=== PATIENT | male | born 1950 | race Caucasian/White ===

== ENCOUNTER 2019-01-03 00:30 | Inpatient (IN) | payer MEDICARE, OTHER ==
[2019-01-03 01:06] LABS: #Basophils 0.1 thou/uL (0.0-0.2); #Eosinphils 0.3 thou/uL (0.0-0.7); #Lymphocytes 1.5 thou/uL (1.20-3.40); #Monocytes 0.7 thou/uL (0.11-0.59); #Neutrophils 7.4 thou/uL (1.40-6.50); %Basophils 0.7 % (0.0-1.0); %Eosinophils 2.7 % (0.0-10.0); %Monocytes 7.2 % (0.0-10.0); %Neutrophils 74.4 % (42.0-75.0); Hemoglobin 13.9 g/dL (14.0-18.0); Mean Corpuscular HGB CONC 34.2 g/dL (32.0-36.0); Mean Corpuscular Hemoglobin 31.9 pg (27.0-31.0); Mean Corpuscular Volume 93.2 fL (78.0-98.0); Mean Platelet Volume 8.6 fL (7.4-10.4); Platelet Count 193 thou/uL (130-400); RBC Distribution Width 12.1 % (11.5-14.5); Red Blood Cell (RBC) Count 4.35 mill/uL (4.70-6.10); White Blood Cell (WBC) Count 9.9 thou/uL (4.8-10.8)
[2019-01-03] MEDS ORDERED: Ondansetron PF 4 MG/2 ML Vial ONE (01:08)
[2019-01-03] MEDS ORDERED: Morphine 4 MG/ML VIAL ONE (01:08)
[2019-01-03] MEDS ORDERED: Ketorolac Tromethamine 30 MG/ML VIAL ONE (01:08)
[2019-01-03 01:26] LABS: ALT (SGPT) 26 U/L (8-55); AST (SGOT) 23 U/L (5-34); Albumin 4.1 g/dL (3.4-4.8); Alkaline Phosphatase 54 U/L (40-150); Anion Gap 15 mmol/L (10-20); BUN (Urea Nitrogen) 40 mg/dL (8.4-25.7); Bilirubin, Total 0.4 mg/dL (0.2-1.2); Calc. Creatinine Clearance 0 mL/min (70-130); Calcium 10.3 mg/dL (7.8-10.44); Carbon Dioxide 25 mmol/L (23-31); Chloride 102 mmol/L (98-107); Estimated GFR-MDRD 34; Glucose 171 mg/dL (80-115); Potassium 4.3 mmol/L (3.5-5.1); Protein, Total 7.1 g/dL (5.8-8.1); Sodium 138 mmol/L (136-145)
[2019-01-03 02:12] LABS: Bacteria/HPF None Seen HPF (None Seen); Bilirubin Negative (Negative); Blood, Urine 2+ (Negative); Clarity Clear (Clear); Glucose, Urine (Dipstick) 100 mg/dL (Negative); Leukocyte Negative Leu/uL (Negative); Nitrite Negative (Negative); Protein, Urine (Dipstick) 20 mg/dL (Neg-Trace); RBC/HPF 21-50 HPF (0-3); Squamous Epithelial None Seen HPF (0-3); Urobilinogen Normal mg/dL (Less than 2); WBC/HPF 0-3 HPF (0-3)
[2019-01-03 02:20] LABS: Calcium Oxalate Crystals 2+ HPF (None Seen)
[2019-01-03] MEDS ORDERED: Acetaminophen 325 MG TAB PO PRN ×2 (04:39→09:30)
[2019-01-03] MEDS ORDERED: Ondansetron ODT 4 MG TAB SL PRN (04:39)
[2019-01-03] MEDS ORDERED: Ondansetron PF 4 MG/2 ML Vial IVP PRN (04:39)
[2019-01-03] MEDS ORDERED: Morphine 2 MG/ML SYRINGE SLOW IVP PRN (04:40)
[2019-01-03] MEDS ORDERED: Morphine 4 MG/ML VIAL SLOW IVP PRN (04:40)
[2019-01-03 04:47] VITALS: BMI 41.3
--- NOTE | 2019-01-03 07:41 | CT ---
PRELIMINARY REPORT/[facility]/EMERGENCY AFTER HOURS PROCEDURE: EXAM: CT Abdomen and Pelvis Without Contrast EXAM DATE/TIME: 01/03/2019 12:58 AM CLINICAL HISTORY: 68 years old, male; Abdominal pain; Prior surgery; Patient HX: [id number] presents to the ED with right testicular pain onset 2.5 hours ago. PT reports the pain radiates to his back (right flank). PT state s pain today is similar to previous kidney stone. PT reports he had to have lithotripsy to remove stone TECHNIQUE: Imaging protocol: Axial computed tomography images of the abdomen and pelvis without contrast. COMPARISON: No relevant prior studies available. FINDINGS: Liver: Hepatic steatosis. Gallbladder and bile ducts: Normal. No calcified stones. No ductal dilation. Pancreas: Normal. No ductal dilation. Spleen: Normal. No splenomegaly. Adrenals: Normal. No mass. Kidneys and ureters: 1.2 cm obstructing stone proximal right ureter causing mild to moderate obstructive uropathy. Left renal cysts. Stomach and bowel: No bowel wall thickening or intestinal obstruction. Appendix: Normal appendix. Intraperitoneal space: Normal. No free air. No significant fluid collection. Vasculature: Normal. No abdominal aortic aneurysm. Lymph nodes: Normal. No enlarged lymph nodes. Bladder: Unremarkable as visualized. Reproductive: Unremarkable as visualized. Bones/joints: No acute fracture. No dislocation. Soft tissues: Unremarkable. IMPRESSION: 1.2 cm obstructing stone proximal right ureter causing mild to moderate obstructive uropathy. Thank you for allowing us to participate in the care of your patient. Dictated and Authenticated by: Carlitos Almaraz MD 01/03/2019 2:13 AM Central Time ([place] & [place]) FINAL REPORT CT ABDOMEN AND PELVIS WITHOUT CONTRAST: FINDINGS/IMPRESSION: I agree with the preliminary report given by Dr. Carlitos Almaraz of [facility]. Transcribed Date/Time: 01/03/2019 7:53 AM
[2019-01-03 08:28] LABS: #Eosinphils 0.2 thou/uL (0.0-0.7); #Lymphocytes 1.5 thou/uL (1.20-3.40); #Monocytes 0.8 thou/uL (0.11-0.59); #Neutrophils 5.8 thou/uL (1.40-6.50); %Basophils 0.4 % (0.0-1.0); %Eosinophils 2.6 % (0.0-10.0); %Lymphocytes 17.4 % (21.0-51.0); %Monocytes 9.8 % (0.0-10.0); %Neutrophils 69.7 % (42.0-75.0); Hemoglobin 13.5 g/dL (14.0-18.0); Mean Corpuscular HGB CONC 34.3 g/dL (32.0-36.0); Mean Corpuscular Hemoglobin 31.7 pg (27.0-31.0); Mean Corpuscular Volume 92.4 fL (78.0-98.0); Mean Platelet Volume 8.9 fL (7.4-10.4); Platelet Count 183 thou/uL (130-400); RBC Distribution Width 12.1 % (11.5-14.5); Red Blood Cell (RBC) Count 4.26 mill/uL (4.70-6.10); White Blood Cell (WBC) Count 8.4 thou/uL (4.8-10.8)
[2019-01-03 08:37] LABS: Hemoglobin A1c 7.2 % (4.0-6.0)
[2019-01-03 08:48] LABS: Anion Gap 15 mmol/L (10-20); BUN (Urea Nitrogen) 43 mg/dL (8.4-25.7); Calc. Creatinine Clearance 74 mL/min (70-130); Calcium 9.7 mg/dL (7.8-10.44); Carbon Dioxide 24 mmol/L (23-31); Chloride 105 mmol/L (98-107); Estimated GFR-MDRD 35; Glucose 128 mg/dL (80-115); Potassium 4.7 mmol/L (3.5-5.1); Sodium 139 mmol/L (136-145)
[2019-01-03] MEDS ORDERED: Ondansetron PF 4 MG/2 ML Vial SLOW IVP PRN (09:33)
[2019-01-03] MEDS: Sodium Chloride 0.9% 1,000 ML IV SCH ×3 (09:35→22:33)
[2019-01-03] MEDS: Morphine 4 MG/ML VIAL SLOW IVP PRN ×2 (14:12→23:09)
[2019-01-03] MEDS ORDERED: Iothalamate Meglumine 60% 50 ML VIAL FS ONE (19:48)
[2019-01-03] MEDS ORDERED: Fentanyl 100 MCG/2 ML VIAL ONE ×2 (20:29→20:41)
[2019-01-03] MEDS ORDERED: B & O ONE (20:40)
[2019-01-03] MEDS ORDERED: Simvastatin 5 MG TAB PO SCH (21:00)
[2019-01-03] MEDS ORDERED: PACU-Morphine 4MG/ML VIAL SLOW IVP PRN (21:41)
[2019-01-03] MEDS ORDERED: Promethazine HCl 25 MG/ML VIAL SLOW IVP PRN ×2 (21:41→21:43)
[2019-01-03] MEDS ORDERED: HYDROmorphone 2 MG/ML VIAL SLOW IVP PRN (21:41)
[2019-01-03] MEDS ORDERED: Ondansetron HCl/PF 4 MG/2 ML Vial IVP PRN ×2 (21:41→21:43)
[2019-01-03] MEDS ORDERED: Promethazine HCl 25 MG/ML VIAL IM PRN ×2 (21:41→21:43)
[2019-01-03] MEDS ORDERED: HYDROcodone/Acetaminophen 5/325 mg Tablet PO PRN (21:58)
[2019-01-03] MEDS ORDERED: Trospium 20 MG TAB PO SCH (22:15)
[2019-01-03] MEDS: Lisinopril 10 MG TAB PO SCH (22:33)
--- NOTE | 2019-01-03 22:56 | CON ---
DATE OF CONSULTATION: 01/03/2019 REASON FOR CONSULTATION: 1. Right-sided flank pain with nausea and radiation of pain to the right testicle. 2. Right-sided 1.1 cm calculus, lodged at the right ureteropelvic junction. HISTORY OF PRESENT ILLNESS: Mr. 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 He had a lithotripsy to treat his previous stone and was previously a patient of the [facility]. The patient on this admission developed acute onset right-sided flank pain with radiation to his right testicle. He has had severe pain symptoms and has relatively large stone. His comorbid medical factors include obesity, CDC class 3+ with a current BMI of 41.4, and diabetes, currently on metformin 500 mg twice daily. The patient has been n.p.o. since 01/02/2019. ALLERGIES: NO KNOWN DRUG ALLERGIES. HOME MEDICATIONS: Complete home medication list includes the followin. Metformin 500 mg p.o. b.i.d. 2. Simvastatin 20 mg p.o. at bedtime. 3. Krill oil one tablet p.o. daily. 4. Vitamin D3 2000 units p.o. daily. 5. Aspirin 81 mg p.o. daily. PAST MEDICAL HISTORY: 1. Kidney stones. 2. Dyslipidemia. 3. Diabetes mellitus, type 2. PAST SURGICAL HISTORY: 1. The patient has had arthroscopic surgery of his shoulder. 2. Extracorporeal shockwave lithotripsy of a kidney stone many years ago. FAMILY MEDICAL HISTORY: Not contributory. 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 He coached in [place] and now lives in the [facility]. No current substance abuse issues. He is a never smoker. PHYSICAL EXAMINATION: VITAL SIGNS: The patient is afebrile. Current temperature 98.1, pulse 72, respirations 16, O2 saturation on room air is 96%, and blood pressure is 151/82. He is currently on morphine for pain management. HEAD, EYES, EARS, NOSE, AND THROAT: Extraocular movements are intact. Sclerae are anicteric. Oropharynx is clear. NECK: Supple. LUNGS: Clear to auscultation bilaterally. There are body morphology associated auscultatory changes to the lungs. CARDIAC: Regular rate and rhythm. ABDOMEN: Soft, obese, and nontender. BACK: There is mild right-sided costovertebral angle tenderness. There is no tenderness on the left side. The patient reports radiation of pain symptoms to his right testis. GENITOURINARY: The phallus is circumcised and it is without lesion. Urethral meatus appears adequate. Testes are present bilaterally in the scrotum. They are smooth, anodular, and nontender. Palpation of inguinal canals finds no evidence of hernia. Digital rectal examination is deferred. EXTREMITIES: Within normal limits. RADIOLOGIC STUDIES: A CT scan of the abdomen and pelvis was performed at 12:59 a.m. on 01/03/2019. This study demonstrates multiple renal cysts on the left kidney. On the right side, there is a large calculus, which measures over 1 cm, lodged at the ureteropelvic junction. There is perinephric stranding or possible extravasation of urine in the midportion of the right kidney. The distal ureter appears to be decompressed on the right and left side. The patient's bladder is thin walled indicating probable reasonable emptying. The patient's prostate gland was moderately enlarged. There did not appear to be a significant mass associated with the prostate based on the CT imaging studies. There are no calcifications observed either. LABORATORY STUDIES: The patient's white count is 8400, hemoglobin is 13.5 with hematocrit of 39.4, and neutrophil count is normal, range at 69.7% with an ANC decreasing from 7.4 yesterday to 5.8 today. Serum chemistries show an apparent bump in the patient's creatinine and blood urea nitrogen measured at 43 on blood urea nitrogen today and 1.92 on creatinine today. His hemoglobin A1c is elevated at 7.2. Serum calcium is elevated at admission at 10.3. Potassium is in the normal range. ASSESSMENT: Right-sided ureteropelvic junction obstructing calculus at 1.1 cm. Stone is too high to directly address today other than by stenting. I am recommending a right double-J ureteral stent with interval hydration and possible dilation of the ureter passively. The patient has had previous success with extracorporeal shockwave lithotripsy, which would suggest a stone that possibly could be treated using lithotripsy; however, he has calcium oxalate crystals observed in his urine on the urinalysis, and due to that, likely has calcium oxalate stones. These are better addressed by ureteroscopic means and that could be arranged after an appropriate period of dilation with an indwelling stent. DISPOSITION/PLANS: This patient does not appear to be otherwise toxic other than the history of diabetes and would be appropriate for discharge home if appropriately stable after placement of a stent today. The patient's discharge medications will probably require VESIcare for bladder spasm, phenazopyridine, appropriate antibiotic, and pain medications such as [place]. Over 45 minutes of initial consultation and assessment time was spent in evaluation of this patient today exclusive of any surgical procedures performed. Job ID: [id number]
--- NOTE | 2019-01-04 02:01 | HP ---
CHIEF COMPLAINT ON ADMISSION: Right-sided testicular pain with obstructive nephrolithiasis. HISTORY OF PRESENT ILLNESS: The patient is a 68-year-old male who states he woke up from sleep at about 2 in the morning with severe right testicular pain. It radiated into his back. It felt similar to other episodes he has had that were due to kidney stones. It was most severe in his right testicle and was rated at 3/10 on arrival in the emergency room. The sudden onset also was associated with nausea, but he has not vomited. Denies diarrhea as well a fever or constipation. CT in the emergency room revealed a 1.2, right-sided ureteral stone. Dr. Morrison was contacted for admission and Dr. Suarez has already agreed to see the patient in consultation. PAST MEDICAL HISTORY: Significant for non-insulin dependent diabetes, history of kidney stones, osteoarthritis, obesity, noncompliance generally with medical care and dyslipidemia. PAST SURGICAL HISTORY: Includes shoulder surgery in 2003. SOCIAL HISTORY: He is a past smoker and has quit smoking less than 10 years ago, approximately 3 years ago. Denies drug or alcohol use. ALLERGIES: HE HAS NO KNOWN DRUG ALLERGIES. MEDICATIONS ON ADMISSION: Include: 1. Simvastatin 10 mg daily. 2. Aspirin 81 mg daily. 3. Metformin 500 mg daily. REVIEW OF SYSTEMS: At the time of admission, CONSTITUTIONAL: Denies fever, chills or general malaise. HEENT: Denies drainage, pain or sores in his ear, nose or throat. CHEST: Denies cough or dyspnea. CARDIOVASCULAR: Denies chest pain or palpitations. GI: Admits to nausea, but no vomiting or diarrhea. : Complains of right testicular pain that radiates around to his flank, but denies blood in urine or stool. MUSCULOSKELETAL: Has chronic large joint pain, but otherwise no new aches or pains. SKIN: No new rashes or lesions. NEUROLOGIC: No trouble with mentation, hypoesthesia, anesthesia, has hallucinations. PHYSICAL EXAMINATION: At the time of admission, VITAL SIGNS: Blood pressure 171/66, pulse 75, respirations 16, temperature 98.9, pain at a 3/10, O2 saturation 98% on room air. GENERAL: This is an obese male, alert, oriented, and cooperative. HEENT: Normocephalic, atraumatic. Pupils are equal, round, and reactive to light. Extraocular muscles are intact. TMs nares pharynx are clear. Membranes are moist. NECK: Supple. Trachea midline. No mass. No bruits. CHEST: Clear to auscultation. HEART: Regular rate and rhythm without murmur. ABDOMEN: Obese, unable to appreciate organomegaly. Nontender to exam. Bowel sounds normal. : Deferred. EXTREMITIES: Without clubbing, cyanosis, or edema. Normal range of motion present. SKIN: Without acute rashes or lesions. NEUROLOGIC: Cranial nerves are intact. Gait and cerebellar function are untested at this time. Sensory exam is grossly intact. Mental status is baseline, nonfocal. LABORATORY DATA: CT reports 1.2 mm stone in the right ureteral tract. WBCs 9.9, hemoglobin 13.9, hematocrit 40.5 with platelets at 193, unremarkable diff. Sodium 138, potassium 4.3, chloride 102, CO2 25, BUN 40, creatinine 2.0 with glucose at 171. Liver functions unremarkable. Urinalysis shows ketones, glucose and 2+ blood. ASSESSMENT: 1. Right ureteral stone, 1.2 cm in size. 2. Acute renal insufficiency. 3. Ydd-oyrylie-mpevnkmbe diabetes with general noncompliance with medical care. PLAN: Dr. Suaerz has been already consulted for urological treatment of the stone. We will provide pain management, IV fluid, serial re-evaluation. Job ID: [id number]
--- NOTE | 2019-01-04 03:07 | OP ---
DATE OF PROCEDURE: 01/03/2019 PREPROCEDURE DIAGNOSES: 1. Right ureteropelvic junction calculus, N20.0. 2. High-grade ureteral obstruction with hydronephrosis. POSTPROCEDURE DIAGNOSES: 1. Right ureteropelvic junction calculus, N20.0. 2. High-grade ureteral obstruction with hydronephrosis. 3. 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 4. 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 PROCEDURES PERFORMED: 1. Cystourethroscopy with right-sided stent placement, 57245. 2. Right-sided retrograde pyelography, 44803. SPECIMENS REMOVED: Urine for culture. DRAINS AND TUBES: A 4.5-Czech x 28 cm double-J ureteral stent in patient's right ureter, no string attached. ESTIMATED BLOOD LOSS: 0 mL. FINDINGS: The patient has multilevel urethral stricture involving the anterior urethra as well as the perineal urethra. There is about a 2-cm gap between the urinary sphincter and the proximal-most urethral stricture. The patient's prostate gland is enlarged and he has a median lobe. The patient's bladder was izquierdo endoscopically evaluated and he was found to have no urinary flow from the right ureteric orifice. DESCRIPTION OF PROCEDURE: The patient was appropriately identified in the preoperative holding area. Informed written consent was obtained. He was brought to the operative suite, placed in supine position on the cysto-fluorographic table and general anesthesia was established using LMA airway. The patient was repositioned in the supine lithotomy position and prepped and draped in usual sterile fashion. Following sterile prep, we performed appropriate time-out identifying the patient, the side of operation, and the procedures. The patient then underwent cystoscopic evaluation using a 22-Czech cystoscope sheath and a 30-degree optic. The patient's urethra was notable for strictures in the anterior urethra and the proximal urethra in the perineal area just distal to the urinary sphincter. These were negotiated using the scope and bypassed. The patient's prostate gland was entered which appeared to be obstructive and neovascularization. The patient had a median lobe formation which formed a rising gruber configuration. The patient's bladder was then izquierdo endoscopically evaluated. There was trabeculation stage III with saccule formation. Left and right ureteric orifices were identified. Although a peristaltic motion was present on the right side, there was no evidence of urine being produced. On the left side, there was urine being produced, no abnormalities noted there. We then performed placement of a 0.035 angled Glidewire into the patient's right collecting system. This met an obstruction at the level of ureteropelvic junction which was palpable on the wire and faintly visible on fluorography. Due to the patient's body mass index, which is greater than 40, fluorographic evaluation of this patient is difficult. We placed the wire in the upper pole area and then subsequently passed a 5-Czech Pollack catheter over the wire into the upper collecting system. We aspirated urine for culture. Following aspiration of urine for culture, we performed retrograde pyelography outlining a stone which had been dislodged from the ureteropelvic junction. We then performed placement of a 4.5-Czech x 28 cm double-J ureteral stent in the patient's right collecting system. We removed the string. Good coil was obtained in the patient's renal pelvis and in the bladder. The patient's bladder was drained completely. A belladonna and opioid suppository was applied per rectum at this portion of the procedure. The patient's prostate gland was palpated during the course of the placement of a belladonna and opioid suppository. Prostate gland appeared to be relatively firm and characteristic in both left and right lobes. The patient was subsequently returned to the supine position and awakened. He was transported to the postop recovery area with an LMA airway in placed and this was removed subsequently in the postoperative recovery area. Estimated blood loss was 0 mL. COMPLICATIONS: None. Job ID: [id number]
[2019-01-04 06:41] LABS: #Eosinphils 0.1 thou/uL (0.0-0.7); #Lymphocytes 0.9 thou/uL (1.20-3.40); #Monocytes 0.6 thou/uL (0.11-0.59); #Neutrophils 5.5 thou/uL (1.40-6.50); %Basophils 0.5 % (0.0-1.0); %Eosinophils 1.3 % (0.0-10.0); %Lymphocytes 12.8 % (21.0-51.0); %Monocytes 8.3 % (0.0-10.0); %Neutrophils 77.1 % (42.0-75.0); Hemoglobin 13.2 g/dL (14.0-18.0); Mean Corpuscular HGB CONC 34.5 g/dL (32.0-36.0); Mean Corpuscular Hemoglobin 32.5 pg (27.0-31.0); Mean Corpuscular Volume 94.4 fL (78.0-98.0); Mean Platelet Volume 8.8 fL (7.4-10.4); Platelet Count 173 thou/uL (130-400); RBC Distribution Width 12.1 % (11.5-14.5); Red Blood Cell (RBC) Count 4.07 mill/uL (4.70-6.10); White Blood Cell (WBC) Count 7.2 thou/uL (4.8-10.8)
[2019-01-04 07:05] LABS: Anion Gap 12 mmol/L (10-20); BUN (Urea Nitrogen) 34 mg/dL (8.4-25.7); Calc. Creatinine Clearance 105 mL/min (70-130); Carbon Dioxide 22 mmol/L (23-31); Cardiac Risk 3.8 (Less than 4.5); Chloride 107 mmol/L (98-107); Cholesterol 138 mg/dl (< 200 Desired); Estimated GFR-MDRD 52; Glucose 148 mg/dL (80-115); HDL Cholesterol 36 mg/dL (>60 Neg Risk); LDL Cholesterol, Calculated 61 mg/dL; Potassium 4.2 mmol/L (3.5-5.1); Sodium 137 mmol/L (136-145); Triglycerides 205 mg/dL (Less than 150); Uric Acid 7.9 mg/dL (3.5-7.2)
[2019-01-04] MEDS ORDERED: metFORMIN 500 MG TAB PO SCH (08:00)
[2019-01-04] MEDS: Lisinopril 10 MG TAB PO SCH (08:10)
[2019-01-04] MEDS: Phenazopyridine HCl 97.5 MG TABLET PO SCH ×2 (08:10→12:17)
[2019-01-04] MEDS: Sodium Chloride 0.9% 1,000 ML IV SCH (08:15)
[2019-01-04] MEDS ORDERED: Prevnar 13-Val Conj/PF 0.5 ML SYRINGE IM ONE ×2 (09:00→11:00)
[2019-01-04] MEDS ORDERED: Trospium 20 MG TAB PO SCH (09:00)
[2019-01-04 14:11] VITALS: BP 133/74; TEMP 98.2
== END 2019-01-04 16:22 | disposition home or self-care (01) | DRG 660 ==
LOC: ERS 00:30 → T4-B 04:25
PROVIDERS: ADMIT Specialist; ATTEND Specialist
PROC: 0T768DZ Dilation of Right Ureter with Intraluminal Device, Via Natural or Artificial Opening Endoscopic (ICD-10-PCS; principal; 2019-01-03)
PROC: BT1D0ZZ Fluoroscopy of Right Kidney, Ureter and Bladder using High Osmolar Contrast (ICD-10-PCS; 2019-01-03)
DX: N13.2 Hydronephrosis with renal and ureteral calculous obstruction (principal); Z68.41 Body mass index [BMI] 40.0-44.9, adult; E11.9 Type 2 diabetes mellitus without complications; M19.90 Unspecified osteoarthritis, unspecified site; E66.9 Obesity, unspecified; E78.5 Hyperlipidemia, unspecified; N28.9 Disorder of kidney and ureter, unspecified; N35.914 Unspecified anterior urethral stricture, male; Z91.19 Patient's noncompliance with other medical treatment and regimen; Z87.891 Personal history of nicotine dependence; Z79.82 Long term (current) use of aspirin; Z79.84 Long term (current) use of oral hypoglycemic drugs
CPT/HCPCS: 36415; 74176; 74420; 80048; 80053; 80061; 81003; 81015; 83036; 84550; 85025; 87086; 90471; 90670; C1758; G0009; J0744; J1885; J2270; J2405; J3010

== ENCOUNTER 2019-01-08 06:46 | Day surgery (SDC) | payer MEDICARE ==
[2019-01-07 16:24] VITALS: BMI 41.2
[2019-01-08 08:41] LABS: Platelet Count 208 thou/uL (130-400)
[2019-01-08 08:46] LABS: PTT 29.9 SEC (22.9-36.1); Prothrombin Time 13.4 SEC (12.0-14.7)
[2019-01-08 08:52] LABS: EPI 125 SEC (67-199)
[2019-01-08] MEDS ORDERED: ceFAZolin Sodium (SDC) 2 GM/100 ML BAG ONE (09:12)
[2019-01-08] MEDS ORDERED: Iothalamate Meglumine 60% 50 ML VIAL FS ONE (09:20)
[2019-01-08] MEDS ORDERED: Fentanyl 100 MCG/2 ML VIAL ONE (09:28)
[2019-01-08] MEDS ORDERED: Midazolam HCl 2 mg/2 ml Vial ONE (09:28)
--- NOTE | 2019-01-08 10:37 | RAD ---
ABDOMEN 1 VIEW: Date: 01/08/19 HISTORY: Preoperative evaluation. COMPARISON: Abdomen and pelvic CT scan without IV contrast dated 01/03/19. FINDINGS: Right ureteral stent is noted in place. Focal opacity overlying the right kidney lower pole suspiciou s for renal calculus. IMPRESSION: Right ureteral stent in place. Probable right lower pole renal calculus. POS: [facility]
--- NOTE | 2019-01-08 12:00 | OP ---
DATE OF PROCEDURE: 01/08/2019 PREOPERATIVE DIAGNOSIS: Right renal stone. POSTOPERATIVE DIAGNOSIS: Right renal stone. PROCEDURE PERFORMED: Right extracorporeal shockwave lithotripsy. ANESTHESIA: General. ESTIMATED BLOOD LOSS: Not recorded. FINDINGS: There was 1.2-cm stone that was in the right lower pole collecting system. It was treated with 2500 shocks at maximum kV level of 5. It did appear to fragment well. The stent was already in place and was left in. DESCRIPTION OF PROCEDURE: After obtained written and verbal consent from the patient, after documenting normal preoperative blood work and being sure we could see a stone on his KUB, he was taken to the operating suite. He was placed in the supine position on the treatment table. He was given a general anesthetic and oral obturator intubation. PlexiPulses were placed in his lower extremities and turned on. He was coupled to the lithotripsy unit. The stone was placed in treatment focal point. Shockwave therapy was commenced at a low rate and low kV after 200 to 300 shocks, a few minutes pause was given. The rate was then kept at 60 and it was then slowly brought up to level 5. Fluoroscopy was used intermittently to document stone fragmentation and to reposition as necessary. After 2500 shocks, the procedure was terminated and he was awakened, extubated, and taken by stretcher to recovery room. Job ID: [id number]
[2019-01-08] MEDS ORDERED: Rocuronium Bromide 10 MG/ML (10ML VIAL) ONE (16:16)
[2019-01-08] MEDS ORDERED: Esmolol 100 MG/10 ML VIAL ONE (16:16)
[2019-01-08] MEDS ORDERED: Ondansetron PF 4 MG/2 ML Vial ONE (16:16)
[2019-01-08] MEDS ORDERED: Lidocaine 1% PF 5 ML VIAL ONE (16:16)
[2019-01-08] MEDS ORDERED: PROPOFOL 200 MG/20 ML VIAL ONE (16:16)
[2019-01-08] MEDS ORDERED: Succinylcholine Chloride 20 MG/ML 10 ml SYRINGE FS ONE (16:16)
[2019-01-08] MEDS ORDERED: Dexamethasone 20 MG/5 ML VIAL ONE (16:16)
== END 2019-01-08 13:26 | disposition home or self-care (01) ==
LOC: SDC 06:46
PROVIDERS: ATTEND Urology
PROC: 0TF3XZZ Fragmentation in Right Kidney Pelvis, External Approach (ICD-10-PCS; principal; 2019-01-08)
DX: N20.0 Calculus of kidney (principal); E11.9 Type 2 diabetes mellitus without complications; E78.00 Pure hypercholesterolemia, unspecified; M19.90 Unspecified osteoarthritis, unspecified site; Z79.84 Long term (current) use of oral hypoglycemic drugs; Z79.899 Other long term (current) drug therapy
CPT/HCPCS: 36415; 74018; 85576; 85610; 85730; J0690; J1100; J2001; J2250; J2405; J2704; J3010

== ENCOUNTER 2019-01-21 06:46 | Day surgery (SDC) | payer MEDICARE ==
[2019-01-21] MEDS ORDERED: Iothalamate Meglumine 60% 50 ML VIAL FS ONE ×2 (06:57→11:36)
[2019-01-21] MEDS ORDERED: ceFAZolin Sodium (SDC) 2 GM/100 ML BAG ONE (07:12)
[2019-01-21] MEDS ORDERED: Fentanyl 100 MCG/2 ML VIAL ONE ×3 (07:31→13:18)
[2019-01-21 07:37] LABS: #Eosinphils 0.2 thou/uL (0.0-0.7); #Lymphocytes 1.4 thou/uL (1.20-3.40); #Monocytes 0.6 thou/uL (0.11-0.59); #Neutrophils 3.6 thou/uL (1.40-6.50); %Basophils 0.7 % (0.0-1.0); %Eosinophils 3.5 % (0.0-10.0); %Lymphocytes 23.6 % (21.0-51.0); %Monocytes 10.4 % (0.0-10.0); Hemoglobin 13.5 g/dL (14.0-18.0); Mean Corpuscular HGB CONC 34.5 g/dL (32.0-36.0); Mean Platelet Volume 9.1 fL (7.4-10.4); Platelet Count 203 thou/uL (130-400); RBC Distribution Width 11.8 % (11.5-14.5); Red Blood Cell (RBC) Count 4.21 mill/uL (4.70-6.10); White Blood Cell (WBC) Count 5.8 thou/uL (4.8-10.8)
[2019-01-21 07:57] LABS: Anion Gap 13 mmol/L (10-20); BUN (Urea Nitrogen) 36 mg/dL (8.4-25.7); Calc. Creatinine Clearance 103 mL/min (70-130); Calcium 10.3 mg/dL (7.8-10.44); Carbon Dioxide 25 mmol/L (23-31); Chloride 104 mmol/L (98-107); Estimated GFR-MDRD 55; Glucose 154 mg/dL (80-115); Potassium 3.9 mmol/L (3.5-5.1); Sodium 138 mmol/L (136-145)
--- NOTE | 2019-01-21 14:37 | RAD ---
EXAM: Retrograde IVP HISTORY: Right kidney stone retrieval COMPARISON: CT abdomen/pelvis 01/17/2019 FINDINGS/IMPRESSION: Limited intraoperative fluoroscopic views of the retrograde IVP were submitted f or interpretation. There is no evidence of hydronephrosis. No obvious calcifications or filling defects are seen. A right ureteral double-J stent is seen in good position at the completion of the procedure.
[2019-01-21] MEDS ORDERED: Phenazopyridine HCl 97.5 MG TABLET ONE ×2 (16:05→16:06)
[2019-01-21] MEDS ORDERED: HYDROcodone/Acetaminophen 5/325 mg Tablet ONE (16:40)
[2019-01-21] MEDS ORDERED: Heparin 10,000 UNITS/ 10 ML VIAL ONE (17:18)
--- NOTE | 2019-01-22 10:31 | OP ---
DATE OF PROCEDURE: 01/21/2019 PREOPERATIVE DIAGNOSIS: Right renal/ureteral stone. POSTOPERATIVE DIAGNOSIS: Right renal/ureteral stone. PROCEDURES PERFORMED: Cystoscopy, removal of right stent, right rigid ureteroscopy, right flexible ureteroscopy with laser lithotripsy of right ureteropelvic junction stone and extraction of stones. ANESTHESIA: General. ESTIMATED BLOOD LOSS: Less than 75 mL. DRAINS PLACED: A 6-Uzbek x 26 cm double-J stent with a string left attached to it. SPECIMENS: Center stone fragments sent, dry for stone analysis. INDICATIONS FOR SURGERY: This is a 68-year-old white male, who has been bothered with a right proximal ureteral stone. He came in and had an emergent stent placed by Dr. Suarez. About a week ago, he had ESWL. He has had a lot of difficulty with recurrent pain issues since that time and CT scan done noncontrast showed still a sizable stone fragment remaining in the right UPJ region. He has responded well to lithotripsies in the past, but he has put on a significant amount of girth and it may be that this is why the stone was incompletely treated or it maybe because of the size of it, but we are proceeding now with ureteroscopy. DESCRIPTION OF PROCEDURE: After obtained written and verbal consent from the patient, after receiving IV antibiotics, he was taken to the operating suite. He was placed in the supine position on the treatment table. PlexiPulses were placed on his lower extremities and turned on. He was given a general anesthetic and oral obturator intubation and then he was then placed in the dorsal lithotomy position, sterilely prepped and draped. Fluoroscopy unit built into the table was brought down and placed over him, so that we could easily see the kidney and ureter on the right side. Cystoscopy was performed with a 22-Uzbek sheath. This was well lubricated and passed under direct vision through the male urethra into the bladder with aid of a 30-degree lens and video camera and monitor. There was some stricture of the bulbous urethra, however, this was easily passed with a 22-Uzbek scope. The bladder was filled and emptied a couple of times and it was examined of both the 30-degree and the 70-degree lens. He had numerous stone fragments most likely from his ESWL in the urinary bladder and these were washed out with irrigating fluid. The distal end of the double-J stent was grasped and brought out through the tip of the urethral meatus. A guidewire was fed through this and up into the region of the renal pelvis. A Pollack catheter was placed over the guidewire and up in the region of the renal pelvis and the wire was removed and some contrast was injected, filling out the collecting system. There appeared to be some filling defects up in the kidney. The ureter appeared to be pretty open with a few small filling defects only. The wire was replaced through the open-ended catheter. The open-ended catheter was removed and then a small caliber rigid ureteroscope was brought in and passed through the male urethra into the bladder and up the right ureter. We went up about a [address] up the ureter and we saw nothing but some very small stone fragments, nothing of any size. We then fed a Stiff blue guidewire through the rigid ureteroscope and up into the area of the renal pelvis, so that we had a green wire as a safety and a Stiff blue guidewire both going up to the region of the renal pelvis. The rigid ureteroscope was removed and we then brought in a ureteral sheath. We used the obturator from the ureteral sheath to try to go over the tip of the wire, but it was very tight and so we did not force this issue and felt we could not easily get a sheath up there. So at this point, we went ahead and over our blue wire, we advanced the flexible ureteroscope and this went up over the blue wire all the way up into the renal pelvis. We saw no sizable stone fragments in the ureters as we went up. Once we reached the renal pelvis, we went ahead and removed the blue wire and then inspected the calyceal system. He had small stone fragments in the lower calyceal system and in the mid calyceal system, we found a stone that was probably a little less than a centimeter in size. It looked like the stone that was probably sitting at the UPJ renal pelvic region on his last CT scan. We then brought in a small caliber holmium laser fiber and used this to break up the stone into smaller and smaller pieces. Once we had them broken up into what appeared to be small enough pieces, we backed the flexible scope out. At this time, we went with a smaller ureteral sheath and obturator and this did go up easily to the region of the renal pelvis and then we looked in with our flexible scope after removing the blue guidewire and we were able to use a Nitinol basket to remove the stone fragments and send them for pathology. We did then backed the sheath out and under direct vision, found another stone fragment that had probably washed down from above that was too big to get into this sheath itself and this was broken up into smaller pieces with the laser and then the two was removed with a Nitinol basket and sent off. The rest of the ureter along its entirety showed no sizable stone fragments. Once this was completed, we went ahead and back loaded our green guidewire through a 22-Uzbek sheath and passed this back into the bladder. We passed a 5-Uzbek Pollack catheter over a green guidewire up into the region of the renal pelvis and injected about 15 mL of contrast. There were few small filling defects noted, but no extravasation along the course of the ureter. We then replaced our green guidewire and removed the Pollack catheter and brought in a 6 x 26 Polaris double-J stent and placed it over the guidewire, pushing it up into place with aid of a pusher, so that its proximal end coiled in the renal pelvis and its distal end coiled in the bladder when the wire was removed. The bladder was drained. The instruments were removed. The stone fragments were sent dry for stone analysis and he was taken out of the dorsal lithotomy position, awakened, extubated, and taken by caleber to the recovery room. Job ID: [id number]
== END 2019-01-21 18:10 | disposition home or self-care (01) ==
LOC: SDC 06:46
PROVIDERS: ATTEND Urology
PROC: 0TC68ZZ Extirpation of Matter from Right Ureter, Via Natural or Artificial Opening Endoscopic (ICD-10-PCS; principal; 2019-01-21)
PROC: 0T768DZ Dilation of Right Ureter with Intraluminal Device, Via Natural or Artificial Opening Endoscopic (ICD-10-PCS; 2019-01-21)
DX: N20.1 Calculus of ureter (principal); N35.912 Unspecified bulbous urethral stricture, male; M19.90 Unspecified osteoarthritis, unspecified site; E78.00 Pure hypercholesterolemia, unspecified; E11.9 Type 2 diabetes mellitus without complications; Z98.890 Other specified postprocedural states; Z87.442 Personal history of urinary calculi; Z79.82 Long term (current) use of aspirin; Z79.84 Long term (current) use of oral hypoglycemic drugs; Z79.899 Other long term (current) drug therapy
CPT/HCPCS: 36415; 74420; 80048; 82365; 85025; 88300; C1758; J0690; J1644; J3010

== ENCOUNTER 2019-01-24 16:05 | Inpatient (IN) | payer MEDICARE, OTHER ==
[2019-01-24] MEDS ORDERED: ISOVUE-370 76%-LOCM 1 ML ONE (16:36)
[2019-01-24] MEDS ORDERED: Morphine 4 MG/ML VIAL ONE (16:51)
[2019-01-24 16:53] LABS: Hemoglobin 13.8 g/dL (14.0-18.0); Mean Corpuscular HGB CONC 34.3 g/dL (32.0-36.0); Mean Corpuscular Hemoglobin 31.8 pg (27.0-31.0); Mean Corpuscular Volume 92.7 fL (78.0-98.0); Mean Platelet Volume 9.7 fL (7.4-10.4); Platelet Count 217 thou/uL (130-400); Red Blood Cell (RBC) Count 4.33 mill/uL (4.70-6.10); White Blood Cell (WBC) Count 21.3 thou/uL (4.8-10.8)
[2019-01-24 17:06] LABS: ALT (SGPT) 20 U/L (8-55); AST (SGOT) 15 U/L (5-34); Albumin 4.1 g/dL (3.4-4.8); Alkaline Phosphatase 64 U/L (40-150); Anion Gap 15 mmol/L (10-20); BUN (Urea Nitrogen) 18 mg/dL (8.4-25.7); Bilirubin, Total 0.9 mg/dL (0.2-1.2); Calc. Creatinine Clearance 0 mL/min (70-130); Calcium 10.2 mg/dL (7.8-10.44); Carbon Dioxide 21 mmol/L (23-31); Chloride 102 mmol/L (98-107); Estimated GFR-MDRD 66; Globulin 3.3 g/dL (2.4-3.5); Glucose 160 mg/dL (80-115); Potassium 3.9 mmol/L (3.5-5.1); Protein, Total 7.4 g/dL (5.8-8.1); Sodium 134 mmol/L (136-145)
[2019-01-24 17:13] LABS: Bilirubin Small (Negative); Blood, Urine Large (Negative); Glucose, Urine (Dipstick) 250 mg/dL (Negative); Leukocyte Large (Negative); Nitrite Positive (Negative); Protein, Urine (Dipstick) > or equal to 300 mg/dL (Neg-Trace)
[2019-01-24 17:16] LABS: Clarity Hazy (Clear)
[2019-01-24 17:19] LABS: Bacteria/HPF 2+ HPF (None Seen); RBC/HPF Greater than 50 HPF (0-3); Renal Epithelial 0-3 HPF (None Seen); WBC/HPF 21-50 HPF (0-3)
[2019-01-24] MEDS ORDERED: cefTRIAXone\\ROCEPHIN 1 GM VIAL ONE (17:37)
[2019-01-24] MEDS ORDERED: Sodium Chloride 0.9% 100 ML ONE (17:37)
[2019-01-24 17:43] LABS: Band 13 % (5-11); Lymphocytes 2 % (21-51); MDiff Complete? YES; Monocytes 7 % (0-10); Neutrophil 75 % (42-75); Platelet Morphology Comment Appears Adequate; RBC Morphology Normal; Reactive Lymphocytes 3 % (0-10)
--- NOTE | 2019-01-24 17:53 | CT ---
CT ANGIOGRAM THORAX WITH CONTRAST: (CTA pulmonary angiogram) DATE: 01/24/2019 HISTORY: 68-year-old male with dyspnea TECHNIQUE: IV injection of iodinated contrast. Scan acquisition timing attempted to coincide with iodinated contrast bolus reaching maximal density in pulmonary arteries. 3-D MIP reconstructions. FINDINGS: Pulmonary thromboembolism: None. Lungs: No consolidation or edema. No bullae. Lungs are clear. Pneumothorax: None. Pleural effusion: None. Thoracic aorta: No dissection or aneurysm. No cardiomegaly or pericardial effusion. No hilar or mediastinal lymphadenopathy. Diffusely low hepatic attenuation consistent with fatty liver. IMPRESSION: 1. No pulmonary thromboembolism. 2. Hepatic steatosis
[2019-01-24] MEDS ORDERED: B & O PR SCH (18:15)
--- NOTE | 2019-01-24 18:30 | RAD ---
Radiograph abdomen one view: DATE: 01/24/2019 Time: 6:19 PM HISTORY: 68-year-old male with hematuria and penile pain FINDINGS: There is a right ureteral stent. There is faint IV contrast material in nondilated bilateral renal ca lyces and within the nearly empty urinary bladder which has a Etienne catheter balloon. The right side of the ureteral stent abuts the right side of the Etienne catheter balloon. IMPRESSION: 1. Right ureteral stent. 2. Etienne catheter. 3. No hydronephrosis.
[2019-01-24 20:36] VITALS: BMI 39.9
--- NOTE | 2019-01-24 20:54 | HP ---
CHIEF COMPLAINT: Sepsis and renal colic with renal lithiasis. HISTORY OF PRESENT ILLNESS: The patient is a 68-year-old male, who has been dealing with kidney stones off and on most of his adult life. This recent episode began several weeks ago. Dr. Stallings has been already involved and has actually placed the stent previously. The patient last saw Dr. Stallings 3 days ago when he actually went up the stent and removed large fragments of stone. The patient states that in the last 24 hours, he began to have chills and sweats. He finally came to the emergency room on the day of admission, where his white count was noted to be 21,000, and he had been febrile. At this point, he is being admitted for pain control, IV antibiotics, and Dr. Stallings has already been to seem him and will continue to follow him during his hospitalization. PAST MEDICAL HISTORY: Significant for dyslipidemia, srh-wajzzba-hbbcxjyti diabetes, morbid obesity, osteoarthritis. As mentioned above, frequent episodes of kidney stones and general noncompliance medically. PAST SURGICAL HISTORY: Includes shoulder surgery in 2003 and instrumentation concerning his urinary tract. SOCIAL HISTORY: He is a previous smoker, quit less than 10 years ago. Denies drug or alcohol use. He is . ALLERGIES: NO KNOWN DRUG ALLERGIES. MEDICATIONS ON ADMISSION: Include simvastatin 20 mg at bedtime, aspirin 81 mg daily, metformin 500 mg daily. REVIEW OF SYSTEMS: CONSTITUTIONAL: He admits to fever, chills, or general malaise. HEENT: Denies drainage or pain in the ears, nose, and throat. CHEST: Denies cough or dyspnea. CARDIOVASCULAR: Denies palpitations or chest pain. GI: Admits to nausea. Occasionally, has vomiting, but denies diarrhea. : Urinary frequency, urinary pain, blood in urine. MUSCULOSKELETAL: General aches and pains in the major joints. SKIN: No new rashes or lesions. NEUROLOGIC: Denies headaches, trouble with mentation, hypesthesia or anesthesia. PHYSICAL EXAMINATION: VITAL SIGNS: At the time of admission are stable except for his temperature, which is elevated, pulse rate is at 103, blood pressure is at 133/68. GENERAL: This is a morbidly obese male, alert, oriented, cooperative. HEENT: Normocephalic and atraumatic. Pupils are equal, round, and reactive to light. Extraocular muscles are intact. TMs, nares, and pharynx are clear. NECK: Supple. Trachea midline. CHEST: Clear to auscultation. HEART: Regular rate and rhythm without murmur. ABDOMEN: Obese, unable to appreciate organomegaly. : With Etienne in place, draining Pyridium colored urine. EXTREMITIES: Without clubbing, cyanosis, or edema. SKIN: Without acute rashes or lesions. NEUROLOGIC: Cranial nerves are intact. Unable to test gait and cerebellar function at this time. Mental status is at baseline. Sensory exam is intact. LABORATORY DATA: Lab work on admission shows WBCs at 21.3, hemoglobin 13.8, hematocrit 40.1 with platelets at 217. Sodium is 134, potassium is 3.9, chloride is 102, CO2 is 21, BUN is 18, creatinine is 1.11, GFR is 66, glucose is 116, lactic acid at 1.9. Liver functions unremarkable. Urinalysis, large blood, positive nitrites, greater than 50 rbc's, 21 to 50 wbc's. IMAGING STUDIES: The abdominal x-ray shows stent in place with stones. CT angio was done because of an elevated D-dimer. It was unremarkable for pulmonary embolism. ASSESSMENT: 1. Sepsis. 2. Renal lithiasis. 3. Uzr-llrwocb-dbklqpgin diabetes. 4. Dyslipidemia. PLAN: 1. Plan will be to continue IV antibiotics, serially re-evaluate. 2. Pain management. 3. Dr. Stallings will follow on the case. Job ID: [id number]
[2019-01-24] MEDS ORDERED: Ondansetron PF 4 MG/2 ML Vial IVP PRN (20:56)
[2019-01-24] MEDS: Sodium Chloride 0.9% 1,000 ML IV SCH (21:10)
[2019-01-24] MEDS: Morphine 4 MG/ML VIAL SLOW IVP PRN (21:13)
[2019-01-24] MEDS: Phenazopyridine HCl 97.5 MG TABLET PO SCH (21:19)
[2019-01-24] MEDS ORDERED: B & O PR PRN (21:53)
--- NOTE | 2019-01-24 22:26 | PRG ---
DATE OF SERVICE: 01/24/2019 The patient has been moved up to room 243. He seems to be resting more comfortably. He is a little tachycardic, but afebrile with good O2 sats on room air. Blood pressure is about 140 systolic. Urine output seems to be adequate. He seems like he is having less discomfort since a B and O suppository. He is not having as much chills as he was having. He has received Rocephin. I have also written to give him a gram of vancomycin q.24 and change Rocephin to 1 g q.12 hours until we get the cultures back. I have written he get more B and O suppositories. I would like to try to get the catheter out of him tomorrow if he is feeling better, so we may just hold the B and O suppositories in the morning. I will check that out to Dr. Contreras, who will be covering for me tomorrow on Sunday. I appreciate Dr. Morrison in seeing him and helping with his medical care also. Job ID: [id number]
[2019-01-24] MEDS: Vancomycin HCl 1 GM in Premix Bag 1 BAG IVPB SCH (22:44)
[2019-01-25] MEDS: Morphine 4 MG/ML VIAL SLOW IVP PRN ×4 (00:24→22:17)
[2019-01-25] MEDS: Acetaminophen 325 MG TAB PO PRN (05:13)
[2019-01-25] MEDS ORDERED: cefTRIAXone\\ROCEPHIN 1 GM in Sodium Chloride 0.9% 100 ML IVPB SCH ×2 (06:00→18:00)
[2019-01-25 06:13] LABS: Anion Gap 14 mmol/L (10-20); BUN (Urea Nitrogen) 15 mg/dL (8.4-25.7); Calc. Creatinine Clearance 116 mL/min (70-130); Calcium 9.3 mg/dL (7.8-10.44); Carbon Dioxide 22 mmol/L (23-31); Chloride 104 mmol/L (98-107); Estimated GFR-MDRD 62; Glucose 179 mg/dL (80-115); Potassium 3.5 mmol/L (3.5-5.1); Sodium 136 mmol/L (136-145)
[2019-01-25 06:53] LABS: Band 14 % (5-11); Hemoglobin 12.3 g/dL (14.0-18.0); Lymphocytes 1 % (21-51); MDiff Complete? YES; Mean Corpuscular HGB CONC 32.8 g/dL (32.0-36.0); Mean Corpuscular Hemoglobin 30.4 pg (27.0-31.0); Mean Corpuscular Volume 92.8 fL (78.0-98.0); Mean Platelet Volume 9.4 fL (7.4-10.4); Monocytes 4 % (0-10); Neutrophil 81 % (42-75); Platelet Count 166 thou/uL (130-400); RBC Distribution Width 12.2 % (11.5-14.5); Red Blood Cell (RBC) Count 4.04 mill/uL (4.70-6.10); White Blood Cell (WBC) Count 22.7 thou/uL (4.8-10.8)
[2019-01-25] MEDS: Phenazopyridine HCl 97.5 MG TABLET PO SCH ×5 (08:42→21:27)
[2019-01-25] MEDS: Sodium Chloride 0.9% 1,000 ML IV SCH ×4 (08:43→22:17)
[2019-01-25] MEDS: Aspirin 81 mg Enteric Coated Tablet PO SCH (08:56)
--- NOTE | 2019-01-25 10:58 | CON ---
DATE OF CONSULTATION: HISTORY OF PRESENT ILLNESS: This is a 68-year-old white male. He had a stent placed for a right obstructing ureteral stone that was done on the [address] Doug Suarez. He had some evidence of some stricture disease at that time, but his scope was easily passed. His urine culture from that visit was no growth. He had been sent home on some Cipro, was doing better. I saw him in my office and we treated him with shockwave lithotripsy on the , the stent was not removed. At that point, it looked like the stone had moved into his lower pole. It did appear to have fragmented. I saw him in my office on the night of January. He passed some fragments, but he was not feeling well. He had a poor appetite, some nausea, increasing pain, was having a fair amount of hematuria. A KUB at that time showed the stone was probably in the proximal ureter, but he is a gentleman of some size. It was difficult to tell. I think the report on the KUB had actually been read as negative. I did a noncontrast CAT scan that did show that it was now a proximal ureteral stone again in pieces, but one piece has looked very large. We did a culture on the night that came back negative. He had been kept on Macrobid while the stent was in. Three days ago, he underwent right ureteroscopy and laser lithotripsy and stone extraction of probably about a centimeter size stone that was up in the renal pelvis region. Stent was placed with the string left attached. This was done with Ancef antibiotic coverage. He did okay for a day or two, but today he has been miserable. He is having chills, having a lot of urgency, frequency and postvoid residual found him to have about 350 mL in the bladder. His temperature was 99, on repeat it was 100.2. He was somewhat tachypneic, just did not look good and recommended he to go to the ER[place] [id number]. His CBC is normal. His creatinine is normal. His D-dimer is up a little bit. He had a CT angio done that has not yet been read. I had left the Etienne catheter in the he is having a fair amount of bladder spasm related to it. His urine is concentrated and somewhat stained from taking some Pyridium. He has been drinking okay at home, but he has not had much of an appetite for the last couple of days for solid food. He has not been vomiting. He has not been having any significant amount of flank discomfort on the right. He has had some left-sided back discomfort, but he relates this to straining himself trying to urinate. PAST SURGICAL HISTORY: Includes stone procedures with ESWL in the past, shoulder repair in 2014. PAST MEDICAL HISTORY: He has probable history of diabetes, non-insulin dependent, arthritis, obesity, hyperlipidemia. MEDICATIONS: Routine medicines have been: 1. Simvastatin. 2. Aspirin. 3. Metformin. 4. He has been taking Flomax. 5. He has been taking some VESIcare. 6. He has been taking tramadol and some Tylenol no. 3. 7. Short course of Cipro. 8. Longer course of Macrobid since the surgery. PHYSICAL EXAMINATION: ABDOMEN: Obese, it is soft. He has some right upper quadrant tenderness. Does not have much CVA tenderness. He has a lot of complaints just related to Etienne catheter right now. It does appear to be draining fine. My thought at this point is that based on his urinalysis here and his white count being elevated, he most likely has pyelonephritis. He has had cultures done. He has been started on some Rocephin. I have written for him to get a B and O suppository to help with some of his bladder spasm. I have recommend we stop the VESIcare as he was having difficulty emptying his bladder in the office. I am with the hope that maybe we can get this catheter out of him tomorrow. We will see what the results of the CT angio are. It looks like admitted by Dr. Morrison' service. Dr. Khanna is covering for me this weekend. I will check out with him regarding this patient. Job ID: [id number]
[2019-01-25] MEDS ORDERED: Cefepime 2 GM in Sodium Chloride 0.9% 100 ML IVPB SCH (13:00)
[2019-01-25] MEDS ORDERED: Polyethylene Glycol 3350 17 GM Packet PO SCH (13:15)
[2019-01-25] MEDS ORDERED: Tetrahydrozoline 0.05% OPTH 15 ML BOT EA EYE PRN (13:20)
[2019-01-25] MEDS: Cefepime 2 GM in Sodium Chloride 0.9% 100 ML IVPB SCH (13:25)
--- NOTE | 2019-01-25 13:50 | PRG ---
DATE OF SERVICE: 01/25/2019 SUBJECTIVE: The patient states that he is feeling much better. He has no bladder spasms. He has no bladder pain, just slight discomfort. He has poor appetite. States he has not had a bowel movement in four days. OBJECTIVE: VITAL SIGNS: Temperature 99.7, pulse 105, respirations 20, blood pressure 115/60, and saturation 93% on room air. GENERAL: No apparent distress, communicative and alert. CARDIOVASCULAR: Sinus tachycardia. Normal S1 and S2. ABDOMEN: Soft, nontender, and nondistended. Positive bowel sounds. Mild suprapubic tenderness. : Etienne catheter in place with maroon-colored urine. No clots. EXTREMITIES: No clubbing, cyanosis, or edema. LABORATORY DATA: On laboratory evaluation, the full set of labs are in the [facility], which I have reviewed. Of note, the patient's white count is 22.7 with a hemoglobin of 12.3. Creatinine is 1.18. Urine culture from January 17 is negative. Blood cultures taken yesterday are showing Pseudomonas. ASSESSMENT AND PLAN: A 68-year-old white male with Pseudomonas sepsis with elevated white count and tachycardia. I will switch his ceftriaxone to cefepime, which has better coverage of Pseudomonas. If the patient is still not improving, would recommend consulting Infectious Disease. Continue vancomycin for now until final speciation has been achieved to ensure that there were no gram-positive bacteria. I would recommend continuation of Etienne catheter at the current time, as the patient has not completely defervesced and continues to show some signs of systemic inflammatory response syndrome criteria. We will also start the patient on MiraLAX to help with a bowel movement and continue to follow. Job ID: [id number]
[2019-01-25] MEDS: metFORMIN 500 MG TAB PO SCH (15:59)
[2019-01-25] MEDS: Atorvastatin Calcium 10 MG TAB PO SCH (19:31)
[2019-01-25] MEDS: Fish Oil 1,000 MG CAP PO SCH (19:31)
[2019-01-25] MEDS: Polyethylene Glycol 3350 17 GM Packet PO SCH (19:31)
[2019-01-25] MEDS: Vancomycin HCl 1 GM in Premix Bag 1 BAG IVPB SCH (22:18)
[2019-01-26] MEDS: Cefepime 2 GM in Sodium Chloride 0.9% 100 ML IVPB SCH ×2 (01:06→13:09)
[2019-01-26] MEDS: Sodium Chloride 0.9% 1,000 ML IV SCH ×3 (06:04→22:32)
[2019-01-26 06:08] LABS: #Eosinphils 0.1 thou/uL (0.0-0.7); #Lymphocytes 0.7 thou/uL (1.20-3.40); #Monocytes 1.1 thou/uL (0.11-0.59); #Neutrophils 14.9 thou/uL (1.40-6.50); %Basophils 0.1 % (0.0-1.0); %Eosinophils 0.4 % (0.0-10.0); %Monocytes 6.4 % (0.0-10.0); %Neutrophils 89.1 % (42.0-75.0); Hemoglobin 11.3 g/dL (14.0-18.0); Mean Corpuscular HGB CONC 34.5 g/dL (32.0-36.0); Mean Corpuscular Hemoglobin 32.5 pg (27.0-31.0); Mean Corpuscular Volume 94.1 fL (78.0-98.0); Mean Platelet Volume 9.5 fL (7.4-10.4); Platelet Count 138 thou/uL (130-400); RBC Distribution Width 12.1 % (11.5-14.5); Red Blood Cell (RBC) Count 3.47 mill/uL (4.70-6.10); White Blood Cell (WBC) Count 16.7 thou/uL (4.8-10.8)
[2019-01-26 06:30] LABS: Anion Gap 11 mmol/L (10-20); BUN (Urea Nitrogen) 16 mg/dL (8.4-25.7); Calc. Creatinine Clearance 109 mL/min (70-130); Calcium 8.6 mg/dL (7.8-10.44); Carbon Dioxide 23 mmol/L (23-31); Chloride 105 mmol/L (98-107); Estimated GFR-MDRD 57; Glucose 166 mg/dL (80-115); Potassium 3.5 mmol/L (3.5-5.1); Sodium 135 mmol/L (136-145)
[2019-01-26] MEDS: Aspirin 81 mg Enteric Coated Tablet PO SCH (08:34)
[2019-01-26] MEDS: Polyethylene Glycol 3350 17 GM Packet PO SCH ×2 (08:34→20:01)
[2019-01-26] MEDS: Phenazopyridine HCl 97.5 MG TABLET PO SCH ×4 (08:34→20:01)
[2019-01-26] MEDS: metFORMIN 500 MG TAB PO SCH ×2 (08:34→15:53)
--- NOTE | 2019-01-26 14:22 | PRG ---
DATE OF SERVICE: 01/26/2019 SUBJECTIVE: The patient states he is feeling better today. He is still very lethargic and tired. Still has not had a bowel movement. Does not have any bladder spasms or bladder pain. Has a slight irritation from his catheter, but nothing terrible. OBJECTIVE: VITAL SIGNS: Temperature 98.5, pulse 83, respirations 18, blood pressure 134/79, and saturation 93% on room air. GENERAL: No apparent distress, communicating, and alert. CARDIOVASCULAR: Regular rate and rhythm. Normal S1 and S2. ABDOMEN: Soft, nontender, and nondistended. Protuberant and obese. : Etienne catheter in place with maroon translucent urine without clots. EXTREMITIES: No clubbing, cyanosis, or edema. LABORATORY DATA: Final cultures demonstrate Pseudomonas in 2/2 blood cultures and in the urine, pansensitive to Levaquin and cefepime. The patient is currently on cefepime. Full set of labs in the [facility] system, which I have reviewed. White count is down to 16.7, hemoglobin 11.3. Creatinine of 1.26. ASSESSMENT AND PLAN: A 68-year-old white male with pyelonephritis after ureteroscopy with stent in place with Pseudomonas sepsis. The patient is on correct antibiotics with cefepime. Would recommend continuation of cefepime at least for another 24 hours and the patient may then subsequently be transitioned to Levaquin p.o. I would recommend leaving the catheter in for at least one more day for proper drainage, after which point, if the patient has maybe a little less hematuria and is feeling a little better, the catheter can be removed with the patient undergoing a void trial. Dr. Stallings will be on tomorrow and can make final decisions regarding the patient's disposition. Job ID: [id number]
[2019-01-26] MEDS: Morphine 4 MG/ML VIAL SLOW IVP PRN (15:52)
[2019-01-26] MEDS: Fish Oil 1,000 MG CAP PO SCH (20:01)
[2019-01-26] MEDS: Atorvastatin Calcium 10 MG TAB PO SCH (20:01)
[2019-01-26] MEDS: Acetaminophen 325 MG TAB PO PRN (20:01)
[2019-01-26 22:19] LABS: Vancomycin, Trough 3.3 ug/mL
[2019-01-27] MEDS: Cefepime 2 GM in Sodium Chloride 0.9% 100 ML IVPB SCH ×2 (01:53→11:53)
[2019-01-27] MEDS: Sodium Chloride 0.9% 1,000 ML IV SCH ×2 (05:34→11:55)
[2019-01-27 06:19] LABS: #Eosinphils 0.4 thou/uL (0.0-0.7); #Lymphocytes 0.5 thou/uL (1.20-3.40); #Monocytes 0.8 thou/uL (0.11-0.59); #Neutrophils 8.4 thou/uL (1.40-6.50); %Basophils 0.2 % (0.0-1.0); %Eosinophils 3.8 % (0.0-10.0); %Lymphocytes 5.3 % (21.0-51.0); %Monocytes 8.3 % (0.0-10.0); %Neutrophils 82.5 % (42.0-75.0); Mean Corpuscular Hemoglobin 31.2 pg (27.0-31.0); Mean Corpuscular Volume 94.4 fL (78.0-98.0); Mean Platelet Volume 9.1 fL (7.4-10.4); Platelet Count 168 thou/uL (130-400); RBC Distribution Width 12.1 % (11.5-14.5); Red Blood Cell (RBC) Count 3.54 mill/uL (4.70-6.10); White Blood Cell (WBC) Count 10.1 thou/uL (4.8-10.8)
[2019-01-27 06:38] LABS: Anion Gap 14 mmol/L (10-20); BUN (Urea Nitrogen) 20 mg/dL (8.4-25.7); Calc. Creatinine Clearance 114 mL/min (70-130); Calcium 8.9 mg/dL (7.8-10.44); Carbon Dioxide 21 mmol/L (23-31); Chloride 107 mmol/L (98-107); Estimated GFR-MDRD 61; Glucose 138 mg/dL (80-115); Potassium 3.9 mmol/L (3.5-5.1); Sodium 138 mmol/L (136-145)
[2019-01-27] MEDS: metFORMIN 500 MG TAB PO SCH ×2 (08:23→16:07)
[2019-01-27] MEDS: Phenazopyridine HCl 97.5 MG TABLET PO SCH ×4 (08:23→20:18)
[2019-01-27] MEDS: Aspirin 81 mg Enteric Coated Tablet PO SCH (08:23)
[2019-01-27] MEDS: Polyethylene Glycol 3350 17 GM Packet PO SCH ×2 (08:24→20:18)
--- NOTE | 2019-01-27 08:40 | PRG ---
DATE OF SERVICE: 01/27/2019 This patient is seen today in room 4424 at [facility]. This patient grew out on his microbiology, a Pseudomonas species in his blood and urine, it is basically pansensitive. He was switched from Rocephin to cefepime for better Pseudomonas coverage by Dr. Contreras this weekend, although the Rocephin was likely to cover this, as it is also third generation cephalosporin. He has had some chills yesterday, but he was afebrile or low-grade temperature at most. His pulse is down now in the 70s and 80s. His O2 saturation was mid 90s on room air. His blood pressure is fine. He has had good urine output. His white count is down to 10. His hemoglobin is 11. His creatinine is 1.2. He is no longer having bladder spasms. He has not received any B and O suppository since the day that he came in. Most likely, his blood sugars have also improved. So we will go ahead on him and discontinue the vancomycin and keep him on the cefepime today. We will switch him over to some oral Cipro and in fact, we may add the Cipro today to get that on board and then hopefully, he will be feeling fine and able to be discharged tomorrow, if he is urinating okay. Job ID: [id number]
[2019-01-27] MEDS: Morphine 4 MG/ML VIAL SLOW IVP PRN ×3 (11:53→23:54)
--- NOTE | 2019-01-27 18:09 | CT ---
CT the abdomen and pelvis without IV contrast utilizing a renal calculus protocol 01/27/2019 5:21 PM INDICATION: History of renal lithotripsy COMPARISON: CT the abdomen and pelvis dated January 17, 2019 from the [facility] TECHNIQUE: Multiple CT images were obtained abdomen and pelvis without IV contrast. Axial, coronal re formatted images were constructed from the raw data. FINDINGS: This examination is limited for the evaluation of solid organs and vascular structures due to the lac k of intravenous contrast which is standard for urinary calculus assessment CT. ABDOMEN: Lung bases: Clear Liver: Fatty liver Gallbladder: Layered sludge Pancreas: Normal. Adrenal glands: Normal. Spleen: Calcified granuloma Kidneys: There is worsening kxav-yr-nuwmnngq right hydronephrosis. There is distal migration of the p reviously seen right ureteral stent with the stent now projecting distally into the base of the penis. This is seen large right UPJ stone is no longer demonstrated. There is a 4 mm nonobstructing c alculus within the right mid kidney. The left renal cystic abnormalities are stable. Retroperitoneum of the upper abdomen: No lymphadenopathy or free fluid is identified. Pelvis: Small and large bowel: Normal Bladder: Normal. Rectal and perirectal soft tissues:Normal. Reproductive structures: Normal. Free fluid in pelvis: No free fluid is evident. Lymphadenopathy pelvis: No lymphadenopathy is evident. Osseous structures: No acute osseous abnormality. No destructive osteolytic or osteoblastic lesion i s identified. There is scattered degenerative and osteoarthritic changes. IMPRESSION: 1. Interval removal of the previously seen large right UPJ stone. 2. Distal migration the right ureteral stent with the distal aspect of the ureteral stent now seen at the base of the penis. There is worsening fbyr-ye-tylhrngv right-sided hydronephrosis. 3. Right nephrolithiasis 4. Cystic abnormalities of the left kidney are unchanged. 5. Fatty liver 6. Stable gallbladder sludge. 7. Findings called to Dr. Vivar assistant coach, June, at 6:06 PM on January 27, 2019.
[2019-01-27] MEDS: Atorvastatin Calcium 10 MG TAB PO SCH (20:17)
[2019-01-27] MEDS: Ciprofloxacin 500 MG TAB PO SCH (20:18)
[2019-01-27] MEDS: Fish Oil 1,000 MG CAP PO SCH (20:18)
[2019-01-28] MEDS: Sodium Chloride 0.9% 1,000 ML IV SCH ×3 (00:01→12:41)
[2019-01-28] MEDS: Cefepime 2 GM in Sodium Chloride 0.9% 100 ML IVPB SCH ×2 (01:10→12:40)
[2019-01-28] MEDS: Ciprofloxacin 500 MG TAB PO SCH (05:14)
[2019-01-28 05:51] LABS: #Eosinphils 0.3 thou/uL (0.0-0.7); #Lymphocytes 0.6 thou/uL (1.20-3.40); #Monocytes 1.2 thou/uL (0.11-0.59); #Neutrophils 7.1 thou/uL (1.40-6.50); %Eosinophils 3.3 % (0.0-10.0); %Lymphocytes 6.4 % (21.0-51.0); %Neutrophils 77.3 % (42.0-75.0); Hemoglobin 10.7 g/dL (14.0-18.0); Mean Corpuscular HGB CONC 33.6 g/dL (32.0-36.0); Mean Corpuscular Hemoglobin 31.4 pg (27.0-31.0); Mean Corpuscular Volume 93.7 fL (78.0-98.0); Mean Platelet Volume 8.5 fL (7.4-10.4); Platelet Count 201 thou/uL (130-400); RBC Distribution Width 12.2 % (11.5-14.5); Red Blood Cell (RBC) Count 3.41 mill/uL (4.70-6.10); White Blood Cell (WBC) Count 9.2 thou/uL (4.8-10.8)
--- NOTE | 2019-01-28 08:00 | PRG ---
DATE OF SERVICE: 01/28/2019 Last night, we did a noncontrast CAT scan to see if he had much stone burden left, he has a very small 4 mm actually looks like it is probably less than 4 mm stone in the mid to lower pole calyceal region. He had no evidence of ureteral stone. The stent had migrated down into the base of the penis. When we took his Etienne out yesterday that explained why he is having some of the dribbling with urination. Stent was removed completely. He has voided fine through the night. He is not having flank pain, nausea, or vomiting. He still has not had a bowel movement and this is bothersome to him. He is on some MiraLAX. I have asked him to talk with Dr. Morrison's group about that. His vital signs have been stable. He has not been hypotensive or tachycardic. He has a good O2 saturations and he has not been febrile. He has had no chills. He has no shortness of breath or chest pain. His abdomen is soft and nontender. His flanks are nontender. His calves are nontender. He is on Cipro orally and cefepime IV. I think he could go home today. I am going to leave this up to Dr. Morrison. He was quite ill. He was septic with a Pseudomonas infection and he is certainly doing much better in that regard on appropriate antibiotics. However, he still is having some issues with his bowels, so I do not know if it is something that would be better addressed here in the hospital if he needs something more to help with that. He did receive some morphine yesterday. I have recommended, they stop the morphine today. For the time being, we will keep him on the oral Cipro and IV cefepime and we will leave his disposition up to Dr. Morrison in regard to going home. I did leave a prescription for the Cipro in the front of his chart, he will be on it for 2 weeks. Job ID: [id number]
[2019-01-28] MEDS: Phenazopyridine HCl 97.5 MG TABLET PO SCH ×3 (08:16→18:20)
[2019-01-28] MEDS: Polyethylene Glycol 3350 17 GM Packet PO SCH (08:16)
[2019-01-28] MEDS: Aspirin 81 mg Enteric Coated Tablet PO SCH (08:16)
[2019-01-28] MEDS: metFORMIN 500 MG TAB PO SCH ×2 (08:16→18:19)
[2019-01-28] MEDS ORDERED: Milk Of Magnesia 30 ML UDCUP PO PRN (08:53)
[2019-01-28] MEDS ORDERED: Milk Of Magnesia 30 ML UDCUP PO SCH (09:00)
[2019-01-28 17:07] VITALS: TEMP 98.3
[2019-01-28 19:14] VITALS: BP 162/79
--- NOTE | 2019-01-30 08:44 | PQF ---
[employer] Nurse Crystal Reports Winform ViewerCECELIA BREWSTER JR IDANIA VELASQUEZ MD [id number] [facility] [id number] CLINICAL DOCUMENTATION CLARIFICATION FORM: POST DISCHARGE Addendum to original discharge summary date: ____ Late entry note date: __ DATE: 01/30/2019 ATTN: IDANIA VELASQUEZ MD Please exercise your independent, professional judgment in responding to the clarification form. Clinical indicators are provided on the bottom of this form for your review Please check appropriate box(es): [ ] Sepsis due to Romero catheter assiciated infection [ ] Sepsis due not to Romero catheter assiciated infection [ ] Other diagnosis [ x ] Unable to determine In addition, please specify: Present on Admission (POA): [ x ] Yes [ ] No [ ] Unable to determine For continuity of documentation, please document condition throughout progress notes and discharge summary. Thank You. CLINICAL INDICATORS - SIGNS / SYMPTOMS / LABS Pulse [id number] -Documented in ED physician record on 01/25 by DO Goode Mathew Fever - Documernted in H&P on 01/24 by Prince Johnson MD WBC 21.3 - Documernted in H&P on 01/24 by Prince Jhonson MD Peudomonos Sepsis - Documernted in Progress notes on 01/25 by Ben Birmingham MD Romero in place - Documernted in H&P on 01/24 by Prince Johnson MD He has lot of compliants just related to romero catheter right now- Documernted in Consult note on 01/24 by Chandrakant Roque MD Pseudomonos species in his blood and urine - Documented in Progress Notes on by Cahndrakant Roque MD [employer] Likely has pyelonephritis - Documernted in Consult note on 01/24 by Chandrakant Roque MD TREATMENTS: plan will be to continue IV antibiotics serially re evaluate - Documernted in H &P on 01/24 by Prince Johnson MD He has been started on recephin - Documernted in Consult note on 01/24 by Chandrakant Roque MD i will switch his ceftrixaone one to cefepime - Documernted in Progress notes on 01/25 by Ben Birmingham MD (This form is maintained as a part of the permanent medical record) [employer] Nurse [id number]. All Rights Reserved [email or web address] [not provided] MTDD
== END 2019-01-28 19:14 | disposition home or self-care (01) | DRG 872 ==
LOC: ERS 16:05 → 2SW 20:33 → OBSVTOIN 01-25 21:04 → T4-B 01-25 22:05
PROVIDERS: ADMIT Specialist; ATTEND Specialist
DX: A41.52 Sepsis due to Pseudomonas (principal); N12 Tubulo-interstitial nephritis, not specified as acute or chronic; A41.9 Sepsis, unspecified organism; E78.5 Hyperlipidemia, unspecified; E11.9 Type 2 diabetes mellitus without complications; E66.01 Morbid (severe) obesity due to excess calories; M19.91 Primary osteoarthritis, unspecified site; N20.0 Calculus of kidney; Z98.890 Other specified postprocedural states; Z87.891 Personal history of nicotine dependence
CPT/HCPCS: 36415; 36416; 71275; 74018; 74176; 80048; 80053; 80202; 81003; 81015; 83605; 85025; 85379; 87040; 87077; 87086; 87149; 87186; 96365; 96375; J0692; J0696; J2270; J2405; J3370; J3490; J7050; Q9966

== ENCOUNTER 2020-06-20 11:43 | Inpatient (IN) | payer MEDICARE ==
[2020-06-20] MEDS ORDERED: Succinylcholine 200 MG/10 ml SYRINGE FS ONE (12:11)
[2020-06-20] MEDS ORDERED: PROPOFOL 200 MG/20 ML VIAL ONE (12:11)
[2020-06-20 12:33] LABS: #Basophils 0.1 thou/uL (0.0-0.2); #Lymphocytes 0.4 thou/uL (1.20-3.40); #Neutrophils 15.8 thou/uL (1.40-6.50); %Basophils 0.5 % (0.0-1.0); %Lymphocytes 2.3 % (21.0-51.0); %Monocytes 5.8 % (0.0-10.0); %Neutrophils 91.4 % (42.0-75.0); Hemoglobin 14.9 g/dL (14.0-18.0); Mean Corpuscular HGB CONC 32.8 g/dL (32.0-36.0); Mean Corpuscular Hemoglobin 29.9 pg (27.0-31.0); Mean Corpuscular Volume 91.3 fL (78.0-98.0); Mean Platelet Volume 8.8 fL (7.4-10.4); Platelet Count 295 thou/uL (130-400); RBC Distribution Width 12.5 % (11.5-14.5); Red Blood Cell (RBC) Count 4.98 mill/uL (4.70-6.10); White Blood Cell (WBC) Count 17.3 thou/uL (4.8-10.8)
[2020-06-20] MEDS ORDERED: Dexamethasone 10 MG/ML VIAL ONE (12:44)
[2020-06-20] MEDS ORDERED: Azithromycin 500 MG VIAL ONE (12:44)
[2020-06-20] MEDS ORDERED: cefTRIAXone\\ROCEPHIN 2 GM VIAL ONE (12:44)
[2020-06-20 13:08] LABS: ALT (SGPT) 25 U/L (8-55); AST (SGOT) 31 U/L (5-34); Albumin 3.7 g/dL (3.4-4.8); Alkaline Phosphatase 68 U/L (40-110); Anion Gap 18 mmol/L (10-20); BUN (Urea Nitrogen) 42 mg/dL (8.4-25.7); Bilirubin, Total 0.4 mg/dL (0.2-1.2); Calc. Creatinine Clearance 0 mL/min (70-130); Calcium 10.1 mg/dL (7.8-10.44); Carbon Dioxide 20 mmol/L (23-31); Chloride 99 mmol/L (98-107); Globulin 4.5 g/dL (2.4-3.5); Glucose 214 mg/dL (80-115); Potassium 3.9 mmol/L (3.5-5.1); Protein, Total 8.2 g/dL (5.8-8.1); Sodium 133 mmol/L (136-145)
--- NOTE | 2020-06-20 13:15 | RAD ---
PORTABLE CHEST: Date: 06/20/2020 HISTORY: COVID symptoms. No comparison. FINDINGS: Mild cardiomegaly and mild vascular engorgement. There are interstitial and hazy alveolar infiltrates in the right perihilar region. Interstitial prom inence in the left lung is also noted. No significant effusion. IMPRESSION: Evidence of interstitial and hazy alveolar infiltrates, more pronounced in the right perihilar region suggesting COVID pneumonia. POS: AGW
[2020-06-20 14:22] LABS: SARS-CoV-2 NAA Rapid Test DETECTED (NotDetected)
[2020-06-20 15:31] LABS: Bilirubin Negative (Negative); Blood, Urine 3+ (Negative); Clarity Turbid (Clear); Glucose, Urine (Dipstick) 150 mg/dL (Negative); Ketone, Urine Trace mg/dL (Negative); Leukocyte Negative Leu/uL (Negative); Nitrite Negative (Negative); Protein, Urine (Dipstick) 200 mg/dL (Neg-Trace); RBC/HPF Greater than 50 HPF (0-3); Specific Gravity, Urine 1.022 (1.002-1.036); Squamous Epithelial 0-3 HPF (0-3); Urobilinogen Normal mg/dL (Less than 2); pH, Urine 5.5 (5.0-9.0)
[2020-06-20 15:39] LABS: Bacteria/HPF None Seen HPF (None Seen)
[2020-06-20 15:43] LABS: Lactic Acid 2.1 mmol/L (0.5-2.2)
--- NOTE | 2020-06-20 16:51 | HP ---
CHIEF COMPLAINT ON ADMISSION: COVID pneumonia. HISTORY OF PRESENT ILLNESS: The patient is a 70-year-old male, who 1 week prior to coming to [facility] ER began to feel bad. Two days prior to admission, he went to a local outpatient ER Clinic in [place], where he was COVID tested. He had to call to get his results, which he was told was positive. His 's is still pending. He came into [facility] due to increasing shortness of breath. In the emergency room, his O2 saturation was noted to be in the high 80s, and with high-flow oxygen, they were able to get him into the 90s. Heart rate also during evaluation went up to as high as 110 on arrival. This also has responded to O2 supplementation. He denies nausea or vomiting, but he has been completely anorexic for 5 days, unable to eat. He states he was exposed to COVID 2 weeks prior to arrival. His fever at home has been up to 102. He has had body aches associated with shortness of breath and a worsening cough. Once his COVID status was confirmed, Rocephin, Zithromax, and Decadron were given. Dr. Morrison was contacted. Chest x-ray confirms illness with hazy alveolar infiltrates pronounced in the right perihilar region. Dr. Morrison was contacted for further admission and care. PAST MEDICAL HISTORY: Significant for type 2 diabetes, dyslipidemia. He is also noninsulin dependent. Morbid obesity, osteoarthritis, torn right rotator cuff, frequent kidney stones. PAST SURGICAL HISTORY: Includes shoulder surgery in 2003 and urinary tract surgery. SOCIAL HISTORY: He is . Previous smoker, quit less than 10 years ago. Denies drug or alcohol use. He is currently retired. ALLERGIES: HE HAS NO KNOWN DRUG ALLERGIES. MEDICATIONS ON ADMISSION: Include; 1. Simvastatin 20 mg q.a.m. 2. 81 mg aspirin daily. 3. Metformin 1000 mg b.i.d. 4. MiraLAX daily. 5. Vitamin D daily. REVIEW OF SYSTEMS: CONSTITUTIONAL: Significant for general fatigue and malaise and cough, generalized weakness. HEENT: Denies eyes, ears, nose, or throat drainage or sores. CHEST: Admits to coughing and shortness of breath. CARDIOVASCULAR: Denies palpitations or chest pain. GI: Denies nausea, vomiting, or diarrhea, but admits to severe anorexia. : Denies blood in urine or stool or painful urination. MUSCULOSKELETAL: Has diffuse aches and pains, particularly in the right shoulder, which has a torn rotator cuff. SKIN: No new rashes or lesions. Hot and dry to touch. NEUROLOGIC: Has headaches, but denies trouble with mentation, blurred vision. PHYSICAL EXAMINATION: At the time of admission; VITAL SIGNS: Blood pressure 101/57 with a pulse of 110. Respirations 23, getting up to 42. O2 saturation on arrival in the ER was 94 on high-flow O2, he arrived in the 80s. GENERAL: This is a morbidly obese male, alert, oriented, cooperative. HEENT: Normocephalic and atraumatic. Pupils are equal, round, and reactive to light. Extraocular muscles are intact. TMs and nares clear. Pharynx is dry. NECK: Supple. Trachea midline. CHEST: With faint basilar rales on the right. HEART: Regular rate and rhythm, tachycardic. ABDOMEN: Obese. Unable to appreciate organomegaly. : Deferred. EXTREMITIES: Without clubbing, cyanosis, or edema. Normal range of motion present. SKIN: Hot, dry, somewhat pink and red, but no acute rashes or lesions. NEUROLOGIC: Cranial nerves are intact. Gait and cerebellar function untested. Sensory is intact. Mental status is at baseline and clear. LABORATORY DATA: Lab thus far shows WBCs 17,300, hemoglobin 14.9, hematocrit 45.5, with a distinct left shift. Sodium 133, potassium 3.9, chloride 99, CO2 is 20, BUN 42, creatinine 1.65 with a GFR of 42, glucose 214. Liver functions unremarkable. D-dimer not done. Flu screen A and B are negative. SARS positive. Chest x-ray shows alveolar infiltrates. ASSESSMENT: 1. COVID pneumonia with hypoxia. 2. Xgl-xrztqmt-wfwtgnvcb diabetes. 3. Morbid obesity. 4. Torn rotator cuff. PLAN: He will be admitted to a medical bed. High-flow oxygen will be maintained. We will attempt to get him some remdesivir and convalescent plasma. We will continue IV fluids and serially re-evaluate him. We will use antipyretics for aches and pains and fever control. We will serially re-evaluate him. 60 min spent admitting pt, 45 min face to face. Job ID: [id number] [facility]
[2020-06-20] MEDS ORDERED: Zinc Sulfate 220 MG CAP PO SCH (17:00)
[2020-06-20] MEDS ORDERED: HYDROcodone/Acetaminophen 5/325 mg Tablet PO PRN (17:42)
[2020-06-20] MEDS ORDERED: Dextrose 5% in Water 1,000 ML IV PRN (17:45)
[2020-06-20] MEDS ORDERED: REMDESIVIR (EUA) 200 MG in Sodium Chloride 0.9% 250 ML 210 ML IV SCH (18:45)
[2020-06-20] MEDS: Atorvastatin Calcium 10 MG TAB PO SCH (20:46)
[2020-06-20] MEDS: Heparin 5,000 UNITS/ML VIAL SC SCH (20:47)
[2020-06-20] MEDS: Lorazepam 2 MG/ML VIAL SLOW IVP PRN (20:47)
[2020-06-20] MEDS: Acetaminophen 500 MG TAB PO SCH (20:47)
[2020-06-20] MEDS: Dextrose 5 %-0.45 % NaCl 1,000 ML IV SCH (21:03)
[2020-06-21] MEDS: Dextrose 5 %-0.45 % NaCl 1,000 ML IV SCH ×4 (04:33→13:07)
[2020-06-21 05:28] LABS: Band 24 % (5-11); Hemoglobin 14.7 g/dL (14.0-18.0); Lymphocytes 2 % (21-51); MDiff Complete? YES; Mean Corpuscular HGB CONC 33.5 g/dL (32.0-36.0); Mean Corpuscular Hemoglobin 30.9 pg (27.0-31.0); Mean Corpuscular Volume 92.3 fL (78.0-98.0); Mean Platelet Volume 8.7 fL (7.4-10.4); Neutrophil 73 % (42-75); Platelet Count 325 thou/uL (130-400); Platelet Morphology Comment Appears Adequate; RBC Distribution Width 12.6 % (11.5-14.5); RBC Morphology Normal; Reactive Lymphocytes 1 % (0-10); Red Blood Cell (RBC) Count 4.75 mill/uL (4.70-6.10); White Blood Cell (WBC) Count 19.8 thou/uL (4.8-10.8)
[2020-06-21 05:33] LABS: Anion Gap 17 mmol/L (10-20); BUN (Urea Nitrogen) 41 mg/dL (8.4-25.7); Calc. Creatinine Clearance 86 mL/min (70-130); Calcium 9.5 mg/dL (7.8-10.44); Carbon Dioxide 19 mmol/L (23-31); Cardiac Risk 6.3 (Less than 4.5); Chloride 105 mmol/L (98-107); Cholesterol 132 mg/dl (< 200 Desired); Glucose 224 mg/dL (80-115); HDL Cholesterol 21 mg/dL (>60 Neg Risk); LDL Cholesterol, Calculated 72 mg/dL; Potassium 3.9 mmol/L (3.5-5.1); Sodium 137 mmol/L (136-145); Triglycerides 195 mg/dL (Less than 150)
[2020-06-21] MEDS: Insulin Regular 300 UNITS/3 ML VIAL SC PRN ×3 (06:45→21:30)
--- NOTE | 2020-06-21 09:01 | CON ---
DATE OF CONSULTATION: 06/21/2020 REASON FOR CONSULTATION: COVID-19 pneumonia and acute hypoxic respiratory failure. CONSULTING PHYSICIAN: Thom Morrison MD HISTORY OF PRESENT ILLNESS: The patient is a 70-year-old male with comorbid conditions including diabetes and obesity. He became ill with COVID-19 pneumonia about 8 days ago. He has been at home with intermittent low-grade fever. Came in last night with increasing shortness of breath and is now on BiPAP. PAST MEDICAL HISTORY: 1. Diabetes mellitus type 2. 2. Hyperlipidemia. 3. Obesity. 4. Nephrolithiasis. PAST SURGICAL HISTORY: Shoulder surgery and urinary tract surgery. SOCIAL HISTORY: Quit smoking 10 years ago. Does not consume alcohol. He is retired. ALLERGIES: NONE. MEDICATIONS: Prior to admission: 1. Simvastatin. 2. Aspirin. 3. Metformin. 4. MiraLAX. 5. Vitamin D. REVIEW OF SYSTEMS: Remarkable for fatigue, cough, shoulder pain. Otherwise negative. PHYSICAL EXAMINATION: VITAL SIGNS: Temperature 97.8, pulse 94, blood pressure 159/94, O2 saturation 96% on BiPAP, breathing about 35 L/minute with FiO2 of 50%. HEENT: Unremarkable. NECK: No adenopathy or JVD. LUNGS: Inspiratory crackles bilaterally. CARDIAC: S1, S2. Regular. ABDOMEN: Soft and nontender to palpation. EXTREMITIES: No clubbing, cyanosis, or edema. LABORATORY DATA: Sodium 137, potassium 3.9, chloride 105, CO2 of 19, BUN 41, creatinine 1.5, glucose 224, calcium 9.5. White blood cell count 19.8, hematocrit 43.9, and platelet count 325. D-dimer 1.43. COVID test positive. Urinalysis shows glucosuria and proteinuria. X-ray shows bilateral infiltrates. ASSESSMENT: Severe COVID-19 pneumonia with multiple comorbidities including diabetes, acute renal failure, and morbid obesity. RECOMMENDATIONS: 1. He is currently on remdesivir, azithromycin, and ceftriaxone. It is unclear if any of these interventions will be of much help to the patient. 2. Agree with the anticoagulation and steroids. 3. Would add Accu-Cheks and sliding scale insulin. 4. The patient is set to receive convalescent plasma later today. 5. The patient is highly likely to progress to intubation and mechanical ventilation. We will monitor closely. Job ID: [id number]
[2020-06-21] MEDS: Heparin 5,000 UNITS/ML VIAL SC SCH ×2 (09:16→20:17)
[2020-06-21] MEDS: Aspirin Chewable 81 MG TAB PO SCH (09:17)
[2020-06-21] MEDS: Zinc Sulfate 220 MG CAP PO SCH (09:17)
[2020-06-21] MEDS: Acetaminophen 500 MG TAB PO SCH ×4 (09:17→20:16)
[2020-06-21] MEDS: Dexamethasone 4 mg/ml Vial SLOW IVP SCH (09:18)
--- NOTE | 2020-06-21 09:39 | RAD ---
PORTABLE CHEST: Date: 06/21/2020 PROVIDED CLINICAL HISTORY: COVID pneumonia. FINDINGS: Comparison with 06/20/2020. There is interval increase in conspicuity of air space disease at the right lower lung zone. Addition al significant interval change with respect to the prior examination is not apparent. IMPRESSION: As above. POS: ARABELLA
[2020-06-21] MEDS: cefTRIAXone\\ROCEPHIN 1 GM in Sodium Chloride 0.9% 100 ML IVPB SCH (13:05)
[2020-06-21] MEDS: Azithromycin 500 MG in Sodium Chloride 0.9% 250 ML 250 ML IVPB SCH (13:06)
--- NOTE | 2020-06-21 17:44 | PQF ---
CLINICAL DOCUMENTATION CLARIFICATION FORM: Dear Date: 06/21/2020 1730 Please exercise your independent, professional judgment in responding to the clarification form. Clinical indicators are provided on the bottom of this form for your review. Please check appropriate box(es): [ x ] Acute Respiratory Failure: [ x ] with Hypoxia [ ] with Hypercapnia [ ] Acute On Chronic Respiratory Failure: [ ] with Hypoxia [ ] with Hypercapnia [ ] Acute Respiratory Failure due to: (etiology) [ ] ARDS (Acute Respiratory Distress Syndrome) [ ] Chronic Respiratory Failure only [ ] with Hypoxia [ ] with Hypercapnia [ ] Respiratory Insufficiency [ ] Hypoxia [ x ] Other diagnosis __Covid 19 [ ] Unable to determine In addition, please specify: Present on Admission (POA): [ x ] Yes [ ] No [ ] Unable to determine For continuity of documentation, please document condition throughout progress notes and discharge summary. Thank You. To be completed by CDI/Coding staff for physician review: CLINICAL INDICATORS - SIGNS / SYMPTOMS / LABS / RESULTS AND LOCATION IN MR Resp 42, pulse 110, 72% RA, > 87% nonrebreather > 91% high flow, reports to ED for difficulty breathing, reports symptoms started 10 days ago, Final Dx Covid, hypoxia, Pneumonia ( ED Report) 06/20 He became ill with Covid 19 Pneumonia about 8 days ago, He has been at home with intermittent low grade fever. Came in last night with increasing shortness of breath and is now on bipap. ([facility]) 06/20 RISK FACTORS / RESULTS AND LOCATION IN MR Severe Covid-19 Pneumonia with multiple comorbidities including diabetes, acute renal failure and morbid obesity (H&P/ [facility]) 06/20 TREATMENTS / RESULTS AND LOCATION IN MR Pulmonology consult ( [facility]/ 06/21) Supplemental oxygen ( 06/20 present) Acute Respiratory Failure: ABG pH < 7.35 or > 7.45; Decreased oxygen saturation (<90% room air or < 95% on oxygen); PCO2 > 50 mm Hg; PO2 < 60 mm Hg; Labored or rapid respirations ARDS: Dx Criteria [[place] ARDS]: Respiratory symptoms within one week of a known clinical insult (e.g. shock, infection, surgery, trauma) Bilateral opacities in CXR/Chest CT not due to CHF or fluid Thank you! CDS Signature: Taylor Morejon RN Phone #: [phone] Date: 06/21/2020 This is a permanent part of the Medical Record [facility]
[2020-06-21] MEDS: REMDESIVIR (EUA) 100 MG in Sodium Chloride 0.9% 250 ML 230 ML IV SCH (20:15)
[2020-06-21] MEDS: Atorvastatin Calcium 10 MG TAB PO SCH (20:17)
[2020-06-21] MEDS ORDERED: FLU VACC QS2020-21(65YR UP)/PF 240 MCG/0.7 ML SYRINGE IM ONE (21:00)
[2020-06-22 03:46] LABS: #Eosinphils 0.1 thou/uL (0.0-0.7); #Lymphocytes 0.7 thou/uL (1.20-3.40); #Neutrophils 11.3 thou/uL (1.40-6.50); %Eosinophils 0.4 % (0.0-10.0); %Lymphocytes 5.2 % (21.0-51.0); %Monocytes 7.3 % (0.0-10.0); %Neutrophils 87.2 % (42.0-75.0); Mean Corpuscular HGB CONC 32.8 g/dL (32.0-36.0); Mean Corpuscular Hemoglobin 31.3 pg (27.0-31.0); Mean Corpuscular Volume 95.3 fL (78.0-98.0); Mean Platelet Volume 9.3 fL (7.4-10.4); Platelet Count 238 thou/uL (130-400); RBC Distribution Width 12.7 % (11.5-14.5); Red Blood Cell (RBC) Count 4.47 mill/uL (4.70-6.10)
[2020-06-22 03:59] LABS: Anion Gap 15 mmol/L (10-20); BUN (Urea Nitrogen) 48 mg/dL (8.4-25.7); Calc. Creatinine Clearance 81 mL/min (70-130); Calcium 9.2 mg/dL (7.8-10.44); Carbon Dioxide 14 mmol/L (23-31); Chloride 109 mmol/L (98-107); Glucose 176 mg/dL (80-115); Potassium 4.3 mmol/L (3.5-5.1); Sodium 134 mmol/L (136-145)
[2020-06-22] MEDS: Insulin Regular 300 UNITS/3 ML VIAL SC PRN ×4 (05:15→22:26)
[2020-06-22] MEDS: Dextrose 5 %-0.45 % NaCl 1,000 ML IV SCH (05:15)
--- NOTE | 2020-06-22 07:56 | RAD ---
RADIOGRAPH CHEST 1 VIEW: DATE: 06/22/2020 TIME: 4:31 AM HISTORY: 70 year old male. Follow-up pneumonia. COMPARISON: 06/21/2020 FINDINGS: Inspiration is deeper on the current study compared to the prior. The previously demonstrated prominent alveolar infiltrate occupying the right mid and lower lung zone s, has either completely or almost completely resolved. Increased attenuation in the retrocardiac left lower lobe has apparently improved. No pneumothorax or pulmonary edema. Lateral costophrenic angles are sharp. IMPRESSION: Dramatic interval improvement or resolution of the airspace disease in the right lung.
--- NOTE | 2020-06-22 08:57 | PRG ---
DATE OF SERVICE: 06/22/2020 SUBJECTIVE: The patient remains on noninvasive ventilation. He actually looks much better today and is in much better spirits. OBJECTIVE: VITAL SIGNS: Temperature 96.7, pulse 74, blood pressure 171/90, and O2 saturation 100%. 24-hour intake 2271, output 1271. HEENT: Unremarkable. NECK: No JVD. LUNGS: Clear anteriorly. CARDIAC: S1, S2. Regular. ABDOMEN: Soft. EXTREMITIES: No edema. LABORATORY DATA: Sodium 134, potassium 4.3, chloride 109, CO2 of 14, BUN 48, creatinine 1.6, glucose 176. White blood cell count 13, hematocrit 42, and platelet count 238. ASSESSMENT: 1. COVID-19 pneumonia with slightly improved x-ray. 2. Acute respiratory failure requiring noninvasive mechanical ventilation. PLAN: His metabolic acidosis is somewhat concerning and based on that, I will go ahead and change his IV fluids add some serum bicarbonate. His labs will be repeated tomorrow. We are continuing the dexamethasone, remdesivir, and anticoagulation. Job ID: [id number]
[2020-06-22] MEDS: Zinc Sulfate 220 MG CAP PO SCH (09:50)
[2020-06-22] MEDS: Aspirin Chewable 81 MG TAB PO SCH (09:50)
[2020-06-22] MEDS: Acetaminophen 500 MG TAB PO SCH ×4 (09:50→20:10)
[2020-06-22] MEDS: Dexamethasone 4 mg/ml Vial SLOW IVP SCH (09:51)
[2020-06-22] MEDS: Sodium Bicarbonate 70 MEQ in Dextrose 5% in Water 1,000 ML IV SCH (09:53)
[2020-06-22] MEDS: Heparin 5,000 UNITS/ML VIAL SC SCH ×2 (09:54→20:09)
[2020-06-22] MEDS: cefTRIAXone\\ROCEPHIN 1 GM in Sodium Chloride 0.9% 100 ML IVPB SCH (12:17)
[2020-06-22] MEDS: Azithromycin 500 MG in Sodium Chloride 0.9% 250 ML 250 ML IVPB SCH (14:19)
[2020-06-22] MEDS: Atorvastatin Calcium 10 MG TAB PO SCH (20:10)
[2020-06-22] MEDS: REMDESIVIR (EUA) 100 MG in Sodium Chloride 0.9% 250 ML 230 ML IV SCH (21:07)
[2020-06-23] MEDS: Sodium Bicarbonate 70 MEQ in Dextrose 5% in Water 1,000 ML IV SCH (05:22)
[2020-06-23 05:42] LABS: Anion Gap 13 mmol/L (10-20); BUN (Urea Nitrogen) 43 mg/dL (8.4-25.7); Calc. Creatinine Clearance 79 mL/min (70-130); Calcium 9.2 mg/dL (7.8-10.44); Carbon Dioxide 25 mmol/L (23-31); Chloride 105 mmol/L (98-107); Glucose 168 mg/dL (80-115); Potassium 3.9 mmol/L (3.5-5.1); Sodium 139 mmol/L (136-145)
[2020-06-23 05:42] LABS: #Lymphocytes 0.7 thou/uL (1.20-3.40); #Monocytes 0.8 thou/uL (0.11-0.59); #Neutrophils 10.2 thou/uL (1.40-6.50); %Eosinophils 0.3 % (0.0-10.0); %Lymphocytes 5.6 % (21.0-51.0); %Monocytes 7.1 % (0.0-10.0); %Neutrophils 87.1 % (42.0-75.0); Hemoglobin 13.8 g/dL (14.0-18.0); Mean Corpuscular HGB CONC 33.6 g/dL (32.0-36.0); Mean Corpuscular Hemoglobin 31.2 pg (27.0-31.0); Mean Corpuscular Volume 92.7 fL (78.0-98.0); RBC Distribution Width 12.6 % (11.5-14.5); Red Blood Cell (RBC) Count 4.41 mill/uL (4.70-6.10); White Blood Cell (WBC) Count 11.7 thou/uL (4.8-10.8)
[2020-06-23 06:32] LABS: Platelet Count 380 thou/uL (130-400)
--- NOTE | 2020-06-23 08:02 | RAD ---
XR Chest 1 View Portable History: Pneumonia Comparison: Radiograph prior day Findings: Heart size is enlarged. Mild lung hyperinflation. No confluent airspace consolidation, pneu mothorax or effusion. No acute osseous abnormality. Impression: Mild cardiomegaly. No acute intrathoracic abnormality.
--- NOTE | 2020-06-23 08:36 | PRG ---
DATE OF SERVICE: 06/23/2020 SUBJECTIVE: He is doing well, has no acute complaints. He continues on the BiPAP. OBJECTIVE: VITAL SIGNS: Temperature 96.7, pulse 75, blood pressure 160/81, O2 saturation 92%. 24-hour intake 2721, output 2480. HEENT: Unremarkable. NECK: No adenopathy or JVD. LUNGS: Clear anteriorly. CARDIAC: S1, S2. Regular. ABDOMEN: Soft. EXTREMITIES: No edema. LABORATORY DATA AND IMAGING STUDIES: His chest x-ray is clearing. White blood cell count 11.7, hematocrit 40, and platelet count 380. Sodium 139, potassium 3.9, chloride 105, CO2 of 25, BUN 43, creatinine 1.6, and glucose 168. ASSESSMENT: 1. COVID-19 pneumonia. 2. Acute hypoxic respiratory failure, requiring BiPAP. PLAN: 1. Continue general supportive care with the remdesivir, anticoagulation, dexamethasone. 2. Stop the bicarbonate drip as his acidosis has corrected. Job ID: [id number]
[2020-06-23] MEDS: Dexamethasone 4 mg/ml Vial SLOW IVP SCH (08:48)
[2020-06-23] MEDS: Terazosin HCl 5 MG CAP PO SCH (08:48)
[2020-06-23] MEDS: Acetaminophen 500 MG TAB PO SCH ×4 (08:48→20:50)
[2020-06-23] MEDS: Aspirin Chewable 81 MG TAB PO SCH (08:48)
[2020-06-23] MEDS: Zinc Sulfate 220 MG CAP PO SCH (08:48)
[2020-06-23] MEDS: Heparin 5,000 UNITS/ML VIAL SC SCH ×2 (08:51→20:49)
[2020-06-23] MEDS: Insulin Regular 300 UNITS/3 ML VIAL SC PRN ×3 (11:53→21:29)
[2020-06-23] MEDS: cefTRIAXone\\ROCEPHIN 1 GM in Sodium Chloride 0.9% 100 ML IVPB SCH (11:53)
[2020-06-23] MEDS: Azithromycin 500 MG in Sodium Chloride 0.9% 250 ML 250 ML IVPB SCH (13:02)
[2020-06-23] MEDS: Melatonin 3 MG TAB PO SCH (20:49)
[2020-06-23] MEDS: Atorvastatin Calcium 10 MG TAB PO SCH (20:50)
[2020-06-23] MEDS: REMDESIVIR (EUA) 100 MG in Sodium Chloride 0.9% 250 ML 230 ML IV SCH (21:59)
[2020-06-24] MEDS: Lorazepam 2 MG/ML VIAL SLOW IVP PRN (02:20)
[2020-06-24 04:43] LABS: #Eosinphils 0.1 thou/uL (0.0-0.7); #Monocytes 0.7 thou/uL (0.11-0.59); #Neutrophils 10.4 thou/uL (1.40-6.50); %Basophils 0.1 % (0.0-1.0); %Eosinophils 0.9 % (0.0-10.0); %Lymphocytes 7.8 % (21.0-51.0); %Monocytes 5.5 % (0.0-10.0); %Neutrophils 85.6 % (42.0-75.0); Hemoglobin 13.1 g/dL (14.0-18.0); Mean Corpuscular Hemoglobin 31.4 pg (27.0-31.0); Mean Corpuscular Volume 92.4 fL (78.0-98.0); Mean Platelet Volume 7.8 fL (7.4-10.4); Platelet Count 379 thou/uL (130-400); RBC Distribution Width 12.7 % (11.5-14.5); Red Blood Cell (RBC) Count 4.19 mill/uL (4.70-6.10); White Blood Cell (WBC) Count 12.2 thou/uL (4.8-10.8)
[2020-06-24 05:06] LABS: Anion Gap 13 mmol/L (10-20); BUN (Urea Nitrogen) 39 mg/dL (8.4-25.7); Calc. Creatinine Clearance 105 mL/min (70-130); Calcium 9.2 mg/dL (7.8-10.44); Carbon Dioxide 24 mmol/L (23-31); Chloride 106 mmol/L (98-107); Glucose 136 mg/dL (80-115); Potassium 3.7 mmol/L (3.5-5.1); Sodium 139 mmol/L (136-145)
--- NOTE | 2020-06-24 08:38 | RAD ---
EXAM: Single view of the chest HISTORY: Pneumonia COMPARISON: 06/23/2020 FINDINGS: Single view of the chest shows an enlarged but stable cardiomediastinal silhouette. Bilate ral pulmonary vascular enlargement is seen. A calcified granuloma projects over the left lung base. No pleural effusion or consolidation are seen. Degenerative changes are seen in the spine. IMPRESSION: Stable cardiomegaly
--- NOTE | 2020-06-24 08:43 | PRG ---
DATE OF SERVICE: 06/24/2020 SUBJECTIVE: Patient is a doing about the same. OBJECTIVE: VITAL SIGNS: Temperature 97.3, pulse 81, blood pressure 145/75, O2 saturation in the high 80s to low 90s. HEENT: Unremarkable. NECK: No JVD. LUNGS: Fairly clear. CARDIAC: S1, S2. Regular. ABDOMEN: Soft. EXTREMITIES: No edema. LABORATORY DATA: White count 12, hematocrit 38.7, and platelet count 379. Sodium 139, potassium 3.7, chloride 106, CO2 of 24, BUN 39, creatinine 1.2, and glucose 136. ASSESSMENT: 1. COVID-19 pneumonia. 2. Acute hypoxic respiratory failure requiring mechanical ventilation with BiPAP. PLAN: Remdesivir should be done today. We will try to use high-flow while he is eating. He will continue steroids. Job ID: [id number]
[2020-06-24] MEDS: Zinc Sulfate 220 MG CAP PO SCH (11:20)
[2020-06-24] MEDS: Aspirin Chewable 81 MG TAB PO SCH (11:20)
[2020-06-24] MEDS: Heparin 5,000 UNITS/ML VIAL SC SCH ×2 (11:20→20:45)
[2020-06-24] MEDS: Dexamethasone 4 mg/ml Vial SLOW IVP SCH (11:20)
[2020-06-24] MEDS: Acetaminophen 500 MG TAB PO SCH ×4 (11:20→20:45)
[2020-06-24] MEDS: Terazosin HCl 5 MG CAP PO SCH (11:20)
[2020-06-24] MEDS: cefTRIAXone\\ROCEPHIN 1 GM in Sodium Chloride 0.9% 100 ML IVPB SCH (12:58)
[2020-06-24] MEDS: Azithromycin 500 MG in Sodium Chloride 0.9% 250 ML 250 ML IVPB SCH (15:48)
[2020-06-24] MEDS: Insulin Regular 300 UNITS/3 ML VIAL SC PRN ×2 (17:19→21:21)
[2020-06-24] MEDS: REMDESIVIR (EUA) 100 MG in Sodium Chloride 0.9% 250 ML 230 ML IV SCH (20:44)
[2020-06-24] MEDS: Atorvastatin Calcium 10 MG TAB PO SCH (20:45)
[2020-06-24] MEDS: Melatonin 3 MG TAB PO SCH (20:45)
[2020-06-25] MEDS: Lorazepam 2 MG/ML VIAL SLOW IVP PRN ×2 (00:47→23:23)
[2020-06-25 04:01] LABS: #Eosinphils 0.1 thou/uL (0.0-0.7); #Lymphocytes 0.6 thou/uL (1.20-3.40); #Monocytes 0.5 thou/uL (0.11-0.59); #Neutrophils 13.1 thou/uL (1.40-6.50); %Eosinophils 0.7 % (0.0-10.0); %Lymphocytes 4.3 % (21.0-51.0); %Monocytes 3.5 % (0.0-10.0); %Neutrophils 91.3 % (42.0-75.0); Hemoglobin 14.3 g/dL (14.0-18.0); Mean Corpuscular HGB CONC 32.9 g/dL (32.0-36.0); Mean Corpuscular Hemoglobin 30.4 pg (27.0-31.0); Mean Corpuscular Volume 92.5 fL (78.0-98.0); Mean Platelet Volume 7.5 fL (7.4-10.4); Platelet Count 390 thou/uL (130-400); RBC Distribution Width 12.8 % (11.5-14.5); Red Blood Cell (RBC) Count 4.69 mill/uL (4.70-6.10); White Blood Cell (WBC) Count 14.3 thou/uL (4.8-10.8)
[2020-06-25 04:17] LABS: Anion Gap 16 mmol/L (10-20); BUN (Urea Nitrogen) 40 mg/dL (8.4-25.7); Calc. Creatinine Clearance 94 mL/min (70-130); Calcium 9.2 mg/dL (7.8-10.44); Carbon Dioxide 20 mmol/L (23-31); Chloride 104 mmol/L (98-107); Glucose 189 mg/dL (80-115); Potassium 4.6 mmol/L (3.5-5.1); Sodium 135 mmol/L (136-145)
[2020-06-25] MEDS: Insulin Regular 300 UNITS/3 ML VIAL SC PRN ×3 (06:10→21:17)
[2020-06-25] MEDS: Acetaminophen 500 MG TAB PO SCH ×4 (08:31→21:16)
[2020-06-25] MEDS: Aspirin Chewable 81 MG TAB PO SCH (08:32)
[2020-06-25] MEDS: Heparin 5,000 UNITS/ML VIAL SC SCH (08:32)
[2020-06-25] MEDS: Terazosin HCl 5 MG CAP PO SCH (08:32)
[2020-06-25] MEDS: Zinc Sulfate 220 MG CAP PO SCH (08:32)
[2020-06-25] MEDS: Dexamethasone 4 mg/ml Vial SLOW IVP SCH (08:32)
--- NOTE | 2020-06-25 09:13 | RAD ---
PORTABLE CHEST: Date: 06/25/2020 HISTORY: Follow-up COVID pneumonia. COMPARISON: 06/24/2020 exam. FINDINGS: Heart size is borderline. Patchy bilateral lung changes are stable. No new process. IMPRESSION: Stable exam. POS: JULIA
--- NOTE | 2020-06-25 09:33 | PRG ---
DATE OF SERVICE: 06/25/2020 SUBJECTIVE: Mr. Harvey is remaining intermittently on BiPAP. He is requiring 60% oxygen. He says he feels fine otherwise. OBJECTIVE: VITAL SIGNS: Temperature 98.3, pulse 87, blood pressure 159/82, O2 saturation in the low 90s. HEENT: Unremarkable. NECK: No JVD. CHEST: Fairly clear anteriorly. CARDIAC: S1, S2. Regular. ABDOMEN: Soft. EXTREMITIES: No edema. LABORATORY DATA: Sodium 135, potassium 4.6, chloride 104, CO2 of 20, BUN 40, creatinine 1.4, glucose 189. White blood cell count 14.3, hematocrit 43.4, and platelet count 390. IMAGING: Chest x-ray is about the same. ASSESSMENT: 1. COVID-19 pneumonia. 2. Status post remdesivir treatment. 3. Acute hypoxic respiratory failure requiring noninvasive ventilation, steroids, and anticoagulation. RECOMMENDATION: 1. I would go ahead and increase his anticoagulation to a therapeutic level. His x-ray is actually looking very good. So I am thinking that microthromboembolic disease may be an issue. 2. Continue to wean BiPAP as tolerated. Job ID: [id number]
[2020-06-25] MEDS: Azithromycin 500 MG in Sodium Chloride 0.9% 250 ML 250 ML IVPB SCH (12:58)
[2020-06-25] MEDS: cefTRIAXone\\ROCEPHIN 1 GM in Sodium Chloride 0.9% 100 ML IVPB SCH (12:58)
[2020-06-25] MEDS: Apixaban 5 MG TAB PO SCH ×2 (12:59→21:17)
[2020-06-25] MEDS: Atorvastatin Calcium 10 MG TAB PO SCH (21:15)
[2020-06-25] MEDS: Melatonin 3 MG TAB PO SCH (21:15)
[2020-06-26 04:14] LABS: #Eosinphils 0.2 thou/uL (0.0-0.7); #Lymphocytes 0.7 thou/uL (1.20-3.40); #Monocytes 0.4 thou/uL (0.11-0.59); #Neutrophils 14.9 thou/uL (1.40-6.50); %Basophils 0.1 % (0.0-1.0); %Lymphocytes 4.6 % (21.0-51.0); %Monocytes 2.3 % (0.0-10.0); Hemoglobin 14.4 g/dL (14.0-18.0); Mean Corpuscular HGB CONC 32.8 g/dL (32.0-36.0); Mean Corpuscular Hemoglobin 30.4 pg (27.0-31.0); Mean Corpuscular Volume 92.5 fL (78.0-98.0); Mean Platelet Volume 7.7 fL (7.4-10.4); Platelet Count 442 thou/uL (130-400); RBC Distribution Width 12.7 % (11.5-14.5); Red Blood Cell (RBC) Count 4.74 mill/uL (4.70-6.10); White Blood Cell (WBC) Count 16.2 thou/uL (4.8-10.8)
[2020-06-26 04:27] LABS: Anion Gap 16 mmol/L (10-20); BUN (Urea Nitrogen) 37 mg/dL (8.4-25.7); Calc. Creatinine Clearance 80 mL/min (70-130); Calcium 9.5 mg/dL (7.8-10.44); Carbon Dioxide 25 mmol/L (23-31); Chloride 102 mmol/L (98-107); Glucose 154 mg/dL (80-115); Potassium 4.7 mmol/L (3.5-5.1); Sodium 138 mmol/L (136-145)
[2020-06-26] MEDS: Zinc Sulfate 220 MG CAP PO SCH (08:44)
[2020-06-26] MEDS: Terazosin HCl 5 MG CAP PO SCH (08:44)
[2020-06-26] MEDS: Aspirin Chewable 81 MG TAB PO SCH (08:44)
[2020-06-26] MEDS: Apixaban 5 MG TAB PO SCH ×2 (08:44→20:49)
--- NOTE | 2020-06-26 08:44 | RAD ---
XR Chest 1 View Portable History: Pneumonia Comparison: Radiograph prior day Findings: Lungs are clear. No pneumothorax or effusion. Cardiac silhouette and mediastinal contours a re within normal limits. No acute osseous abnormality. Impression: No acute intrathoracic abnormality.
[2020-06-26] MEDS: Acetaminophen 500 MG TAB PO SCH ×4 (08:45→20:48)
[2020-06-26] MEDS: Dexamethasone 4 mg/ml Vial SLOW IVP SCH (08:45)
[2020-06-26] MEDS: cefTRIAXone\\ROCEPHIN 1 GM in Sodium Chloride 0.9% 100 ML IVPB SCH (12:22)
[2020-06-26] MEDS: Insulin Regular 300 UNITS/3 ML VIAL SC PRN ×3 (12:26→21:10)
--- NOTE | 2020-06-26 13:37 | EKG ---
Test Reason : Blood Pressure : / mmHG Vent. Rate : 110 BPM Atrial Rate : 110 BPM P-R Int : 150 ms QRS Dur : 148 ms QT Int : 378 ms P-R-T Axes : 033 008 -08 degrees QTc Int : 511 ms Sinus tachycardia Non-specific intra-ventricular conduction block Inferior infarct , age undetermined Abnormal ECG Partial Right bundle branch block Confirmed by FABIÁN TAYLOR, BROCK ([id number]), newspaper copy editor LATIA JOSE ([id number]) on 06/26/2020 1:36:54 PM Referred By: Confirmed By:BROCK LOCKWOOD MD
[2020-06-26] MEDS: Azithromycin 500 MG in Sodium Chloride 0.9% 250 ML 250 ML IVPB SCH (14:25)
--- NOTE | 2020-06-26 14:39 | PRG ---
DATE OF SERVICE: 06/26/2020 SUBJECTIVE: He is up in a chair on high-flow oxygen, actually looks pretty good. OBJECTIVE: VITAL SIGNS: Temperature 99.1, pulse 100, blood pressure 119/70, O2 saturation in the low 90s, on high-flow oxygen 70%. HEENT: Unremarkable. NECK: No JVD. LUNGS: Inspiratory crackles bilaterally. CARDIAC: S1 and S2. Regular. ABDOMEN: Soft. EXTREMITIES: No edema. DIAGNOSTIC STUDIES: His chest x-ray demonstrates clearing lung osorio bilaterally. LABORATORY DATA: White blood cell count 16.2, hematocrit 43.9, and platelet count 442. Sodium 138, potassium 4.7, chloride 102, CO2 of 25, BUN 37, creatinine 1.6, glucose 154. ASSESSMENT: 1. COVID-19 pneumonia. 2. Acute hypoxic respiratory failure. PLAN: He can go to the [facility] alternating between BiPAP and high-flow oxygen. I agree with the steroids and anticoagulation. Job ID: [id number]
[2020-06-26] MEDS: Atorvastatin Calcium 10 MG TAB PO SCH (20:49)
[2020-06-26] MEDS: Melatonin 3 MG TAB PO SCH (20:49)
[2020-06-26] MEDS: Lorazepam 2 MG/ML VIAL SLOW IVP PRN (21:57)
[2020-06-27 03:28] LABS: #Eosinphils 0.1 thou/uL (0.0-0.7); #Lymphocytes 0.8 thou/uL (1.20-3.40); #Monocytes 0.3 thou/uL (0.11-0.59); #Neutrophils 13.6 thou/uL (1.40-6.50); %Eosinophils 0.8 % (0.0-10.0); %Lymphocytes 5.1 % (21.0-51.0); %Monocytes 1.9 % (0.0-10.0); %Neutrophils 92.2 % (42.0-75.0); Mean Corpuscular HGB CONC 34.1 g/dL (32.0-36.0); Mean Corpuscular Hemoglobin 31.5 pg (27.0-31.0); Mean Corpuscular Volume 92.5 fL (78.0-98.0); Mean Platelet Volume 7.4 fL (7.4-10.4); Platelet Count 411 thou/uL (130-400); RBC Distribution Width 12.8 % (11.5-14.5); Red Blood Cell (RBC) Count 4.43 mill/uL (4.70-6.10); White Blood Cell (WBC) Count 14.8 thou/uL (4.8-10.8)
[2020-06-27 03:44] LABS: Anion Gap 14 mmol/L (10-20); BUN (Urea Nitrogen) 40 mg/dL (8.4-25.7); Calc. Creatinine Clearance 102 mL/min (70-130); Carbon Dioxide 24 mmol/L (23-31); Chloride 103 mmol/L (98-107); Glucose 136 mg/dL (80-115); Potassium 4.2 mmol/L (3.5-5.1); Sodium 137 mmol/L (136-145)
[2020-06-27] MEDS ORDERED: Furosemide 40 MG/4 ML VIAL SLOW IVP SCH (08:30)
--- NOTE | 2020-06-27 08:39 | PRG ---
DATE OF SERVICE: 06/27/2020 SUBJECTIVE: The patient is a little worse from an oxygenation standpoint. He is currently on BiPAP, requiring FiO2 of 80%. Otherwise, he looks fine and has no complaints. He had a good day yesterday. OBJECTIVE: VITAL SIGNS: Temperature 97.8, pulse 92, blood pressure 185/87, O2 saturation 86%. HEENT: Unremarkable. NECK: No adenopathy or JVD. LUNGS: Fairly clear. CARDIAC: S1 and S2. Regular. ABDOMEN: Soft. EXTREMITIES: No edema. DIAGNOSTIC STUDIES: His x-ray looks no worse. LABORATORY DATA: Sodium 137, potassium 4.2, chloride 103, CO2 of 24, BUN 40, creatinine 1.2, and glucose 136. White blood cell count 14.8, hematocrit 41, and platelet count 411. ASSESSMENT: 1. COVID-19 pneumonia. 2. Acute hypoxic respiratory failure. 3. Elevated blood glucose. PLAN: 1. Continue steroids and anticoagulation. 2. I will give him one dose of Lasix. 3. Leave in ICU until oxygenation improves. Job ID: [id number]
--- NOTE | 2020-06-27 08:44 | RAD ---
XR Chest 1 View Portable History: Pneumonia Comparison: Radiograph prior day Findings: Relative to the prior examination there is worsening lung aeration with faint granular opac ities throughout the lungs. No pneumothorax. No effusion. No acute osseous abnormality. Impression: New faint granular opacities throughout the lungs may reflect coalescence of groundglass opacities and can be seen with COVID-19 pneumonia.
[2020-06-27] MEDS: Aspirin Chewable 81 MG TAB PO SCH (08:57)
[2020-06-27] MEDS: Zinc Sulfate 220 MG CAP PO SCH (08:57)
[2020-06-27] MEDS: Apixaban 5 MG TAB PO SCH ×2 (08:57→20:28)
[2020-06-27] MEDS: Terazosin HCl 5 MG CAP PO SCH (08:57)
[2020-06-27] MEDS: Dexamethasone 4 mg/ml Vial SLOW IVP SCH (08:57)
[2020-06-27] MEDS ORDERED: Furosemide 40 MG/4 ML VIAL ONE (09:01)
[2020-06-27] MEDS: Acetaminophen 500 MG TAB PO SCH ×4 (10:07→20:27)
[2020-06-27] MEDS ORDERED: cloNIDine 0.1 MG TAB PO PRN (10:17)
[2020-06-27] MEDS: Insulin Regular 300 UNITS/3 ML VIAL SC PRN ×3 (11:40→20:29)
[2020-06-27] MEDS: cefTRIAXone\\ROCEPHIN 1 GM in Sodium Chloride 0.9% 100 ML IVPB SCH (12:48)
[2020-06-27] MEDS: Azithromycin 500 MG in Sodium Chloride 0.9% 250 ML 250 ML IVPB SCH (12:55)
[2020-06-27] MEDS: Melatonin 3 MG TAB PO SCH (20:27)
[2020-06-27] MEDS: Atorvastatin Calcium 10 MG TAB PO SCH (20:28)
[2020-06-27] MEDS: Lorazepam 2 MG/ML VIAL SLOW IVP PRN (22:55)
[2020-06-28 03:51] LABS: #Eosinphils 0.1 thou/uL (0.0-0.7); #Lymphocytes 0.8 thou/uL (1.20-3.40); #Monocytes 0.4 thou/uL (0.11-0.59); #Neutrophils 13.6 thou/uL (1.40-6.50); %Basophils 0.2 % (0.0-1.0); %Eosinophils 0.6 % (0.0-10.0); %Lymphocytes 5.4 % (21.0-51.0); %Monocytes 2.6 % (0.0-10.0); %Neutrophils 91.2 % (42.0-75.0); Hemoglobin 14.6 g/dL (14.0-18.0); Mean Corpuscular HGB CONC 33.3 g/dL (32.0-36.0); Mean Corpuscular Hemoglobin 30.8 pg (27.0-31.0); Mean Corpuscular Volume 92.5 fL (78.0-98.0); Mean Platelet Volume 7.4 fL (7.4-10.4); Platelet Count 400 thou/uL (130-400); RBC Distribution Width 12.8 % (11.5-14.5); Red Blood Cell (RBC) Count 4.73 mill/uL (4.70-6.10); White Blood Cell (WBC) Count 14.9 thou/uL (4.8-10.8)
[2020-06-28 04:12] LABS: Anion Gap 16 mmol/L (10-20); BUN (Urea Nitrogen) 40 mg/dL (8.4-25.7); Calc. Creatinine Clearance 104 mL/min (70-130); Calcium 9.1 mg/dL (7.8-10.44); Carbon Dioxide 24 mmol/L (23-31); Chloride 100 mmol/L (98-107); Glucose 140 mg/dL (80-115); Potassium 4.7 mmol/L (3.5-5.1); Sodium 135 mmol/L (136-145)
--- NOTE | 2020-06-28 08:34 | RAD ---
Portable frontal chest radiograph: 06/28/2020 COMPARISON: 06/27/2020 HISTORY: Pneumonia FINDINGS: There are increased linear interstitial densities within the bilateral perihilar regions an d both lung bases as well as within the mid right lung zone and the right upper lobe region. Superimposed areas of hazy groundglass opacity are noted throughout the right lung and within the lef t lung base. Findings do not appear significantly changed. These opacities are suspicious for bilateral Covid pneumonia in the proper clinical setting. IMPRESSION: No significant interval change.
--- NOTE | 2020-06-28 08:47 | PRG ---
DATE OF SERVICE: 06/28/2020 SUBJECTIVE: He remains on the BiPAP. He is at this point in his lack of improvement. OBJECTIVE: VITAL SIGNS: Temperature 98.7, pulse 97, blood pressure 147/89, O2 saturation in the high 80s to low 90s. HEENT: Unremarkable. NECK: No adenopathy or JVD. LUNGS: Fairly clear. CARDIAC: S1, S2. Regular. ABDOMEN: Soft. EXTREMITIES: No edema. LABORATORY DATA: White blood cell count 14.9, hematocrit 43.8, and platelet count 400. Sodium 135, potassium 4.7, chloride 100, CO2 of 24, BUN 40, creatinine 1.3, glucose 114. IMAGING DATA: Chest x-ray, no significant change. ASSESSMENT: 1. COVID-19 pneumonia. 2. Acute hypoxic respiratory failure. PLAN: Continue basic supportive care with BiPAP, steroids, and anticoagulation. Job ID: [id number]
[2020-06-28] MEDS: Dexamethasone 4 mg/ml Vial SLOW IVP SCH (09:26)
[2020-06-28] MEDS: Aspirin Chewable 81 MG TAB PO SCH (09:27)
[2020-06-28] MEDS: Terazosin HCl 5 MG CAP PO SCH (09:27)
[2020-06-28] MEDS: Apixaban 5 MG TAB PO SCH ×2 (09:27→20:44)
[2020-06-28] MEDS: Acetaminophen 500 MG TAB PO SCH ×4 (09:28→20:51)
[2020-06-28] MEDS: Zinc Sulfate 220 MG CAP PO SCH (09:29)
[2020-06-28] MEDS: cefTRIAXone\\ROCEPHIN 1 GM in Sodium Chloride 0.9% 100 ML IVPB SCH (11:10)
[2020-06-28] MEDS: Azithromycin 500 MG in Sodium Chloride 0.9% 250 ML 250 ML IVPB SCH (13:25)
[2020-06-28] MEDS ORDERED: HYDROcodone/Acetaminophen 5/325 mg Tablet PO PRN (13:35)
[2020-06-28] MEDS: Insulin Regular 300 UNITS/3 ML VIAL SC PRN ×2 (18:31→22:20)
[2020-06-28] MEDS: Atorvastatin Calcium 10 MG TAB PO SCH (20:44)
[2020-06-28] MEDS: Melatonin 3 MG TAB PO SCH (20:45)
[2020-06-28] MEDS: Lorazepam 2 MG/ML VIAL SLOW IVP PRN (22:25)
[2020-06-29 03:48] LABS: #Eosinphils 0.1 thou/uL (0.0-0.7); #Lymphocytes 0.6 thou/uL (1.20-3.40); #Monocytes 0.4 thou/uL (0.11-0.59); #Neutrophils 14.7 thou/uL (1.40-6.50); %Basophils 0.2 % (0.0-1.0); %Eosinophils 0.7 % (0.0-10.0); %Lymphocytes 3.7 % (21.0-51.0); %Monocytes 2.7 % (0.0-10.0); %Neutrophils 92.7 % (42.0-75.0); Hemoglobin 14.4 g/dL (14.0-18.0); Mean Corpuscular HGB CONC 33.2 g/dL (32.0-36.0); Mean Corpuscular Hemoglobin 31.1 pg (27.0-31.0); Mean Corpuscular Volume 93.6 fL (78.0-98.0); Mean Platelet Volume 7.4 fL (7.4-10.4); Platelet Count 406 thou/uL (130-400); RBC Distribution Width 12.6 % (11.5-14.5); Red Blood Cell (RBC) Count 4.64 mill/uL (4.70-6.10); White Blood Cell (WBC) Count 15.9 thou/uL (4.8-10.8)
[2020-06-29 03:58] LABS: Anion Gap 16 mmol/L (10-20); BUN (Urea Nitrogen) 42 mg/dL (8.4-25.7); Calc. Creatinine Clearance 97 mL/min (70-130); Calcium 9.7 mg/dL (7.8-10.44); Carbon Dioxide 27 mmol/L (23-31); Chloride 98 mmol/L (98-107); Glucose 125 mg/dL (80-115); Potassium 4.7 mmol/L (3.5-5.1); Sodium 136 mmol/L (136-145)
--- NOTE | 2020-06-29 08:08 | RAD ---
XR Chest 1 View Portable History: Chest pain. Pneumonia Comparison: Radiograph prior day Findings: Patchy peripheral perihilar airspace opacities. No pneumothorax. No effusion. No acute osse ous abnormality. Impression: Findings of Covid 19 pneumonia without interval improved lung aeration. Relative to 1 wee k prior, the airspace opacities have worsened.
--- NOTE | 2020-06-29 08:27 | PRG ---
DATE OF SERVICE: 06/29/2020 SUBJECTIVE: Mr. Harvey continues to struggle and require noninvasive ventilation. Right now, his FiO2 is set at 80%, high pressure 16, low pressure 8. His x-ray continues to show diffuse bilateral infiltrates with maybe a more concentrated picture than previous day film. OBJECTIVE: VITAL SIGNS: Temperature 98, pulse 106, blood pressure 140/92, O2 saturation in the low 90s. HEENT: Unremarkable. NECK: No adenopathy or JVD. LUNGS: Inspiratory crackles. CARDIAC: S1 and S2. Regular. ABDOMEN: Soft. EXTREMITIES: No edema. LABORATORY DATA: White blood cell count 15.9, hematocrit 43.4, and platelet count 406. Sodium 136, potassium 4.7, chloride 98, CO2 of 27, BUN 42, creatinine 1.3, glucose 125. His weight is actually down 14 pounds since admission. ASSESSMENT: 1. COVID-19 pneumonia. 2. Acute hypoxic respiratory failure requiring mechanical ventilation. PLAN: He continues on anticoagulation and steroids. The lack of improvement is concerning. We will follow. Job ID: [id number]
[2020-06-29] MEDS: Zinc Sulfate 220 MG CAP PO SCH (09:36)
[2020-06-29] MEDS: Aspirin Chewable 81 MG TAB PO SCH (09:36)
[2020-06-29] MEDS: Apixaban 5 MG TAB PO SCH ×2 (09:36→20:59)
[2020-06-29] MEDS: Terazosin HCl 5 MG CAP PO SCH (09:36)
[2020-06-29] MEDS: Dexamethasone 4 mg/ml Vial SLOW IVP SCH (09:36)
[2020-06-29] MEDS: Insulin Regular 300 UNITS/3 ML VIAL SC PRN ×2 (12:38→22:19)
[2020-06-29] MEDS: cefTRIAXone\\ROCEPHIN 1 GM in Sodium Chloride 0.9% 100 ML IVPB SCH (12:38)
[2020-06-29] MEDS: Atorvastatin Calcium 10 MG TAB PO SCH (20:59)
[2020-06-29] MEDS: Melatonin 3 MG TAB PO SCH (20:59)
[2020-06-29] MEDS: Lorazepam 2 MG/ML VIAL SLOW IVP PRN (22:18)
--- NOTE | 2020-06-30 01:15 | CON ---
DATE OF CONSULTATION: 06/29/2020 REASON FOR CONSULTATION: COVID pneumonia. HISTORY OF PRESENT ILLNESS: A 70-year-old patient with history of nephrolithiasis and type 2 diabetes mellitus, who was admitted on June 20 with a 1-week history of fever and progressively worsening body aches and cough as well as dyspnea. On arrival, BP 106/65, heart rate 107, respiratory rate 18, temperature 98, and O2 saturations were 87% on nonrebreathing Ventimask and 98% on high-flow nasal cannula. The exam showed diffuse inspiratory rhonchi. Heart exam tachycardia with no other findings of significance. Abdomen was normal. Neuro examination was normal. Initial lab findings; white cell count 17.3, hemoglobin 14, platelets 295 with 91% neutrophils, and D-dimer 0.97. The first chemistry results with a sodium 133, creatinine 1.65, lactic acid 2.5. Liver profile normal. Total protein 8.2, albumin 3.7. Urinalysis is greater than 50 rbc's and 4-6 wbc's, and SARS-CoV RT-PCR positive. The patient had a chest x-ray on admission, which demonstrated the hazy bilateral pulmonary infiltrates. Dr. Morrison' initial impression was COVID pneumonia, so he was given high-flow oxygen and I think put on remdesivir and convalescent plasma, and the patient had eventually to be transitioned to noninvasive ventilation and basically on the next day following admission, he also had been on BiPAP and he was briefly on high-flow, but most of the time on BiPAP to maintain his oxygenation. His O2 sats have been ranging from 89% to 94% to 96%, and currently, Mr. Harvey is awake and he has a high-flow nasal cannula O2, but he desaturates very quickly to the upper 80s just with a few seconds of talking, so this is a very marginal position, but he is right now at 60 high-flow nasal cannula supplementation. He denies headaches. He is obviously tachypneic and dyspneic. He has no abdominal pain. He is voiding in the urinal. PAST MEDICAL HISTORY: Hyperlipidemia, nephrolithiasis, type 2 diabetes, shoulder surgery SOCIAL HISTORY: Former smoker. No alcoholic beverage use. ALLERGIES: NONE. MEDICATIONS: Had been on, 1. Zocor. 2. Aspirin. 3. Metformin. 4. Vitamin D. 5. VESIcare. Here in the hospital, he is receiving, 1. Rocephin. 2. Decadron. 3. Melatonin. 4. Terazosin. 5. Insulin. 6. Hydrocodone. 7. Looks like he did receive remdesivir, full treatment course. FAMILY HISTORY: Noncontributory. PHYSICAL EXAMINATION: VITAL SIGNS: He is afebrile. BP 140/81, O2 sats 89% to 95% on high-flow at 60 L/minute, 88% FiO2. SKIN: Peripheral IV access. He is voiding in the urinal. No lymphadenopathy. HEENT: Ocular movements conjugate. Oral cavity unremarkable. No jugular vein distention. LUNGS: With very pronounced, scattered, cellophane like inspiratory crackles up to 2/3 of his right and left lung osorio. HEART: S1 and S2. Regular rate. ABDOMEN: Soft, not distended or tender. No ascites. No bladder distention. EXTREMITIES: No joint inflammatory activity. No edema. Pulses 1+ in dorsalis pedis. Moves extremities equally. NEUROLOGIC: He is awake, oriented, but halting speech pattern to dyspnea. LABORATORY DATA: The latest labs, white cell count 15.9, hemoglobin 14, platelets 406, 92% neutrophils. D-dimer last checked eight days ago was 1.43 and I do not see any other markers measured. Urinalysis, 4-6 wbc's. The latest chest x-ray from today demonstrated no improvement in perihilar patchy airspace opacities, actually that have worsened. ASSESSMENT: Type 2 diabetes with severe COVID pneumonia, this is 16th day after the onset of symptoms. Unfortunately, this gentleman looks like he is going down the trajectory that will see those worst case scenario patients, where they never can get out of the inflammatory process. I guess one could try tocilizumab, but it is not yet available in the [facility] system. Other than that, the way his lungs are sounding, I predict that he is going to continue struggling and eventually either have to be intubated or not survive this event. Job ID: [id number] MTDD
[2020-06-30 04:05] LABS: #Eosinphils 0.1 thou/uL (0.0-0.7); #Lymphocytes 0.6 thou/uL (1.20-3.40); #Monocytes 0.5 thou/uL (0.11-0.59); #Neutrophils 14.6 thou/uL (1.40-6.50); %Basophils 0.3 % (0.0-1.0); %Eosinophils 0.4 % (0.0-10.0); %Lymphocytes 3.7 % (21.0-51.0); %Neutrophils 92.7 % (42.0-75.0); Hemoglobin 14.6 g/dL (14.0-18.0); Mean Corpuscular HGB CONC 33.5 g/dL (32.0-36.0); Mean Corpuscular Hemoglobin 30.9 pg (27.0-31.0); Mean Corpuscular Volume 92.2 fL (78.0-98.0); Mean Platelet Volume 7.5 fL (7.4-10.4); Platelet Count 402 thou/uL (130-400); RBC Distribution Width 12.6 % (11.5-14.5); Red Blood Cell (RBC) Count 4.73 mill/uL (4.70-6.10); White Blood Cell (WBC) Count 15.8 thou/uL (4.8-10.8)
[2020-06-30 05:33] LABS: Anion Gap 16 mmol/L (10-20); BUN (Urea Nitrogen) 42 mg/dL (8.4-25.7); Calc. Creatinine Clearance 108 mL/min (70-130); Calcium 9.6 mg/dL (7.8-10.44); Carbon Dioxide 22 mmol/L (23-31); Chloride 99 mmol/L (98-107); Glucose 160 mg/dL (80-115); Potassium 4.3 mmol/L (3.5-5.1); Sodium 133 mmol/L (136-145)
--- NOTE | 2020-06-30 08:05 | RAD ---
EXAM: CHEST ONE VIEW HISTORY: Pneumonia. Follow-up evaluation. COMPARISON: 06/29/2020 FINDINGS: Cardiac silhouette is magnified by projection. Increased interstitial and patchy interstitial opaciti es are seen throughout the lungs bilaterally greater on the right similar in distribution and appearance to prior exam. No new area of consolidation are seen, and there is no pleural effusion. IMPRESSION: Stable chest with findings suggestive of Covid pneumonia.
--- NOTE | 2020-06-30 08:54 | PRG ---
DATE OF SERVICE: 06/30/2020 SUBJECTIVE: The patient remains on BiPAP. He is about the same. OBJECTIVE: VITAL SIGNS: Temperature 98.0, pulse 91, blood pressure 144/74, O2 sat 91%. He is on BiPAP 16/8 with FiO2 of 80%. HEENT: Unremarkable. NECK: No JVD. LUNGS: Inspiratory crackles. CARDIAC: S1 and S2. Regular. ABDOMEN: Soft. EXTREMITIES: No edema. LABORATORY DATA: White blood cell count 15.8, hematocrit 43.6, and platelet count 402. Sodium 133, potassium 4.3, chloride 99, CO2 of 22, BUN 42, creatinine 1.1, and glucose 160. ASSESSMENT: 1. COVID-19 pneumonia. 2. Acute hypoxic respiratory failure requiring mechanical ventilation. PLAN: Continue steroids, anticoagulation, and give him some time. Job ID: [id number]
[2020-06-30] MEDS: Aspirin Chewable 81 MG TAB PO SCH (10:09)
[2020-06-30] MEDS: cefTRIAXone\\ROCEPHIN 1 GM in Sodium Chloride 0.9% 100 ML IVPB SCH (10:09)
[2020-06-30] MEDS: Zinc Sulfate 220 MG CAP PO SCH (10:09)
[2020-06-30] MEDS: Dexamethasone 4 mg/ml Vial SLOW IVP SCH (10:09)
[2020-06-30] MEDS: Apixaban 5 MG TAB PO SCH ×2 (10:09→19:51)
[2020-06-30] MEDS: Terazosin HCl 5 MG CAP PO SCH (10:11)
[2020-06-30] MEDS: Insulin Regular 300 UNITS/3 ML VIAL SC PRN ×3 (11:43→21:32)
[2020-06-30] MEDS: Melatonin 3 MG TAB PO SCH (19:50)
[2020-06-30] MEDS: Atorvastatin Calcium 10 MG TAB PO SCH (19:50)
[2020-06-30] MEDS: Lorazepam 2 MG/ML VIAL SLOW IVP PRN (21:51)
[2020-07-01 04:10] LABS: #Eosinphils 0.1 thou/uL (0.0-0.7); #Lymphocytes 0.6 thou/uL (1.20-3.40); #Monocytes 0.6 thou/uL (0.11-0.59); #Neutrophils 15.6 thou/uL (1.40-6.50); %Eosinophils 0.4 % (0.0-10.0); %Lymphocytes 3.8 % (21.0-51.0); %Monocytes 3.6 % (0.0-10.0); %Neutrophils 92.2 % (42.0-75.0); Hemoglobin 14.7 g/dL (14.0-18.0); Mean Corpuscular HGB CONC 32.3 g/dL (32.0-36.0); Mean Corpuscular Hemoglobin 29.9 pg (27.0-31.0); Mean Corpuscular Volume 92.8 fL (78.0-98.0); Mean Platelet Volume 7.9 fL (7.4-10.4); Platelet Count 392 thou/uL (130-400); RBC Distribution Width 12.7 % (11.5-14.5); Red Blood Cell (RBC) Count 4.92 mill/uL (4.70-6.10); White Blood Cell (WBC) Count 16.9 thou/uL (4.8-10.8)
[2020-07-01 04:26] LABS: Anion Gap 16 mmol/L (10-20); BUN (Urea Nitrogen) 42 mg/dL (8.4-25.7); Calc. Creatinine Clearance 109 mL/min (70-130); Calcium 9.9 mg/dL (7.8-10.44); Carbon Dioxide 27 mmol/L (23-31); Chloride 97 mmol/L (98-107); Glucose 153 mg/dL (80-115); Potassium 4.6 mmol/L (3.5-5.1); Sodium 135 mmol/L (136-145)
--- NOTE | 2020-07-01 08:43 | RAD ---
PORTABLE CHEST: Date: 07/01/2020 HISTORY: Pneumonia. CCU follow-up. COMPARISON: 06/30/2020. FINDINGS: Bilateral interstitial and hazy alveolar infiltrates again noted. More confluent air space type infil trate in the right mid lung again noted. Small effusions. IMPRESSION: No significant interval change. POS: AGW
[2020-07-01] MEDS: Terazosin HCl 5 MG CAP PO SCH (09:28)
[2020-07-01] MEDS: Aspirin Chewable 81 MG TAB PO SCH (09:28)
[2020-07-01] MEDS: Dexamethasone 4 mg/ml Vial SLOW IVP SCH (09:29)
[2020-07-01] MEDS: Apixaban 5 MG TAB PO SCH ×2 (09:29→20:14)
[2020-07-01] MEDS: Zinc Sulfate 220 MG CAP PO SCH (09:29)
--- NOTE | 2020-07-01 10:19 | PRG ---
DATE OF SERVICE: 07/01/2020 The patient is becoming increasingly aggravated with his slow progress. OBJECTIVE: VITAL SIGNS: On exam, temperature 98.1, pulse 90, blood pressure 128/76. HEENT: Unremarkable. NECK: No JVD. LUNGS: Crackles bilaterally. CARDIAC: S1, S2. Regular. ABDOMEN: Soft. EXTREMITIES: No edema. LABORATORY DATA: White blood cell count 16.9, hematocrit 45.7, and platelet count 392. Sodium 135, potassium 4.6, chloride 97, CO2 of 27, BUN 42, creatinine 1.2, glucose 153. X-ray continues to show fairly significant bilateral infiltrates. ASSESSMENT: 1. COVID-19 pneumonia. 2. Acute hypoxic respiratory failure with no evidence of improvement so far. PLAN: We are continuing supportive care with the BiPAP. He is anticoagulated and is on steroids. He is at very high risk to decompensate and needs endotracheal intubation. Job ID: [id number]
--- NOTE | 2020-07-01 11:58 | PQF ---
CLINICAL DOCUMENTATION CLARIFICATION FORM: Dear Dr. Roxi VELASQUEZ Date / Time: 07/01/2020, 1050 Please exercise your independent, professional judgment in responding to the clarification form. Clinical indicators are provided on the bottom of this form for your review. Please check appropriate box(es): [ ] Sepsis [ x ] Severe sepsis with associated acute organ dysfunction: [ x ] Acute Respiratory Failure [ ] Additional/Other: specify: [ ] Septic Shock [ ] Localized infection without sepsis [ ] SIRS due to non-infectious process (please specify etiology) [ ] with organ dysfunction [ ] without organ dysfunction [ x ] Other diagnosis Covid Pneumonia [ ] Unable to determine In addition, please specify: Present on Admission (POA): [ x ] Yes [ ] No [ ] Unable to determine For continuity of documentation, please document condition throughout progress notes and discharge summary. Thank You. To be completed by CDI/Coding staff for physician review: CLINICAL INDICATORS - SIGNS / SYMPTOMS / LABS / RESULTS AND LOCATION IN MR 72% RA > 81% 4l/NC, Resp 35, Pulse 120, Final DX, Covid , hypoxia, Pneumonia WBC 17.3, 19.8, 13.0, 11.7, 12.2, 14.3, 16.2, 14.8, 14.9, 15.9, 15.8, 16.9 Bands 06/21 24 Lactic acid 06/20 2.5 RISK FACTORS / RESULTS AND LOCATION IN MR COVID -19 PNEUMONIA, ACUTE HYPOXIC RESPIRATORY FAILURE ( VELASQUEZ/PN) 07/01 TREATMENTS / RESULTS AND LOCATION IN MR ICU ( 06/20 PRESENT) Supplemental Oxygen ( 06/20 present) Daily CBC ( 06/20 present) ID consult ( Earl/ 06/30) Thank you! CDS Signature: Taylor Morejon RN Phone #: [phone] Date: 07/01/2020 This is a permanent part of the Medical Record [facility]
[2020-07-01] MEDS: Insulin Regular 300 UNITS/3 ML VIAL SC PRN ×3 (12:00→20:23)
[2020-07-01] MEDS: cefTRIAXone\\ROCEPHIN 1 GM in Sodium Chloride 0.9% 100 ML IVPB SCH (14:29)
[2020-07-01] MEDS: Melatonin 3 MG TAB PO SCH (20:13)
[2020-07-01] MEDS: Atorvastatin Calcium 10 MG TAB PO SCH (20:14)
[2020-07-01] MEDS: Lorazepam 2 MG/ML VIAL SLOW IVP PRN (21:50)
[2020-07-02] MEDS: Lorazepam 2 MG/ML VIAL SLOW IVP PRN ×2 (05:22→21:58)
[2020-07-02 05:50] LABS: Anion Gap 18 mmol/L (10-20); BUN (Urea Nitrogen) 47 mg/dL (8.4-25.7); Calc. Creatinine Clearance 109 mL/min (70-130); Carbon Dioxide 25 mmol/L (23-31); Chloride 98 mmol/L (98-107); Glucose 184 mg/dL (80-115); Potassium 4.8 mmol/L (3.5-5.1); Sodium 136 mmol/L (136-145)
[2020-07-02 05:59] LABS: Band 2 % (5-11); Hemoglobin 14.5 g/dL (14.0-18.0); Lymphocytes 1 % (21-51); MDiff Complete? YES; Mean Corpuscular HGB CONC 31.4 g/dL (32.0-36.0); Mean Corpuscular Hemoglobin 29.2 pg (27.0-31.0); Mean Platelet Volume 8.8 fL (7.4-10.4); Monocytes 2 % (0-10); Neutrophil 95 % (42-75); Platelet Count 395 thou/uL (130-400); Platelet Morphology Comment Appears Adequate; RBC Distribution Width 12.6 % (11.5-14.5); RBC Morphology Normal; Red Blood Cell (RBC) Count 4.98 mill/uL (4.70-6.10); White Blood Cell (WBC) Count 22.2 thou/uL (4.8-10.8)
--- NOTE | 2020-07-02 08:05 | RAD ---
EXAM: CHEST ONE VIEW HISTORY: Pneumonia. COMPARISON: 07/01/2020 FINDINGS: Cardiac silhouette is magnified by projection stable in size. Diffuse increased interstitial and patc hy parenchymal airspace opacities are seen similar to prior study. There is no evidence of pneumomediastinum. Medial apical pneumothorax with be difficult to exclude given the degree of pneumo mediastinum. No other interval change. IMPRESSION: 1. Interval development of pneumomediastinum. Small medial apical pneumothorax with be difficult to e ntirely exclude given the degree of pneumomediastinum. 2. Diffuse increased interstitial and patchy parenchymal airspace opacities suggesting bilateral pneu monia with appearance suggestive of Covid pneumonia. 3. Above findings discussed with nurse Cheryl in IMCU on 07/02/2020 at 0759 hours.
[2020-07-02] MEDS: Apixaban 5 MG TAB PO SCH ×2 (08:11→19:48)
[2020-07-02] MEDS: Dexamethasone 4 mg/ml Vial SLOW IVP SCH (08:11)
[2020-07-02] MEDS: Terazosin HCl 5 MG CAP PO SCH (08:11)
[2020-07-02] MEDS: Aspirin Chewable 81 MG TAB PO SCH (08:11)
[2020-07-02] MEDS: Zinc Sulfate 220 MG CAP PO SCH (08:11)
[2020-07-02] MEDS: cefTRIAXone\\ROCEPHIN 1 GM in Sodium Chloride 0.9% 100 ML IVPB SCH (12:24)
[2020-07-02] MEDS: Insulin Regular 300 UNITS/3 ML VIAL SC PRN ×3 (12:43→20:05)
--- NOTE | 2020-07-02 18:30 | PRG ---
DATE OF SERVICE: 07/02/2020 SUBJECTIVE: Evgeny Harvey remains on BiPAP. Chest x-ray today showed pneumomediastinum which is small. OBJECTIVE: VITAL SIGNS: He is afebrile. Heart rate is 100. FiO2 is at 80%. Sats were in the low 90s. LUNGS: He has bilateral equal breath sounds. HEART: Regular rhythm. ABDOMEN: Soft. LABORATORY DATA: White count 22, hemoglobin 14.5, platelets 395,000. Electrolytes are normal. BUN 47, creatinine 1.1. IMPRESSION: Respiratory insufficiency associated with COVID pneumonia. Remains reasonably stable, but may progress to a point where he requires intubation. His fluid balance coming in today was negative, so we will not try and diurese him. We will continue supportive care. Job ID: [id number]
[2020-07-02] MEDS: Atorvastatin Calcium 10 MG TAB PO SCH (19:48)
[2020-07-02] MEDS: Melatonin 3 MG TAB PO SCH (19:48)
[2020-07-03] MEDS: Lorazepam 2 MG/ML VIAL SLOW IVP PRN ×4 (03:39→19:39)
[2020-07-03 04:26] LABS: #Eosinphils 0.1 thou/uL (0.0-0.7); #Lymphocytes 0.7 thou/uL (1.20-3.40); #Monocytes 0.9 thou/uL (0.11-0.59); #Neutrophils 19.8 thou/uL (1.40-6.50); %Basophils 0.1 % (0.0-1.0); %Eosinophils 0.4 % (0.0-10.0); %Lymphocytes 3.4 % (21.0-51.0); %Monocytes 4.1 % (0.0-10.0); Hemoglobin 14.2 g/dL (14.0-18.0); Mean Corpuscular Hemoglobin 28.8 pg (27.0-31.0); Mean Corpuscular Volume 92.8 fL (78.0-98.0); Platelet Count 395 thou/uL (130-400); RBC Distribution Width 12.7 % (11.5-14.5); Red Blood Cell (RBC) Count 4.94 mill/uL (4.70-6.10); White Blood Cell (WBC) Count 21.6 thou/uL (4.8-10.8)
[2020-07-03 04:51] LABS: Anion Gap 14 mmol/L (10-20); BUN (Urea Nitrogen) 46 mg/dL (8.4-25.7); Calc. Creatinine Clearance 123 mL/min (70-130); Calcium 9.9 mg/dL (7.8-10.44); Carbon Dioxide 28 mmol/L (23-31); Chloride 99 mmol/L (98-107); Glucose 166 mg/dL (80-115); Potassium 4.4 mmol/L (3.5-5.1); Sodium 137 mmol/L (136-145)
--- NOTE | 2020-07-03 08:31 | RAD ---
Portable frontal chest radiograph: 07/03/2020 COMPARISON: 07/02/2020 HISTORY: Pneumonia FINDINGS: Significant pneumomediastinum again noted, most prominent in the right perihilar region. St able coarse interstitial and alveolar opacity noted bilaterally. Stable prominence of the cardiac silhouette. No discrete pneumothorax. IMPRESSION: Stable interstitial and alveolar opacity bilaterally with stable significant pneumomedias tinum. No interval change.
[2020-07-03] MEDS: Terazosin HCl 5 MG CAP PO SCH (09:12)
[2020-07-03] MEDS: Dexamethasone 4 mg/ml Vial SLOW IVP SCH (09:13)
[2020-07-03] MEDS: Apixaban 5 MG TAB PO SCH ×2 (09:13→19:40)
[2020-07-03] MEDS: Zinc Sulfate 220 MG CAP PO SCH (09:14)
[2020-07-03] MEDS: Aspirin Chewable 81 MG TAB PO SCH (09:14)
[2020-07-03] MEDS: cefTRIAXone\\ROCEPHIN 1 GM in Sodium Chloride 0.9% 100 ML IVPB SCH (11:10)
[2020-07-03] MEDS: Insulin Regular 300 UNITS/3 ML VIAL SC PRN ×3 (11:11→20:26)
[2020-07-03] MEDS ORDERED: SODIUM CHLORIDE IV SCH (14:00)
[2020-07-03] MEDS ORDERED: MULTIVITAMINS IV SCH (14:00)
[2020-07-03] MEDS: Multivitamins, Adult 10 ML in Sodium Chloride 0.9% 500 ML IV SCH (14:49)
--- NOTE | 2020-07-03 18:58 | PRG ---
DATE OF SERVICE: 07/03/2020 SUBJECTIVE: Mr. Harvey remains on BiPAP. He is 13 days into this hospitalization. He is not really improving much and he is not getting worse dramatically. His symptoms started 1 week prior to admission. Two days prior to admission, he had a positive COVID test, so he is at least 15 days into this and more likely 3 weeks into this. OBJECTIVE: VITAL SIGNS: He is afebrile. Heart rates in the 90s, blood pressure 128/68, respiratory rates in the 20s, oximetry is in the 90s, FiO2 is at 80%. LUNGS: Unchanged. HEART: Unchanged. ABDOMEN: Unchanged. LABORATORY DATA: White count 21, hemoglobin 14, platelets 395. Electrolytes are unremarkable. BUN 46, creatinine 1.01. IMPRESSION: COVID pneumonia, requiring BiPAP, not really getting worse, but not really getting better. He is in negative fluid balance for last 2 days. I do not think volume is the issue. We will continue with supportive care. Job ID: [id number]
[2020-07-03] MEDS: Melatonin 3 MG TAB PO SCH (19:39)
[2020-07-03] MEDS: Docusate 100 MG CAP PO SCH (19:40)
[2020-07-03] MEDS: Atorvastatin Calcium 10 MG TAB PO SCH (19:40)
[2020-07-04] MEDS: Lorazepam 2 MG/ML VIAL SLOW IVP PRN ×3 (00:32→11:43)
[2020-07-04 04:38] LABS: #Eosinphils 0.1 thou/uL (0.0-0.7); #Lymphocytes 0.7 thou/uL (1.20-3.40); #Monocytes 0.7 thou/uL (0.11-0.59); #Neutrophils 15.6 thou/uL (1.40-6.50); %Basophils 0.3 % (0.0-1.0); %Eosinophils 0.3 % (0.0-10.0); %Lymphocytes 3.9 % (21.0-51.0); %Monocytes 4.2 % (0.0-10.0); %Neutrophils 91.3 % (42.0-75.0); Hemoglobin 14.5 g/dL (14.0-18.0); Mean Corpuscular HGB CONC 31.9 g/dL (32.0-36.0); Mean Corpuscular Hemoglobin 29.6 pg (27.0-31.0); Mean Corpuscular Volume 92.9 fL (78.0-98.0); Mean Platelet Volume 8.4 fL (7.4-10.4); Platelet Count 389 thou/uL (130-400); RBC Distribution Width 12.7 % (11.5-14.5); Red Blood Cell (RBC) Count 4.89 mill/uL (4.70-6.10); White Blood Cell (WBC) Count 17.1 thou/uL (4.8-10.8)
[2020-07-04 05:08] LABS: Anion Gap 12 mmol/L (10-20); BUN (Urea Nitrogen) 44 mg/dL (8.4-25.7); Calc. Creatinine Clearance 124 mL/min (70-130); Calcium 9.9 mg/dL (7.8-10.44); Carbon Dioxide 27 mmol/L (23-31); Chloride 99 mmol/L (98-107); Glucose 174 mg/dL (80-115); Potassium 4.3 mmol/L (3.5-5.1); Sodium 134 mmol/L (136-145)
[2020-07-04] MEDS: Zinc Sulfate 220 MG CAP PO SCH (08:58)
[2020-07-04] MEDS: Terazosin HCl 5 MG CAP PO SCH (08:58)
[2020-07-04] MEDS: Apixaban 5 MG TAB PO SCH ×2 (08:58→21:00)
[2020-07-04] MEDS: Docusate 100 MG CAP PO SCH ×2 (08:58→21:00)
[2020-07-04] MEDS: Aspirin Chewable 81 MG TAB PO SCH (08:58)
[2020-07-04] MEDS: Dexamethasone 4 mg/ml Vial SLOW IVP SCH (08:58)
--- NOTE | 2020-07-04 09:24 | RAD ---
PORTABLE CHEST: 07/04/20 PROVIDED CLINICAL HISTORY: Pneumonia. COMPARISON: 07/03/2020 FINDINGS: Significant interval change with respect to the prior examination is not apparent. IMPRESSION: As above. POS: ARABELLA
[2020-07-04] MEDS ORDERED: Propofol 1,000 MG/100 ML VIAL IV ONE ×3 (10:53→11:07)
[2020-07-04] MEDS ORDERED: Fentanyl CADD 100 ML ONE (11:45)
[2020-07-04] MEDS ORDERED: Propofol BOLUS 1,000 MG/100 ML VIAL IV PRN (11:45)
[2020-07-04] MEDS ORDERED: Fentanyl BOLUS 250 ML IVPB PRN (11:45)
[2020-07-04] MEDS ORDERED: DISCONTINUE PREVIOUS NARCOTIC PAIN MEDICATIONS AND BENZODIAZEPINES FS SCH (11:45)
[2020-07-04] MEDS: cefTRIAXone\\ROCEPHIN 1 GM in Sodium Chloride 0.9% 100 ML IVPB SCH (12:12)
[2020-07-04] MEDS: Insulin Regular 300 UNITS/3 ML VIAL SC PRN ×2 (12:22→22:09)
[2020-07-04] MEDS: Multivitamins, Adult 10 ML in Sodium Chloride 0.9% 500 ML IV SCH (12:53)
--- NOTE | 2020-07-04 16:01 | PRG ---
DATE OF SERVICE: 07/04/2020 SUBJECTIVE: Mr. Harvey continued on high-flow BiPAP. He started developing signs of muscle fatigue. I recommended intubation. His hemodynamics have been stable. OBJECTIVE: LUNGS: He had equal breath sounds. HEART: Regular rhythm. ABDOMEN: Soft. EXTREMITIES: Without edema. LABORATORY DATA: White count 17.1, hemoglobin 14.5, platelets 389. Sodium 134, potassium 4.3, chloride 99, bicarb 27, BUN 44, creatinine 1. IMPRESSION: COVID pneumonia with respiratory failure, requiring high-flow BiPAP oxygen. Hopefully, we will see improvement in gas exchange with sedation, positive- pressure ventilation. It is unclear at this point in time, given that he is 14 days into his hospitalization, if proning him will help, but we will see how he does after he is intubated. Critical care time 30 min. Job ID: [id number] MTDD
[2020-07-04] MEDS: Atorvastatin Calcium 10 MG TAB PO SCH (21:00)
[2020-07-04] MEDS: Melatonin 3 MG TAB PO SCH (21:00)
[2020-07-04] MEDS: Propofol 1,000 MG/100 ML VIAL IV PRN (21:28)
[2020-07-05] MEDS: Lorazepam 2 MG/ML VIAL SLOW IVP PRN ×4 (04:03→21:17)
[2020-07-05 04:05] LABS: #Eosinphils 0.2 thou/uL (0.0-0.7); #Lymphocytes 0.6 thou/uL (1.20-3.40); #Neutrophils 17.5 thou/uL (1.40-6.50); %Basophils 0.2 % (0.0-1.0); %Eosinophils 1.2 % (0.0-10.0); %Lymphocytes 3.2 % (21.0-51.0); %Neutrophils 90.4 % (42.0-75.0); Hemoglobin 14.2 g/dL (14.0-18.0); Mean Corpuscular HGB CONC 32.5 g/dL (32.0-36.0); Mean Corpuscular Volume 92.4 fL (78.0-98.0); Mean Platelet Volume 8.2 fL (7.4-10.4); Platelet Count 326 thou/uL (130-400); RBC Distribution Width 12.7 % (11.5-14.5); Red Blood Cell (RBC) Count 4.73 mill/uL (4.70-6.10); White Blood Cell (WBC) Count 19.3 thou/uL (4.8-10.8)
[2020-07-05] MEDS ORDERED: Fentanyl CADD 100 ML ONE ×2 (04:16→19:44)
[2020-07-05] MEDS: Fentanyl CADD 100 ML IV SCH ×2 (04:20→19:47)
[2020-07-05 04:33] LABS: Anion Gap 13 mmol/L (10-20); Calc. Creatinine Clearance 116 mL/min (70-130); Calcium 9.3 mg/dL (7.8-10.44); Carbon Dioxide 25 mmol/L (23-31); Chloride 103 mmol/L (98-107); Glucose 170 mg/dL (80-115); Potassium 4.4 mmol/L (3.5-5.1); Sodium 137 mmol/L (136-145)
[2020-07-05 04:45] LABS: BUN (Urea Nitrogen) 42 mg/dL (8.4-25.7)
[2020-07-05] MEDS: Insulin Regular 300 UNITS/3 ML VIAL SC PRN ×3 (04:53→22:20)
[2020-07-05] MEDS: Acetaminophen 500 MG TAB PO PRN (07:25)
[2020-07-05] MEDS: Apixaban 5 MG TAB PO SCH ×2 (07:27→21:17)
[2020-07-05] MEDS: Zinc Sulfate 220 MG CAP PO SCH (07:27)
[2020-07-05] MEDS: Dexamethasone 4 mg/ml Vial SLOW IVP SCH (07:27)
[2020-07-05] MEDS: Docusate 100 MG CAP PO SCH ×2 (07:27→21:17)
[2020-07-05] MEDS: Aspirin Chewable 81 MG TAB PO SCH (07:27)
[2020-07-05] MEDS: Terazosin HCl 5 MG CAP PO SCH (07:27)
[2020-07-05] MEDS: Propofol 1,000 MG/100 ML VIAL IV PRN ×3 (07:56→23:04)
[2020-07-05 08:37] LABS: Actual Bicarbonate (HCO3a) 26.7 mEq/L (22-28); Base Excess (BEa) 2.1 mEq/L (-2.0 to +3.0); CO2 Tension 41.5 mmHg (35.0-45.0); Calcium, Ionized (arterial) 1.29 mmol/L (1.12-1.30); Carboxyhemoglobin (COHb) 1.9 gm% (0.0-3.0); Hemoglobin (Hb) 14.9 g/dL (14.0-18.0); Potassium - ABG Lab 4.29 mmol/L (3.70-5.30); pH, Arterial 7.43 (7.35-7.45)
[2020-07-05 08:42] LABS: ALV-art Gradient 613.825 mmHg (0-20); O2 Tension (PaO2), arterial 47.3 mmHg (> 80.0); Puncture Site RRA
--- NOTE | 2020-07-05 09:18 | RAD ---
PORTABLE CHEST: HISTORY: Followup of COVID pneumonia. COMPARISON: Prior day's exam. FINDINGS: Endotracheal and NG tubes remain in satisfactory position. Parenchymal lung changes are all stable. IMPRESSION: Stable exam. POS: JULIA
[2020-07-05] MEDS ORDERED: Vecuronium 10 MG VIAL ONE (10:42)
--- NOTE | 2020-07-05 10:42 | PRG ---
DATE OF SERVICE: 07/05/2020 TIME SPENT: 35 minutes of critical care time. SUBJECTIVE: The patient remains intubated on mechanical ventilation. He is extremely hypoxemic, requiring 100% FiO2. OBJECTIVE: VITAL SIGNS: His temperature is 100.9 and that is his T-max, pulse 104, blood pressure 105/62. 24-hour intake 2434, output 1685. HEENT: Unremarkable. NECK: No adenopathy or JVD. LUNGS: Inspiratory crackles bilaterally. CARDIOVASCULAR: S1 and S2. Regular. ABDOMEN: Soft. EXTREMITIES: Edematous. IMAGING DATA: His x-ray shows diffuse bilateral infiltrates. LABORATORY DATA: Sodium 137, potassium 4.4, chloride 103, CO2 of 25, BUN 42, creatinine 1.1, and glucose 170. White blood cell count 19.3, hematocrit 43.7, and platelet count 326. PH of 7.43, pCO2 of 41, and pO2 of 47. ASSESSMENT: 1. COVID-19 pneumonia with worsening gas exchange. 2. Fever, possibly secondary to infection. PLAN: I am going to go ahead and reduce the steroid dose. I will re-culture him and start him on empiric doxycycline. I have added NPH insulin to help control his blood sugars. We will place him in a prone position on mechanical ventilation for the next 48 hours and keep him paralyzed while he is prone. Job ID: [id number]
[2020-07-05] MEDS ORDERED: Sodium Chloride 0.9% (PF) 10 ML VIAL FS PRN (10:45)
[2020-07-05] MEDS: Vecuronium 10 MG VIAL IVP PRN ×5 (11:07→21:17)
[2020-07-05] MEDS: Multivitamins, Adult 10 ML in Sodium Chloride 0.9% 500 ML IV SCH (15:16)
[2020-07-05] MEDS ORDERED: NPH, Human Insulin Isophane 300 UNIT/3 ML VIAL SC SCH (21:00)
[2020-07-05] MEDS: Atorvastatin Calcium 10 MG TAB PO SCH (21:17)
[2020-07-05] MEDS: Melatonin 3 MG TAB PO SCH (21:18)
[2020-07-06] MEDS: Vecuronium 10 MG VIAL IVP PRN ×6 (01:01→22:53)
[2020-07-06 04:26] LABS: Band 1 % (5-11); Hemoglobin 14.4 g/dL (14.0-18.0); Hypochromia SLIGHT = 6-15 cells (100X) (0-5/hpf); Lymphocytes 6 % (21-51); MDiff Complete? YES; Mean Corpuscular HGB CONC 31.3 g/dL (32.0-36.0); Mean Corpuscular Hemoglobin 30.2 pg (27.0-31.0); Mean Corpuscular Volume 96.3 fL (78.0-98.0); Mean Platelet Volume 8.3 fL (7.4-10.4); Monocytes 17 % (0-10); Neutrophil 76 % (42-75); Platelet Count 281 thou/uL (130-400); Platelet Morphology Comment Appears Adequate; RBC Distribution Width 12.5 % (11.5-14.5); Red Blood Cell (RBC) Count 4.78 mill/uL (4.70-6.10); White Blood Cell (WBC) Count 30.1 thou/uL (4.8-10.8)
[2020-07-06] MEDS: Insulin Regular 300 UNITS/3 ML VIAL SC PRN ×2 (04:31→20:58)
[2020-07-06 04:41] LABS: Anion Gap 17 mmol/L (10-20); BUN (Urea Nitrogen) 71 mg/dL (8.4-25.7); Calc. Creatinine Clearance 46 mL/min (70-130); Calcium 9.3 mg/dL (7.8-10.44); Carbon Dioxide 24 mmol/L (23-31); Chloride 99 mmol/L (98-107); Glucose 345 mg/dL (80-115); Potassium 6.4 mmol/L (3.5-5.1); Sodium 134 mmol/L (136-145)
[2020-07-06] MEDS: Propofol 1,000 MG/100 ML VIAL IV PRN ×2 (04:53→19:50)
--- NOTE | 2020-07-06 08:01 | RAD ---
EXAM: Portable chest PROVIDED CLINICAL HISTORY: Respiratory insufficiency COMPARISON: 07/05/2020 FINDINGS: Significant interval change with respect to the prior examination is not apparent. IMPRESSION: As above.
--- NOTE | 2020-07-06 08:06 | PRG ---
DATE OF SERVICE: 07/06/2020 TIME SPENT: 35 minutes of critical care time. SUBJECTIVE: The patient remains in a prone position on mechanical ventilation. OBJECTIVE: VITAL SIGNS: Temperature is 99.1, pulse rate 99, blood pressure , oxygen saturation 99%. 24-hour intake 2190, output 724. HEENT: Difficult to assess because in prone position. NECK: No JVD. LUNGS: Coarse breath sounds. CARDIOVASCULAR: S1 and S2. Regular. ABDOMEN: Soft, obese, and nontender. EXTREMITIES: Edematous. LABORATORY DATA: Sodium 134, potassium 6.4, chloride 99, CO2 of 24, BUN 71, creatinine 2.7, glucose 345. White blood cell count 30, hematocrit 46, platelet count 281. Cultures were redrawn yesterday, results are pending. Chest x-ray continues to show diffuse bilateral infiltrates. ASSESSMENT: 1. COVID-19 pneumonia. 2. Acute hypoxic respiratory failure requiring mechanical ventilation. 3. New finding of acute renal failure and hyperkalemia. 4. Blood sugars profoundly elevated. PLAN: 1. The patient's prognosis is very poor for functional recovery. We will continue the steroids. I have increased his NPH insulin. 2. I have asked Dr. Roth from Nephrology to see the patient about the hyperkalemia and acute renal failure. 3. We will hold his tube feeds as that could be the source of his hyperkalemia. 4. Decrease FiO2, mechanical ventilation. 5. Continue for another 24 hours. Job ID: [id number]
[2020-07-06] MEDS: Zinc Sulfate 220 MG CAP PO SCH (08:09)
[2020-07-06] MEDS: Apixaban 5 MG TAB PO SCH ×2 (08:09→20:54)
[2020-07-06] MEDS: Aspirin Chewable 81 MG TAB PO SCH (08:09)
[2020-07-06] MEDS: Dexamethasone 4 mg/ml Vial SLOW IVP SCH (08:09)
[2020-07-06] MEDS: Docusate 100 MG CAP PO SCH ×2 (08:09→20:54)
[2020-07-06] MEDS: NPH, Human Insulin Isophane 300 UNIT/3 ML VIAL SC SCH ×2 (08:09→20:55)
[2020-07-06] MEDS: Terazosin HCl 5 MG CAP PO SCH (08:09)
[2020-07-06] MEDS: Lorazepam 2 MG/ML VIAL SLOW IVP PRN ×4 (08:11→22:53)
--- NOTE | 2020-07-06 10:00 | ULT ---
Renal ultrasound: 07/06/2020 COMPARISON: None HISTORY: Acute kidney insufficiency TECHNIQUE: Multiplanar grayscale sonographic imaging of the kidneys and urinary bladder obtained. FINDINGS: The right kidney measures approximately 14.5 x 7.1 x 7.6 cm and demonstrates no evidence fo r stone, hydronephrosis, or mass. The urinary bladder is decompressed and contains a Etienne catheter. The left kidney measures 14.6 x 7.5 x 6.1 cm. There appear to be multiple partially obscured cysts wi thin the left kidney measuring up to 3.2 cm. No hydronephrosis or renal calculus appreciated. IMPRESSION: No hydronephrosis.
[2020-07-06] MEDS ORDERED: Budesonide 0.25 MG/2 ML NEB ONE (10:44)
[2020-07-06] MEDS ORDERED: methylPREDNISolone Sod Succ/PF 125 MG/2 ML VIAL IVP SCH (10:45)
[2020-07-06] MEDS ORDERED: Dextrose 50% Abboject 50 ML SYRINGE SLOW IVP SCH (10:45)
[2020-07-06] MEDS ORDERED: Insulin Regular 300 UNITS/3 ML VIAL IVP SCH (10:45)
[2020-07-06] MEDS ORDERED: Calcium Chloride 1 GM/10 ML Abboject SYRINGE ONE (10:53)
[2020-07-06 11:06] LABS: Anion Gap 18 mmol/L (10-20); BUN (Urea Nitrogen) 78 mg/dL (8.4-25.7); Calc. Creatinine Clearance 45 mL/min (70-130); Calcium 9.1 mg/dL (7.8-10.44); Carbon Dioxide 23 mmol/L (23-31); Chloride 101 mmol/L (98-107); Glucose 222 mg/dL (80-115); Sodium 136 mmol/L (136-145)
[2020-07-06 11:08] LABS: HBSAg Index 0.23 S/CO (0-0.99); Hep B Core Total Ab Non-Reactive (NonReactive); Hep B Core Total Index 0.11 S/CO (0-0.79); Hep B Surf Ag Non-Reactive S/CO (NonReactive); Hep C IgG Ab Non-Reactive (NonReactive); Hep C Index 0.22 S/CO (0-0.79)
[2020-07-06] MEDS ORDERED: Calcium Chloride 1 GM/10 ML Abboject SYRINGE IVP SCH (11:15)
[2020-07-06] MEDS: Sodium Chloride 0.9% 1,000 ML IV SCH (11:25)
[2020-07-06 11:26] LABS: HBSAB Concentration 35.42 mIU/mL; Hep B Surf AB Reactive (NonReactive)
[2020-07-06 11:27] LABS: Bilirubin Negative (Negative); Blood, Urine Large (Negative); Glucose, Urine (Dipstick) Negative (Negative); Leukocyte Small (Negative); Protein, Urine (Dipstick) > or equal to 300 mg/dL (Neg-Trace)
[2020-07-06] MEDS ORDERED: Norepinephrine 8 MG/0.9% NS 250 ML IVPB SCH (11:30)
[2020-07-06 11:34] LABS: Clarity Turbid (Clear); Nitrite Unable to Interpret (Negative)
[2020-07-06 11:35] LABS: Ketone, Urine Unable to Interpret mg/dL (Negative); Urobilinogen UNABLE TO INTERPRET mg/dL (Less than 2)
[2020-07-06 11:36] LABS: RBC/HPF Greater than 50 HPF (0-3)
[2020-07-06 11:38] LABS: Bacteria/HPF 1+ HPF (None Seen); Squamous Epithelial None Seen HPF (0-3); WBC/HPF 21-50 HPF (0-3); Yeast-Budding 1+ HPF (None Seen)
[2020-07-06] MEDS ORDERED: Heparin 10,000 UNITS/ 10 ML VIAL ONE (11:42)
[2020-07-06] MEDS ORDERED: Fentanyl CADD 100 ML ONE (11:46)
--- NOTE | 2020-07-06 12:10 | OP ---
DATE OF PROCEDURE: 07/06/2020 PREOPERATIVE DIAGNOSES: 1. Acute renal failure, previously normal renal function. 2. COVID pneumonia, out of isolation. 3. Ventilator dependent. POSTOPERATIVE DIAGNOSES: 1. Acute renal failure, previously normal renal function. 2. COVID pneumonia, out of isolation. 3. Ventilator dependent. PROCEDURES PERFORMED: 1. Right femoral vein Trialysis catheter. 2. Left femoral vein triple-lumen catheter. ANESTHESIA: 1% Xylocaine, Diprivan drip. DESCRIPTION OF PROCEDURE: With the patient at bedside in the ICU with him on a Diprivan drip, both groins were clipped of hair, prepared with ChloraPrep, and draped in routine fashion. Seldinger technique used to place a Trialysis catheter in the right femoral vein and central line in the left femoral vein, removing the J-wire, securing the catheter with 3-0 nylon suture. Each port was aspirated blood, flushed with saline solution. The Trialysis catheter flushed with heparinized saline solution. The patient tolerated the procedure well. Job ID: [id number]
--- NOTE | 2020-07-06 12:47 | CON ---
DATE OF CONSULTATION: REASON FOR CONSULTATION: Hyperkalemia. HISTORY OF PRESENT ILLNESS: A very pleasant 70-year-old gentleman who was treated for COVID, who was noted to have a sudden onset of rise in creatinine compared to yesterday from 1.0 to 2.8. I was consulted as potassium peaked to 6.4. The patient was developing hypertension. No further history can be obtained. PAST MEDICAL HISTORY: Significant for CKD, hematuria, hyperlipidemia, diabetes mellitus, obesity, osteoarthritis, rotator cuff surgery, shoulder surgery, and urinary tract surgery. SOCIAL HISTORY: No alcohol or drug use. FAMILY HISTORY: Negative for ESRD. ALLERGIES: REVIEWED. HOME MEDICATIONS: List reviewed. HOSPITAL MEDICATIONS: List reviewed. REVIEW OF SYSTEMS: Unobtainable. PHYSICAL EXAMINATION: GENERAL: Patient is resting. VITAL SIGNS: Afebrile, pulse 74, breathing at 16, blood pressure 106/67. HEENT: Head normocephalic and atraumatic. Eyes intact, no ulcers. Nose intact, no ulcers. Ears intact, no ulcers. NECK: Supple. No JVD. CHEST: Symmetrical and clear. CARDIOVASCULAR: Shows S1 and S2, no rub, no murmur. GASTROINTESTINAL: Abdomen is soft, bowel sounds positive. EXTREMITIES: Show no edema or ulcers. SKIN: Shows no rash or petechiae. MUSCULOSKELETAL: Shows no joint swelling or stiffness. GENITOURINARY: Shows no Etienne or CVA tenderness. NEUROLOGIC: The patient is resting. LABORATORY DATA: Reviewed. ASSESSMENT AND PLAN: 1. Acute kidney injury with chronic kidney disease, most likely due to acute tubular necrosis due to multiple factors including infectious etiology. We will plan dialysis due to hyperkalemia. 2. Hyperkalemia, plan dialysis. The patient is nonoliguric. 3. Hypertension. We will be supporting blood pressure aggressively. Risks versus benefits of dialysis were discussed with the son and he agreed. The case was discussed with the primary team as well. Job ID: [id number]
[2020-07-06] MEDS: Multivitamins, Adult 10 ML in Sodium Chloride 0.9% 500 ML IV SCH (14:46)
[2020-07-06] MEDS: Atorvastatin Calcium 10 MG TAB PO SCH (20:54)
[2020-07-06] MEDS: Melatonin 3 MG TAB PO SCH (20:56)
[2020-07-06] MEDS: Pantoprazole 40 MG VIAL IVP SCH (20:57)
[2020-07-07] MEDS: Propofol 1,000 MG/100 ML VIAL IV PRN ×6 (01:19→23:50)
[2020-07-07] MEDS: Vecuronium 10 MG VIAL IVP PRN ×6 (02:31→23:50)
[2020-07-07] MEDS: Lorazepam 2 MG/ML VIAL SLOW IVP PRN ×6 (02:31→17:39)
[2020-07-07] MEDS ORDERED: Fentanyl CADD 0 ML ONE (03:26)
[2020-07-07] MEDS: Fentanyl CADD 100 ML IV SCH ×2 (03:32→17:39)
[2020-07-07] MEDS: Sodium Chloride 0.9% 1,000 ML IV SCH ×5 (04:14→23:51)
[2020-07-07 04:37] LABS: #Lymphocytes 0.4 thou/uL (1.20-3.40); #Monocytes 0.8 thou/uL (0.11-0.59); #Neutrophils 19.8 thou/uL (1.40-6.50); %Lymphocytes 2.1 % (21.0-51.0); %Monocytes 3.9 % (0.0-10.0); %Neutrophils 93.9 % (42.0-75.0); Hemoglobin 12.5 g/dL (14.0-18.0); Mean Corpuscular HGB CONC 33.4 g/dL (32.0-36.0); Mean Corpuscular Hemoglobin 31.3 pg (27.0-31.0); Mean Corpuscular Volume 93.6 fL (78.0-98.0); Mean Platelet Volume 9.4 fL (7.4-10.4); Platelet Count 268 thou/uL (130-400); RBC Distribution Width 12.6 % (11.5-14.5); White Blood Cell (WBC) Count 21.1 thou/uL (4.8-10.8)
[2020-07-07 04:53] LABS: Anion Gap 18 mmol/L (10-20); BUN (Urea Nitrogen) 60 mg/dL (8.4-25.7); Calc. Creatinine Clearance 51 mL/min (70-130); Calcium 8.6 mg/dL (7.8-10.44); Carbon Dioxide 22 mmol/L (23-31); Chloride 101 mmol/L (98-107); Glucose 248 mg/dL (80-115); Potassium 4.6 mmol/L (3.5-5.1); Sodium 136 mmol/L (136-145)
[2020-07-07] MEDS: Insulin Regular 300 UNITS/3 ML VIAL SC PRN ×5 (06:19→23:51)
--- NOTE | 2020-07-07 08:59 | RAD ---
CHEST 1 VIEW: INDICATION: History of pneumonia. COMPARISON: Prior exam dated 07/06/2020. IMPRESSION: The patient is intubated with gastric catheter placement. Bilateral airspace disease appears worsene d, particularly in the right upper lobe. No pneumothorax is evident. There is subacute emphysema in volving the neck base which was partially imaged on the prior examination. Findings may reflect trau ma to the soft tissues of the neck. Recommend correlation with clinical exam. POS: TANIA
--- NOTE | 2020-07-07 09:14 | PRG ---
DATE OF SERVICE: 07/07/2020 This is 35 minutes critical care time. SUBJECTIVE: The patient remains intubated on mechanical ventilation. He is currently receiving dialysis. He is requiring Levophed to help support his blood pressure. OBJECTIVE: VITAL SIGNS: His temperature is 98.6, pulse 102, blood pressure 120/67, O2 saturation 91%. 24-hour intake 3927, output 729. HEENT: Unremarkable. NECK: No JVD. LUNGS: Diminished breath sounds at both bases with crackles. CARDIAC: S1 and S2. Regular. ABDOMEN: Soft. EXTREMITIES: Edematous. LABORATORY DATA: White blood cell count 21.1, hematocrit 37.5, and platelet count 268. Sodium 136, potassium 4.6, chloride 101, CO2 of 22, BUN 60, creatinine 2.5, glucose 248. His x-ray shows diffuse bilateral infiltrates. ASSESSMENT: 1. COVID-19 pneumonia. 2. Acute respiratory failure, requiring mechanical ventilation. 3. Acute renal failure. 4. X-ray suggesting possible subcutaneous air in the right supraclavicular area, but no evidence of pneumothorax. PLAN: I spoke with the family on the phone. I think this patient's prognosis is very poor for functional recovery. Unfortunately, he is still requiring 65% FiO2 and I do not think he is stable enough to undergo tracheostomy at this point. We are continuing dialysis, steroids, and anticoagulation. Given that he is on Eliquis and a tracheostomy is being proposed, I am going to switch him over to subcutaneous heparin as that has a shorter half-life. Job ID: [id number]
[2020-07-07] MEDS ORDERED: Heparin 10,000 UNITS/ 10 ML VIAL ONE (09:47)
--- NOTE | 2020-07-07 09:56 | PRG ---
DATE OF SERVICE: 07/07/2020 SUBJECTIVE: A 70-year-old gentleman being seen for acute kidney injury. The patient denies any nausea, vomiting, or chest pain. PHYSICAL EXAMINATION: GENERAL: The patient is resting. VITAL SIGNS: Pulse 98, breathing 16, blood pressure 120/67. HEENT: Head normocephalic and atraumatic. Eyes intact, no ulcers. Nose intact, no ulcers. Ears intact, no ulcers. Neck: Supple. No JVD. Chest: Symmetrical and clear. Cardiovascular: Shows S1 and S2, no rub, no murmur. Gastrointestinal: Abdomen is soft, bowel sounds positive. Extremities: Show no edema or ulcers. Skin: Shows no rash or petechiae. Musculoskeletal: Shows no joint swelling or stiffness. Genitourinary: Shows no Etienne or CVA tenderness. Neurologic: Motor intact. Cranial nerves intact. LABORATORY DATA: Labs show a creatinine of 2.5. ASSESSMENT: 1. Chronic kidney disease stage 6 with hyperkalemia, plan dialysis. 2. Edema, plan dialysis. 3. Respiratory failure, plan dialysis. 4. COVID-19 pneumonia. Overall prognosis is poor. Job ID: [id number]
[2020-07-07] MEDS: Terazosin HCl 5 MG CAP PO SCH (11:04)
[2020-07-07] MEDS: Zinc Sulfate 220 MG CAP PO SCH (11:04)
[2020-07-07] MEDS: Aspirin Chewable 81 MG TAB PO SCH (11:04)
[2020-07-07] MEDS: Docusate 100 MG CAP PO SCH ×2 (11:04→20:52)
[2020-07-07] MEDS: Dexamethasone 4 mg/ml Vial SLOW IVP SCH (11:04)
[2020-07-07] MEDS: Heparin 5,000 UNITS/ML VIAL SC SCH ×3 (11:05→20:53)
[2020-07-07] MEDS: cefTRIAXone\\ROCEPHIN 1 GM in Sodium Chloride 0.9% 100 ML IVPB SCH (11:06)
[2020-07-07] MEDS: NPH, Human Insulin Isophane 300 UNIT/3 ML VIAL SC SCH ×2 (12:48→20:54)
[2020-07-07] MEDS ORDERED: Pancrelipase DR 12,000 1 CAP FS PRN (13:15)
[2020-07-07] MEDS ORDERED: Sodium Bicarbonate Tab 325 MG TAB PER TUBE PRN ×2 (13:15→13:17)
[2020-07-07] MEDS ORDERED: Pancrelipase DR 12,000 1 CAP PER TUBE PRN (13:16)
[2020-07-07] MEDS: Acetaminophen 500 MG TAB PO PRN (14:21)
[2020-07-07] MEDS: Multivitamins, Adult 10 ML in Sodium Chloride 0.9% 500 ML IV SCH (15:10)
--- NOTE | 2020-07-07 16:36 | PDOC.PALCO ---
Palliative Care Consult - Consult Details Requesting Physician: Dr Morrison Reason for Consult: advance directives assistance, family support, complex decision-making Family Members Present: Paitent - Pertinent HPI 70 year old male who was diagnosed Covid + 06/18/2020 but noted an onset of symptoms 06/15/2020. Progressing weakness, and shortness of breath with no relieving measures. Presented to ER at [facility] and was found to have O2 sat in high 80's, high flow ox started, mildly tachycardic. Denies nausea or vomiting, confirms anorexia. He was noted to have bilateral hazy alveolar infiltrates and was admitted for higher level of care. Given Rocephin, Zithromax, Decadron. Continued decline over course of stay and was intubated 07/04/2020. Currently requiring 65% [id number] not stable enough for Trach as per pulmonology. Dialysis has been initiated secondary to renal compromise. - Pertinent PMH Type 2 diabetes, Obesity, - Social History Smoking Status: Former smoker Smoking: quit greater than 1 year Alcohol Use: none Drug Use History: none Living Situation: - Medications MAR Reviewed: Yes - Allergies Allergies/Adverse Reactions: Allergies Allergy/AdvReac Type Severity Reaction Status Date / Time No Known Allergies Allergy Verified 10/23/19 16:56 - Subjective Intubated with ventilatory support. Sedated - ROS Non Response: due to endotracheal tube, due to mental status - Objective Vital Signs: Vital Signs - Most Recent Temp Pulse Resp BP Pulse Ox 98.8 F 127 H 29 H 109/65 92 L 07/07/20 04:00 07/07/20 14:39 07/07/20 14:00 07/07/20 14:39 07/06/20 20:00 Palliative Performance Scale: 20 - Physical Exam Constitutional: encephalitic, ill appearing HEENT: moist MMs Respiratory: diminished lung sound Cardiovascular: RRR, diminished peripheral pulses Gastrointestinal: soft, non-tender, positive bowel sounds Deviation from normal: obese Genitourinary: romero catheter Musculoskeletal: edema present Neurology: no focal deficits Skin: no lesions, no rash Deviation from normal: encephalopathic, sedated - Problem List (1) Pneumonia due to COVID-19 virus Code(s): U07.1 - COVID-19; J12.82 - PNEUMONIA DUE TO CORONAVIRUS DISEASE 2019 Current Visit: Yes Status: Acute (2) Diabetes Code(s): E11.9 - TYPE 2 DIABETES MELLITUS WITHOUT COMPLICATIONS Current Visit: Yes Status: Acute (3) Obesity Code(s): E66.9 - OBESITY, UNSPECIFIED Current Visit: Yes Status: Acute (4) Renal failure Current Visit: Yes Status: Acute (5) Palliative care encounter Code(s): Z51.5 - ENCOUNTER FOR PALLIATIVE CARE Current Visit: Yes Status: Acute (6) Respiratory failure requiring intubation Code(s): J96.90 - RESPIRATORY FAILURE, UNSP, UNSP W HYPOXIA OR HYPERCAPNIA Current Visit: Yes Status: Acute - Plan/Recommendations Plan: Prior conversation with patient son Rose. Patient was hesitant to be intubated. Reviewed records Initiated conversation with patient today. Emotional support offered. Family meeting tomorrow to review resuscitation status, and initiate conversation in relation to Goal of care as uncertain if Patient would desire a Trach/Peg if uncertain of meaningful recovery. Will communicate with Dr Villavicencio and Dr Morrison prior to conversation 07/07/2020 at 1:30. [50] minutes spent on this encounter with >50% of the time in counseling and coordination of care. Thank you for this very appropriate consult.
[2020-07-07] MEDS ORDERED: Fentanyl CADD 100 ML ONE (17:37)
[2020-07-07] MEDS: Atorvastatin Calcium 10 MG TAB PO SCH (20:52)
[2020-07-07] MEDS: Melatonin 3 MG TAB PO SCH (20:54)
[2020-07-07] MEDS: Pantoprazole 40 MG VIAL IVP SCH (20:54)
[2020-07-08] MEDS: Vecuronium 10 MG VIAL IVP PRN ×3 (03:40→22:25)
[2020-07-08] MEDS: Propofol 1,000 MG/100 ML VIAL IV PRN ×5 (03:41→21:34)
[2020-07-08] MEDS: Sodium Chloride 0.9% 1,000 ML IV SCH ×2 (04:49→12:16)
[2020-07-08 05:23] LABS: #Eosinphils 0.1 thou/uL (0.0-0.7); #Lymphocytes 0.6 thou/uL (1.20-3.40); #Neutrophils 13.7 thou/uL (1.40-6.50); %Basophils 0.1 % (0.0-1.0); %Eosinophils 0.4 % (0.0-10.0); %Lymphocytes 3.8 % (21.0-51.0); %Monocytes 6.7 % (0.0-10.0); %Neutrophils 89.1 % (42.0-75.0); Hemoglobin 11.7 g/dL (14.0-18.0); Mean Corpuscular HGB CONC 32.3 g/dL (32.0-36.0); Mean Corpuscular Hemoglobin 30.1 pg (27.0-31.0); Mean Corpuscular Volume 93.2 fL (78.0-98.0); Mean Platelet Volume 8.7 fL (7.4-10.4); Platelet Count 251 thou/uL (130-400); RBC Distribution Width 12.8 % (11.5-14.5); Red Blood Cell (RBC) Count 3.91 mill/uL (4.70-6.10); White Blood Cell (WBC) Count 15.4 thou/uL (4.8-10.8)
[2020-07-08 05:40] LABS: Anion Gap 13 mmol/L (10-20); BUN (Urea Nitrogen) 63 mg/dL (8.4-25.7); Calc. Creatinine Clearance 39 mL/min (70-130); Calcium 8.6 mg/dL (7.8-10.44); Carbon Dioxide 25 mmol/L (23-31); Chloride 104 mmol/L (98-107); Glucose 168 mg/dL (80-115); Potassium 4.3 mmol/L (3.5-5.1); Sodium 138 mmol/L (136-145)
[2020-07-08] MEDS: Insulin Regular 300 UNITS/3 ML VIAL SC PRN ×4 (06:48→20:37)
[2020-07-08] MEDS ORDERED: Fentanyl CADD 100 ML ONE ×2 (08:02→22:30)
[2020-07-08] MEDS: Fentanyl CADD 100 ML IV SCH ×2 (08:09→22:31)
--- NOTE | 2020-07-08 08:34 | RAD ---
PORTABLE CHEST 1 VIEW: Date: 07/08/2020 Time: 0513 hours HISTORY: Respiratory failure, pneumonia. FINDINGS/IMPRESSION: There is mild interval worsening of air space disease in the left lung. A small left pleural effusion may be present. The remainder of the exam is otherwise stable. POS: OFF
[2020-07-08] MEDS: Dexamethasone 4 mg/ml Vial SLOW IVP SCH (08:59)
[2020-07-08] MEDS: cefTRIAXone\\ROCEPHIN 1 GM in Sodium Chloride 0.9% 100 ML IVPB SCH (09:00)
[2020-07-08] MEDS: Terazosin HCl 5 MG CAP PO SCH (09:00)
[2020-07-08] MEDS: Zinc Sulfate 220 MG CAP PO SCH (09:00)
[2020-07-08] MEDS: Aspirin Chewable 81 MG TAB PO SCH (09:00)
[2020-07-08] MEDS: Acetaminophen 500 MG TAB PO PRN ×2 (09:00→14:41)
[2020-07-08] MEDS: Heparin 5,000 UNITS/ML VIAL SC SCH ×3 (09:00→20:38)
[2020-07-08] MEDS: NPH, Human Insulin Isophane 300 UNIT/3 ML VIAL SC SCH ×2 (09:06→20:38)
[2020-07-08] MEDS: Milk Of Magnesia 30 ML UDCUP PER TUBE SCH (10:20)
[2020-07-08] MEDS: Multivitamins, Adult 10 ML in Sodium Chloride 0.9% 500 ML IV SCH (14:30)
--- NOTE | 2020-07-08 15:13 | PRG ---
DATE OF SERVICE: 07/08/2020 SUBJECTIVE: A 70-year-old gentleman being seen for acute kidney injury. Patient is intubated. OBJECTIVE: GENERAL: On exam, the patient is resting. The patient is awake and alert. Vital Signs: Afebrile, pulse 75, breathing at 16, blood pressure 132/69. HEENT: Head normocephalic and atraumatic. Eyes intact, no ulcers. Nose intact, no ulcers. Ears intact, no ulcers. NECK: Supple. No JVD. CHEST: Symmetrical and clear. CARDIOVASCULAR: Shows S1 and S2, no rub, no murmur. GASTROINTESTINAL: Abdomen is soft, bowel sounds positive. EXTREMITIES: Show no edema or ulcers. SKIN: Shows no rash or petechiae. MUSCULOSKELETAL: Shows no joint swelling or stiffness. GENITOURINARY: Shows no Etienne or CVA tenderness. NEUROLOGIC: Motor intact. Cranial nerves intact. The patient is resting. LABORATORY DATA: Hemoglobin 11.7. Creatinine 3.2. ASSESSMENT: 1. Chronic kidney disease stage 4 with acute kidney injury. No indication for dialysis. 2. Hypertensive. 3. Anemia, stable. 4. Patient is nonoliguric. We will follow renal function closely. Job ID: [id number]
[2020-07-08] MEDS: Lorazepam 2 MG/ML VIAL SLOW IVP PRN ×2 (15:57→22:25)
--- NOTE | 2020-07-08 16:08 | PDOC.PALPN ---
Palliative Progress Note - Subjective Intubated, mechanical ventilation. Sedated. Pressure support. - Objective Vital Signs: Vital Signs - Most Recent Temp Pulse Resp BP Pulse Ox 98.8 F 109 H 33 H 117/77 95 07/07/20 04:00 07/08/20 14:31 07/08/20 14:00 07/08/20 14:31 07/07/20 20:00 - Physical Exam Constitutional: encephalitic, ill appearing HEENT: moist MMs Respiratory: no wheezing, diminished lung sound Cardiovascular: RRR, diminished peripheral pulses Gastrointestinal: soft, non-tender, positive bowel sounds Genitourinary: romero catheter Musculoskeletal: no clubbing, edema present, diffuse muscle atrophy Neurology: no focal deficits Skin: cap refill <2 seconds, no lesions, no rash Deviation from normal: encephalopathic, sedated - Assessment (1) Pneumonia due to COVID-19 virus Code(s): U07.1 - COVID-19; J12.82 - PNEUMONIA DUE TO CORONAVIRUS DISEASE 2019 Current Visit: Yes Status: Acute (2) Diabetes Code(s): E11.9 - TYPE 2 DIABETES MELLITUS WITHOUT COMPLICATIONS Current Visit: Yes Status: Acute (3) Obesity Code(s): E66.9 - OBESITY, UNSPECIFIED Current Visit: Yes Status: Acute (4) Renal failure Current Visit: Yes Status: Acute (5) Palliative care encounter Code(s): Z51.5 - ENCOUNTER FOR PALLIATIVE CARE Current Visit: Yes Status: Acute (6) Respiratory failure requiring intubation Code(s): J96.90 - RESPIRATORY FAILURE, UNSP, UNSP W HYPOXIA OR HYPERCAPNIA Current Visit: Yes Status: Acute - Plan Plan: Family meeting to discuss current status and prognosis. Patient three sons and daughter in laws/girlfriends and patient spouse. Answered all questions. Utilized "Hope for the best plan for the worst". Reminded the family that the patient initially did not desire to be intubated Kord/Patient son who is an EMT asked about a Trach. Discussed that it was not an option at this time, and for the family to review what Mr Harvey would desire to have done. Family asked about "compassionate extubation" if he does not improve and continues to decline. Emotional Support and Therapeutic listening. Palliative care communicated with Dr Morrison/Dr Villavicencio aware of meeting. [60] minutes spent on this encounter with >50% of the time in counseling and coordination of care. - ROS Non Response: due to endotracheal tube, due to mental status
--- NOTE | 2020-07-08 16:10 | PDOC.FMACP ---
Advance Care Planning - Problem (1) Pneumonia due to COVID-19 virus Status: Acute Code(s): U07.1 - COVID-19; J12.82 - PNEUMONIA DUE TO CORONAVIRUS DISEASE 2018 (2) Diabetes Status: Acute Code(s): E11.9 - TYPE 2 DIABETES MELLITUS WITHOUT COMPLICATIONS (3) Obesity Status: Acute Code(s): E66.9 - OBESITY, UNSPECIFIED (4) Renal failure Status: Acute (5) Palliative care encounter Status: Acute Code(s): Z51.5 - ENCOUNTER FOR PALLIATIVE CARE (6) Respiratory failure requiring intubation Status: Acute Code(s): J96.90 - RESPIRATORY FAILURE, UNSP, UNSP W HYPOXIA OR HYPERCAPNIA - Note Participants: family, palliative care Summary: Palliative care revisited Advanced Care Planning. The diagnosis, prognosis and goals of care were discussed. Appropriate forms and documentation to accomplish the goals of care were discussed. All questions were answered. Discussed "What would the patient desire" Reviewed resuscitation status. Family elected to transition to DNAR Dr Villavicencio/Dr Morrison notified. Time Spent (mins): 30
[2020-07-08] MEDS: Atorvastatin Calcium 10 MG TAB PO SCH (20:38)
[2020-07-08] MEDS: Pantoprazole 40 MG VIAL IVP SCH (20:38)
[2020-07-08] MEDS: Melatonin 3 MG TAB PO SCH (20:39)
--- NOTE | 2020-07-08 22:03 | PRG ---
DATE OF SERVICE: 07/08/2020 SUBJECTIVE: Mr. Harvey had a large number of family members in the room outside the room, FiO2 is 75%. OBJECTIVE: VITAL SIGNS: Blood pressure 120/66, heart rate is 105, respiratory rate is 18, oximetry is 96. LUNGS: Unchanged. ABDOMEN: Unchanged. LABORATORY DATA: White count is 15.4, hemoglobin 11.7, platelets 251. Electrolytes are normal. BUN 63, creatinine 3.2, up from 2.5 yesterday. IMPRESSION: 1. COVID pneumonia. 2. Diabetes. 3. Progressive renal insufficiency. I am told by Palliative Care that the patient would have never wanted mechanical ventilation and apparently one of the children wants to contemplate tracheostomy. They are continuously reminding him that the father never wanted intubation, much less tracheostomy, if indicated down the road. into his hospitalization, so probably could come out of isolation. Again, writing orders was actually done a week ago based on the time of the onset of his symptoms. His prognosis, given the duration of this illness, is quite poor. Critical care time 30 min. Job ID: [id number] MTDD
[2020-07-09] MEDS: Insulin Regular 300 UNITS/3 ML VIAL SC PRN (00:19)
[2020-07-09] MEDS: Propofol 1,000 MG/100 ML VIAL IV PRN ×9 (00:56→23:33)
[2020-07-09] MEDS: Sodium Chloride 0.9% 1,000 ML IV SCH ×3 (02:13→23:17)
[2020-07-09] MEDS: Vecuronium 10 MG VIAL IVP PRN ×3 (03:14→08:43)
[2020-07-09] MEDS: Lorazepam 2 MG/ML VIAL SLOW IVP PRN ×4 (03:14→10:24)
[2020-07-09 05:03] LABS: #Eosinphils 0.1 thou/uL (0.0-0.7); #Lymphocytes 0.5 thou/uL (1.20-3.40); #Monocytes 0.8 thou/uL (0.11-0.59); %Basophils 0.2 % (0.0-1.0); %Eosinophils 1.1 % (0.0-10.0); %Lymphocytes 4.2 % (21.0-51.0); %Monocytes 6.7 % (0.0-10.0); %Neutrophils 87.9 % (42.0-75.0); Hemoglobin 10.7 g/dL (14.0-18.0); Mean Corpuscular Hemoglobin 29.9 pg (27.0-31.0); Mean Corpuscular Volume 93.5 fL (78.0-98.0); Mean Platelet Volume 9.5 fL (7.4-10.4); Platelet Count 235 thou/uL (130-400); RBC Distribution Width 12.9 % (11.5-14.5); Red Blood Cell (RBC) Count 3.57 mill/uL (4.70-6.10); White Blood Cell (WBC) Count 11.4 thou/uL (4.8-10.8)
[2020-07-09 05:54] LABS: Anion Gap 15 mmol/L (10-20); BUN (Urea Nitrogen) 81 mg/dL (8.4-25.7); Calc. Creatinine Clearance 40 mL/min (70-130); Calcium 8.9 mg/dL (7.8-10.44); Carbon Dioxide 23 mmol/L (23-31); Chloride 108 mmol/L (98-107); Glucose 131 mg/dL (80-115); Potassium 4.5 mmol/L (3.5-5.1); Sodium 141 mmol/L (136-145)
[2020-07-09] MEDS: Terazosin HCl 5 MG CAP PO SCH (08:46)
[2020-07-09] MEDS: Zinc Sulfate 220 MG CAP PO SCH (08:46)
[2020-07-09] MEDS: Milk Of Magnesia 30 ML UDCUP PER TUBE SCH (08:46)
[2020-07-09] MEDS: Aspirin Chewable 81 MG TAB PO SCH (08:46)
[2020-07-09] MEDS: Dexamethasone 4 mg/ml Vial SLOW IVP SCH (08:46)
[2020-07-09] MEDS: cefTRIAXone\\ROCEPHIN 1 GM in Sodium Chloride 0.9% 100 ML IVPB SCH (08:47)
[2020-07-09] MEDS: NPH, Human Insulin Isophane 300 UNIT/3 ML VIAL SC SCH ×2 (09:07→20:47)
[2020-07-09] MEDS: Heparin 5,000 UNITS/ML VIAL SC SCH ×3 (09:07→20:45)
--- NOTE | 2020-07-09 09:11 | RAD ---
CHEST ONE VIEW: History: Pneumonia Comparison: Prior day FINDINGS: Subcutaneous emphysema along the neck is improving. Airspace consolidation is similar. No acute osseous abnormality. Endotracheal tube tip at the clavicular level. Enteric tube tip is below the diaphragm although of th e field of view. IMPRESSION: 1. Improving subcutaneous emphysema. 2. Similar appearance of the extensive airspace consolidation. POS: HOME
--- NOTE | 2020-07-09 10:45 | PRG ---
DATE OF SERVICE: 07/09/2020 SUBJECTIVE: A 70-year-old gentleman, being seen for acute kidney injury. The patient is resting and intubated. PHYSICAL EXAMINATION: GENERAL: The patient is resting. VITAL SIGNS: Afebrile, pulse 75, breathing at 16, blood pressure 131/59. HEENT: Head normocephalic and atraumatic. Eyes intact, no ulcers. Nose intact, no ulcers. Ears intact, no ulcers. NECK: Supple. No JVD. CHEST: Symmetrical and clear. CARDIOVASCULAR: Shows S1 and S2, no rub, no murmur. GASTROINTESTINAL: Abdomen is soft, bowel sounds positive. EXTREMITIES: Show no edema or ulcers. SKIN: Shows no rash or petechiae. MUSCULOSKELETAL: Shows no joint swelling or stiffness. GENITOURINARY: Shows no Etienne or CVA tenderness. NEUROLOGIC: Motor intact. Cranial nerves intact. DIAGNOSTIC STUDIES: Labs show hemoglobin 10.7. Creatinine 3.1. ASSESSMENT AND PLAN: 1. Chronic kidney disease stage 4, stable. 2. Acute kidney injury, improved. 3. Hyperkalemia, stable. No indication for dialysis today. Job ID: [id number]
--- NOTE | 2020-07-09 11:02 | PRG ---
DATE OF SERVICE: 07/09/2020 35 minutes of critical care time. SUBJECTIVE: The patient remains intubated on mechanical ventilation for COVID-19 pneumonia. OBJECTIVE: VITAL SIGNS: Temperature 98.4, pulse 104, blood pressure 121/59, and O2 saturation running generally in the high 80s to low 90s. 24-hour intake 4184, output 1830. HEENT: Unremarkable. NECK: No adenopathy or JVD. LUNGS: Poor air movement. CARDIAC: S1 and S2. Slightly tachycardic. ABDOMEN: Soft and nontender. EXTREMITIES: Decreased edema. LABORATORY DATA: White blood cell count 11.4, hematocrit 33.4, and platelet count 235. Sodium 141, potassium 4.5, chloride 108, CO2 of 23, BUN 81, creatinine 3.2, glucose 131. ASSESSMENT: 1. COVID-19 pneumonia. 2. Acute renal failure secondary to COVID pneumonia. 3. Acute hypoxic respiratory failure requiring mechanical ventilation. PLAN: The patient continues to do poorly despite aggressive care. Dialysis seems to help gas exchange some. The patient remains on antibiotics, anticoagulation, and steroids. Dialysis is being held today because his volume status is okay. He was made DNR yesterday by the family. I do not think he will survive this illness, but we will continue to provide current care until the family wants to withdraw. Job ID: [id number]
[2020-07-09] MEDS ORDERED: Fentanyl CADD 100 ML ONE (12:33)
[2020-07-09] MEDS: Fentanyl CADD 100 ML IV SCH (12:52)
[2020-07-09] MEDS: Multivitamins, Adult 10 ML in Sodium Chloride 0.9% 500 ML IV SCH (14:59)
[2020-07-09] MEDS: Pantoprazole 40 MG VIAL IVP SCH (20:45)
[2020-07-09] MEDS: Melatonin 3 MG TAB PO SCH (20:45)
[2020-07-09] MEDS: Atorvastatin Calcium 10 MG TAB PO SCH (20:45)
[2020-07-10] MEDS: Propofol 1,000 MG/100 ML VIAL IV PRN ×6 (02:05→21:04)
[2020-07-10] MEDS: Vecuronium 10 MG VIAL IVP PRN (02:05)
[2020-07-10] MEDS: Lorazepam 2 MG/ML VIAL SLOW IVP PRN (02:05)
[2020-07-10] MEDS ORDERED: Fentanyl CADD 100 ML ONE ×2 (02:58→17:15)
[2020-07-10] MEDS: Fentanyl CADD 100 ML IV SCH (03:11)
[2020-07-10 04:38] LABS: #Eosinphils 0.2 thou/uL (0.0-0.7); #Lymphocytes 0.5 thou/uL (1.20-3.40); #Monocytes 0.8 thou/uL (0.11-0.59); #Neutrophils 10.8 thou/uL (1.40-6.50); %Basophils 0.2 % (0.0-1.0); %Eosinophils 1.8 % (0.0-10.0); %Monocytes 6.2 % (0.0-10.0); %Neutrophils 87.9 % (42.0-75.0); Mean Corpuscular Hemoglobin 30.4 pg (27.0-31.0); Mean Corpuscular Volume 94.8 fL (78.0-98.0); Platelet Count 234 thou/uL (130-400); RBC Distribution Width 13.2 % (11.5-14.5); Red Blood Cell (RBC) Count 3.62 mill/uL (4.70-6.10); White Blood Cell (WBC) Count 12.3 thou/uL (4.8-10.8)
[2020-07-10 05:22] LABS: Anion Gap 14 mmol/L (10-20); BUN (Urea Nitrogen) 85 mg/dL (8.4-25.7); Calc. Creatinine Clearance 46 mL/min (70-130); Calcium 8.9 mg/dL (7.8-10.44); Carbon Dioxide 21 mmol/L (23-31); Chloride 110 mmol/L (98-107); Glucose 137 mg/dL (80-115); Potassium 4.8 mmol/L (3.5-5.1); Sodium 140 mmol/L (136-145)
[2020-07-10] MEDS: Aspirin Chewable 81 MG TAB PO SCH (07:47)
[2020-07-10] MEDS: Milk Of Magnesia 30 ML UDCUP PER TUBE SCH (07:47)
[2020-07-10] MEDS: Terazosin HCl 5 MG CAP PO SCH (07:47)
[2020-07-10] MEDS: Zinc Sulfate 220 MG CAP PO SCH (07:47)
[2020-07-10] MEDS: Sodium Chloride 0.9% 1,000 ML IV SCH ×2 (07:47→17:20)
[2020-07-10] MEDS: Dexamethasone 4 mg/ml Vial SLOW IVP SCH (07:48)
[2020-07-10] MEDS: Heparin 5,000 UNITS/ML VIAL SC SCH ×3 (07:48→20:31)
[2020-07-10] MEDS: NPH, Human Insulin Isophane 300 UNIT/3 ML VIAL SC SCH ×2 (07:49→21:05)
[2020-07-10] MEDS: cefTRIAXone\\ROCEPHIN 1 GM in Sodium Chloride 0.9% 100 ML IVPB SCH (08:01)
--- NOTE | 2020-07-10 11:47 | PRG ---
DATE OF SERVICE: 07/10/2020 SUBJECTIVE: He remains intubated on mechanical ventilation. He is periodically undergoing dialysis. OBJECTIVE: VITAL SIGNS: His temperature 99.5, pulse 90, blood pressure 126/56, O2 saturation 92%. Intake 4641, output 1464. His last fluid removed by dialysis on 07/08, 1100 mL. HEENT: Unchanged except for an ulcer over the bridge of his nose. NECK: No JVD. LUNGS: Coarse breath sounds. CARDIOVASCULAR: S1 and S2, regular. ABDOMEN: Soft. EXTREMITIES: No edema. IMAGING STUDIES: His x-ray shows no change. LABORATORY DATA: Sodium 140, potassium 4.8, chloride 110, CO2 of 21, BUN 85, creatinine 2.8, glucose 137. His blood sugars are under adequate control. White blood cell count 12.3, hematocrit 34.3, and platelet count 234. ASSESSMENT: 1. COVID-19 pneumonia. 2. Acute renal failure. 3. Acute respiratory failure requiring mechanical ventilation. PLAN: We are continuing present care. He is not weanable at this time. I spoke with the family yesterday. If he continues to do okay through the weekend, then I will consider early tracheostomy next week. Job ID: [id number]
--- NOTE | 2020-07-10 14:51 | PDOC.BPN ---
- Brief Progress Note Encounter Date: 07/10/20 Encounter Time: 14:49 Subjective: Patient continues to be intubated mechanical ventilator. No acute overnight events. Review of systems Gen.: No fever, no chills All the 14 systems reviewed except for the ones mentioned above are negative Physical examination Vital Signs Temp 99.7 F H 07/10/20 12:00 Pulse 89 07/10/20 14:44 Resp 24 H 07/10/20 14:00 BP 124/87 07/10/20 14:44 Pulse Ox 94 L 07/10/20 08:00 Intake & Output 07/09/20 07/10/20 07/10/20 18:59 06:59 18:59 Intake Total 2246.45 2395 90 Output Total 054 419 9658 Balance 1362.45 1815 -1410 Weight 278 lb 3.574 oz 286 lb 9.615 oz Intake: Intake, IV Amount 1794.45 1967 Dexamethasone 3 mg SLOW 0.75 IVP DAILY SHEN Rx#: [id number] Doxycycline Hyclate 100 100 mg In Sodium Chloride 0.9 % 100 ml @ 200 mls/hr IVPB Q12HR SHEN Rx#: [id number] Fentanyl CADD 100 ml @ 78.0 74 Per Protocol IV INF SHEN Rx#:[id number] Lorazepam 2 mg SLOW IVP 2 Q1H PRN Rx#:[id number] Multivitamins, Adult 10 258 293 ml In Sodium Chloride 0.9 % 500 ml @ 85 mls/hr IV 1400 SHEN Rx#:[id number] Norepinephrine 8 MG/0.9% 2.8 NS 250 ml @ Titrate IVPB INF SHEN Rx#:[id number] Propofol 1000 mg (See 469 391 Protocol) IV INF PRN Rx#: [id number] Sodium Chloride 0.9% 1, 973.9 1109 000 ml @ 100 mls/hr IV . Q10H SHEN Rx#:[id number] Vecuronium [place] 10 mg 10 IVP Q30MIN PRN Rx#: [id number] Tube Feeding 242 308 Tube Irrigant 210 120 90 Output: Output, Etienne [phone] Other: Voiding Method Indwelling Catheter Indwelling Catheter Bedside Commode # Bowel Movements 0 Constitutional: Intubated on mechanical ventilator HEENT:ET tube and OG tube noted Neck: Trachea midline, no lymphadenopathy Heart: Regular rate and rhythm; no murmurs Lungs:Transmitted breath sounds, no wheezing Abdomen: Soft; nontender; no guarding/tenderness/rebound Extremities: No calf tenderness; no ulcers, no bruises Neurological: Patient is Sedated Skin: No rash, no ulcers Psychological: Not agitated Labs and Imaging reviewed Laboratory Results - last 24 hr 07/09/20 07/09/20 07/10/20 16:21 20:44 00:04 WBC RBC Hgb Hct MCV MCH MCHC RDW Plt Count MPV Neutrophils % Lymphocytes % Monocytes % Eosinophils % Basophils % Neutrophils # Lymphocytes # Monocytes # Eosinophils # Basophils # Sodium Potassium Chloride Carbon Dioxide Anion Gap BUN Creatinine Estimated GFR (MDRD) Glucose POC Glucose 156 H 148 H 133 H Calcium 07/10/20 07/10/20 07/10/20 04:08 04:16 04:16 WBC 12.3 H RBC 3.62 L Hgb 11.0 L Hct 34.3 L MCV 94.8 MCH 30.4 MCHC 32.0 RDW 13.2 Plt Count 234 MPV 9.0 Neutrophils % 87.9 H Lymphocytes % 4.0 L Monocytes % 6.2 Eosinophils % 1.8 Basophils % 0.2 Neutrophils # 10.8 H Lymphocytes # 0.5 L Monocytes # 0.8 H Eosinophils # 0.2 Basophils # 0.0 Sodium 140 Potassium 4.8 Chloride 110 H Carbon Dioxide 21 L Anion Gap 14 BUN 85 H Creatinine 2.80 H Estimated GFR (MDRD) 23 Glucose 137 H POC Glucose 131 H Calcium 8.9 07/10/20 10:09 WBC RBC Hgb Hct MCV MCH MCHC RDW Plt Count MPV Neutrophils % Lymphocytes % Monocytes % Eosinophils % Basophils % Neutrophils # Lymphocytes # Monocytes # Eosinophils # Basophils # Sodium Potassium Chloride Carbon Dioxide Anion Gap BUN Creatinine Estimated GFR (MDRD) Glucose POC Glucose 114 H Calcium Active Medications Generic Name Dose Route Start Last Admin Trade Name Freq PRN Reason Stop Dose Admin Acetaminophen 1,000 mg 06/29/20 08:00 07/08/20 14:41 Acetaminophen 500 Mg Tab PO 1,000 mg QID PRN Administration PAIN (1-5) / TEMP >100 F Lipase/Protease/Amylase 1 cap 07/07/20 13:[address] 12,000 1 Cap FS .PER PROTOCOL PRN TUBE OCCLUSION PROTOCOL Lipase/Protease/Amylase 1 cap 07/07/20 13:[address] 12,000 1 Cap PER TUBE PRN PRN TUBE OCCLUSION TX Aspirin 81 mg 06/21/20 09:00 07/10/20 07:47 Aspirin Chewable 81 Mg Tab PO 81 mg DAILY SHEN Administration Atorvastatin Calcium 10 mg 06/20/20 21:00 07/09/20 20:45 Atorvastatin Calcium 10 Mg Tab PO 10 mg HS SHEN Administration Clonidine 0.1 mg 06/27/20 10:17 Clonidine 0.1 Mg Tab PO Q1H PRN SYS >170 Dexamethasone 3 mg 07/06/20 09:00 07/10/20 07:48 Dexamethasone 4 Mg/Ml Vial SLOW IVP 3 mg DAILY SHEN Administration Dextrose/Water 25 gm 06/20/20 17:45 Dextrose 50% Abboject 50 Ml Syringe IVP PRN PRN HYPOGLYCEMIA PROTOCOL Glucagon 1 mg 06/20/20 17:45 Glucagon 1 Mg/Ml Vial IM PRN PRN HYPOGLYCEMIA PROTOCOL Heparin Sodium (Porcine) 5,000 units 07/07/20 09:00 07/10/20 07:48 Heparin 5,000 Units/Ml Vial SC 5,000 units TID SHEN Administration Dextrose/Water 1,000 mls @ 0 mls/hr 06/20/20 17:45 D5w IV INF PRN HYPOGLYCEMIA PROTOCOL As Directed Multivitamins 10 ml/ Sodium 510 mls @ 85 mls/hr 07/03/20 14:00 07/09/20 14:59 Chloride IV 510 mls 1400 SHEN Administration Fentanyl 100 mls @ 0 mls/hr 07/04/20 11:45 07/10/20 03:11 Fentanyl Cadd IV 08/03/20 11:45 100 mls INF SHEN Administration Protocol Per Protocol Fentanyl Citrate 250 mls @ 0 mls/hr 07/04/20 11:45 Fentanyl Bolus IVPB 08/03/20 11:45 PRN PRN Breakthrough pain/agitation As Directed Doxycycline Hyclate 100 mg/ 100 mls @ 200 mls/hr 07/05/20 21:00 07/10/20 07:48 Sodium Chloride IVPB 100 mls Q12HR SHEN Administration Sodium Chloride 1,000 mls @ 100 mls/hr 07/06/20 11:30 07/10/20 07:47 Normal Saline 0.9% IV 1,000 mls .Q10H SHEN Administration Ceftriaxone Sodium 1 gm/ 100 mls @ 200 mls/hr 07/07/20 09:00 07/10/20 08:01 Sodium Chloride IVPB 07/11/20 09:29 100 mls Q24HR SHEN Administration Insulin Human NPH 30 unit 07/06/20 09:00 07/10/20 07:49 Nph, Human Insulin Isophane 300 Unit/3 Ml Vial SC 30 units BID SHEN Administration Insulin Human Regular 0 units 07/02/20 08:00 07/09/20 00:19 Insulin Regular 300 Units/3 Ml Vial SC 2 units .MODERATE SLIDING SC PRN Administration MODERATE SLIDING SCALE Protocol Lorazepam 2 mg 07/04/20 11:45 07/10/20 02:05 Lorazepam 2 Mg/Ml Vial SLOW IVP 08/03/20 11:45 2 mg Q1H PRN Administration Breakthrough agitation Magnesium Hydroxide 30 ml 07/08/20 09:00 07/10/20 07:47 Milk Of Magnesia 30 Ml Udcup PER TUBE 30 ml DAILY SHEN Administration Melatonin 9 mg 06/23/20 21:00 07/09/20 20:45 Melatonin 3 Mg Tab PO 9 mg HS SEHN Administration Morphine Sulfate 2 mg 07/04/20 11:45 Morphine 2 Mg/Ml Vial SLOW IVP 08/03/20 11:45 Q1H PRN Breakthrough Pain/Agitation Discontinue Previous 1 each 07/04/20 11:45 Narcotic Pain FS 08/03/20 11:45 Medications And .ONE SHEN Benzodiazepines Pantoprazole Sodium 40 mg 07/06/20 21:00 07/09/20 20:45 Pantoprazole 40 Mg Vial IVP 40 mg 2100 SHEN Administration Propofol 1,000 mg 07/04/20 11:45 07/10/20 10:33 Propofol 1,000 Mg/100 Ml Vial IV 08/03/20 11:45 1,000 mg INF PRN Administration TO ACHIEVE GOAL RASS Protocol Propofol 20 mg 07/04/20 11:45 Propofol Bolus 1,000 Mg/100 Ml Vial IV 08/03/20 11:45 Q5MIN PRN BREAKTHROUGH AGITATION Sodium Bicarbonate 650 mg 07/07/20 13:15 Sodium Bicarbonate Tab 325 Mg Tab PER TUBE .PER PROTOCOL PRN ENTERAL TUBE OCCLUSION Sodium Bicarbonate 650 mg 07/07/20 13:17 Sodium Bicarbonate Tab 325 Mg Tab PER TUBE PRN PRN TUBE OCCLUSION TX Sodium Chloride 10 ml 07/05/20 10:45 07/06/20 20:57 Sodium Chloride 0.9% (Pf) 10 Ml Vial FS 10 ml PRN PRN Administration RECONSTITUTION Terazosin HCl 5 mg 06/23/20 09:00 07/10/20 07:47 Terazosin Hcl 5 Mg Cap PO 5 mg DAILY SHEN Administration Vecuronium [place] 10 mg 07/05/20 10:06 07/10/20 02:05 Vecuronium 10 Mg Vial IVP 10 mg Q30MIN PRN Administration Agitation Zinc Sulfate 220 mg 06/21/20 09:00 07/10/20 07:47 Zinc Sulfate 220 Mg Cap PO 220 mg DAILY SHEN Administration Assessment and plan ARLEN on CKD stage IV Hyperkalemia Pneumonia due to COVID-19 Patient's renal function continues to improve with adequate urine output. Potassium levels within normal limits. Patient is currently on sodium bicarbonate. 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
[2020-07-10] MEDS: Multivitamins, Adult 10 ML in Sodium Chloride 0.9% 500 ML IV SCH (15:01)
--- NOTE | 2020-07-10 16:02 | RAD ---
EXAM: Single view of the chest HISTORY: Pneumonia COMPARISON: 07/09/2020 FINDINGS: Single view of the chest shows a normal sized cardiomediastinal silhouette. The lines and tubes are unchanged in position. Stable multifocal infiltrates are seen in the lungs Degenerative changes are seen in the spine. IMPRESSION: Stable multifocal pneumonia
[2020-07-10] MEDS: Dextrose 50% Abboject 50 ML SYRINGE IVP PRN (20:17)
[2020-07-10] MEDS: Pantoprazole 40 MG VIAL IVP SCH (20:31)
[2020-07-10] MEDS: Atorvastatin Calcium 10 MG TAB PO SCH (20:37)
[2020-07-10] MEDS: Melatonin 3 MG TAB PO SCH (20:38)
[2020-07-11] MEDS: Sodium Chloride 0.9% 1,000 ML IV SCH ×3 (01:38→20:07)
[2020-07-11] MEDS: Propofol 1,000 MG/100 ML VIAL IV PRN ×8 (01:39→21:21)
[2020-07-11 04:01] LABS: #Eosinphils 0.4 thou/uL (0.0-0.7); #Lymphocytes 0.6 thou/uL (1.20-3.40); #Monocytes 0.6 thou/uL (0.11-0.59); #Neutrophils 9.6 thou/uL (1.40-6.50); %Basophils 0.2 % (0.0-1.0); %Eosinophils 3.3 % (0.0-10.0); %Lymphocytes 5.7 % (21.0-51.0); %Monocytes 5.3 % (0.0-10.0); %Neutrophils 85.5 % (42.0-75.0); Hemoglobin 9.8 g/dL (14.0-18.0); Mean Corpuscular HGB CONC 32.1 g/dL (32.0-36.0); Mean Corpuscular Hemoglobin 30.5 pg (27.0-31.0); Mean Corpuscular Volume 94.9 fL (78.0-98.0); Mean Platelet Volume 8.9 fL (7.4-10.4); Platelet Count 229 thou/uL (130-400); RBC Distribution Width 13.3 % (11.5-14.5); Red Blood Cell (RBC) Count 3.23 mill/uL (4.70-6.10); White Blood Cell (WBC) Count 11.3 thou/uL (4.8-10.8)
[2020-07-11 04:19] LABS: Anion Gap 10 mmol/L (10-20); BUN (Urea Nitrogen) 89 mg/dL (8.4-25.7); Calc. Creatinine Clearance 51 mL/min (70-130); Calcium 8.9 mg/dL (7.8-10.44); Carbon Dioxide 24 mmol/L (23-31); Chloride 114 mmol/L (98-107); Glucose 120 mg/dL (80-115); Potassium 4.6 mmol/L (3.5-5.1); Sodium 143 mmol/L (136-145)
[2020-07-11] MEDS ORDERED: Fentanyl CADD 100 ML ONE ×2 (04:30→18:20)
[2020-07-11] MEDS: Lorazepam 2 MG/ML VIAL SLOW IVP PRN ×3 (04:40→12:36)
--- NOTE | 2020-07-11 08:53 | PRG ---
DATE OF SERVICE: 07/11/2020 SUBJECTIVE: The patient continues on mechanical ventilation. He is fairly heavily sedated. When he comes out of sedation, he gets this synchronous with the ventilator. OBJECTIVE: VITAL SIGNS: Temperature 99.9, pulse 98, blood pressure 133/59. 24-hour intake 3502, output 5395. HEENT: Unchanged. NECK: No JVD. LUNGS: Poor air movement. CARDIAC: S1 and S2. Regular. ABDOMEN: Obese, soft, nontender. EXTREMITIES: No edema. LABORATORY DATA: X-ray shows bilateral infiltrates that are unchanged. His white blood cell count is 11, hematocrit 30, and platelet count 229. Sodium 143, potassium 4.6, chloride 114, CO2 of 24, BUN 89, creatinine 2.5, and glucose 120. ASSESSMENT: 1. COVID-19 pneumonia. 2. Acute hypoxic respiratory failure requiring mechanical ventilation. 3. Acute renal failure requiring intermittent dialysis. PLAN: If the family wishes to continue, then I think the patient needs to have a tracheostomy within the next day or two. He is not weanable from mechanical ventilation at this time. 35 minutes critical care time. Job ID: [id number]
[2020-07-11] MEDS: Milk Of Magnesia 30 ML UDCUP PER TUBE SCH (09:21)
[2020-07-11] MEDS: Dexamethasone 4 mg/ml Vial SLOW IVP SCH (09:21)
[2020-07-11] MEDS: cefTRIAXone\\ROCEPHIN 1 GM in Sodium Chloride 0.9% 100 ML IVPB SCH (09:21)
[2020-07-11] MEDS: Heparin 5,000 UNITS/ML VIAL SC SCH ×3 (09:21→20:06)
[2020-07-11] MEDS: Terazosin HCl 5 MG CAP PO SCH (09:22)
[2020-07-11] MEDS: Acetaminophen 500 MG TAB PO PRN (09:22)
[2020-07-11] MEDS: Zinc Sulfate 220 MG CAP PO SCH (09:22)
[2020-07-11] MEDS: Aspirin Chewable 81 MG TAB PO SCH (09:22)
[2020-07-11] MEDS: NPH, Human Insulin Isophane 300 UNIT/3 ML VIAL SC SCH ×2 (09:23→20:09)
--- NOTE | 2020-07-11 10:54 | RAD ---
EXAM: Chest one view: HISTORY: Follow-up pneumonia COMPARISON: 07/10/2020 FINDINGS: Stable life-support tubes. Heart size: Within normal limits. Lungs: Extensive bilateral pneumonia. No pneumothorax or pleural effusion. IMPRESSION: Extensive stable bilateral pneumonia. Continued short-term follow-up.
--- NOTE | 2020-07-11 13:31 | PDOC.BPN ---
- Brief Progress Note Encounter Date: 07/11/20 Encounter Time: 13:31 Subjective: Patient is seen in ICU, intubated on mechanical ventilator. No acute overnight events. Currently on 70% FiO2. Review of systems Gen.: No fever, no chills All the 14 systems reviewed except for the ones mentioned above are negative Physical examination Vital Signs Temp 98.2 F 07/10/20 23:59 Pulse 96 07/11/20 14:56 Resp 24 H 07/11/20 14:00 BP 124/87 07/10/20 14:44 Pulse Ox 94 L 07/10/20 20:00 Intake & Output 07/10/20 07/11/20 07/11/20 18:59 06:59 18:59 Intake Total 2085 1417.3 1414.75 Output Total 3960 1435 1220 Balance -1875 -17.7 194.75 Weight 133 lb 9.6 oz Intake: Intake, IV Amount 1905 1045.3 1234.75 Dexamethasone 3 mg SLOW 0.75 IVP DAILY SHEN Rx#: [id number] Fentanyl CADD 100 ml @ 84 87.3 Per Protocol IV INF SHEN Rx#:[id number] Lorazepam 2 mg SLOW IVP 2 Q1H PRN Rx#:[id number] Multivitamins, Adult 10 500 ml In Sodium Chloride 0.9 % 500 ml @ 85 mls/hr IV 1400 SHEN Rx#:[id number] Propofol 1000 mg (See 430 358 Protocol) IV INF PRN Rx#: [id number] Sodium Chloride 0.9% 1, 170 191 6553 000 ml @ 100 mls/hr IV . Q10H SHEN Rx#:[id number] Tube Feeding 262 Tube Irrigant 180 110 180 Output: Urine 2200 Output, Etienne 1760 1435 1220 Other: Voiding Method Bedside Commode Indwelling Catheter Indwelling Catheter Constitutional: On mechanical ventilator, intubated. HEENT:ET tube and OG tube noted Neck: Trachea midline, no lymphadenopathy Heart: Regular rate and rhythm; no murmurs Lungs:Transmitted breath sounds, no wheezing Abdomen: Soft; nontender; no guarding/tenderness/rebound Extremities: No calf tenderness; no ulcers, no bruises Neurological: Patient is Sedated Skin: No rash, no ulcers Psychological: Not agitated Labs and Imaging reviewed Laboratory Results - last 24 hr 07/10/20 07/10/2007/11/21 20:04 20:57 00:18 WBC RBC Hgb Hct MCV MCH MCHC RDW Plt Count MPV Neutrophils % Lymphocytes % Monocytes % Eosinophils % Basophils % Neutrophils # Lymphocytes # Monocytes # Eosinophils # Basophils # Sodium Potassium Chloride Carbon Dioxide Anion Gap BUN Creatinine Estimated GFR (MDRD) Glucose POC Glucose 69 L 144 H 113 H Calcium 07/11/20 07/11/20 07/11/20 03:30 03:30 08:11 WBC 11.3 H RBC 3.23 L Hgb 9.8 L Hct 30.7 L MCV 94.9 MCH 30.5 MCHC 32.1 RDW 13.3 Plt Count 229 MPV 8.9 Neutrophils % 85.5 H Lymphocytes % 5.7 L Monocytes % 5.3 Eosinophils % 3.3 Basophils % 0.2 Neutrophils # 9.6 H Lymphocytes # 0.6 L Monocytes # 0.6 H Eosinophils # 0.4 Basophils # 0.0 Sodium 143 Potassium 4.6 Chloride 114 H Carbon Dioxide 24 Anion Gap 10 BUN 89 H Creatinine 2.54 H Estimated GFR (MDRD) 25 Glucose 120 H POC Glucose 133 H Calcium 8.9 07/11/20 07/11/20 12:29 15:47 WBC RBC Hgb Hct MCV MCH MCHC RDW Plt Count MPV Neutrophils % Lymphocytes % Monocytes % Eosinophils % Basophils % Neutrophils # Lymphocytes # Monocytes # Eosinophils # Basophils # Sodium Potassium Chloride Carbon Dioxide Anion Gap BUN Creatinine Estimated GFR (MDRD) Glucose POC Glucose 175 H 171 H Calcium Active Medications Generic Name Dose Route Start Last Admin Trade Name Freq PRN Reason Stop Dose Admin Acetaminophen 1,000 mg 06/29/20 08:00 07/11/20 09:22 Acetaminophen 500 Mg Tab PO 1,000 mg QID PRN Administration PAIN (1-5) / TEMP >100 F Lipase/Protease/Amylase 1 cap 07/07/20 13:15 Pancrelipase 12,000 1 Cap FS .PER PROTOCOL PRN TUBE OCCLUSION PROTOCOL Lipase/Protease/Amylase 1 cap 07/07/20 13:16 Pancrelipase 12,000 1 Cap PER TUBE PRN PRN TUBE OCCLUSION TX Aspirin 81 mg 06/21/20 09:00 07/11/20 09:22 Aspirin Chewable 81 Mg Tab PO 81 mg DAILY SHEN Administration Atorvastatin Calcium 10 mg 06/20/20 21:00 07/10/20 20:37 Atorvastatin Calcium 10 Mg Tab PO 10 mg HS SHEN Administration Clonidine 0.1 mg 06/27/20 10:17 Clonidine 0.1 Mg Tab PO Q1H PRN SYS >170 Dexamethasone 3 mg 07/06/20 09:00 07/11/20 09:21 Dexamethasone 4 Mg/Ml Vial SLOW IVP 3 mg DAILY SHEN Administration Dextrose/Water 25 gm 06/20/20 17:45 07/10/20 20:17 Dextrose 50% Abboject 50 Ml Syringe IVP 25 gm PRN PRN Administration HYPOGLYCEMIA PROTOCOL Glucagon 1 mg 06/20/20 17:45 Glucagon 1 Mg/Ml Vial IM PRN PRN HYPOGLYCEMIA PROTOCOL Heparin Sodium (Porcine) 5,000 units 07/07/20 09:00 07/11/20 15:00 Heparin 5,000 Units/Ml Vial SC 5,000 units TID SHEN Administration Dextrose/Water 1,000 mls @ 0 mls/hr 06/20/20 17:45 D5w IV INF PRN HYPOGLYCEMIA PROTOCOL As Directed Multivitamins 10 ml/ Sodium 510 mls @ 85 mls/hr 07/03/20 14:00 07/11/20 15:00 Chloride IV 510 mls 1400 SHEN Administration Fentanyl 100 mls @ 0 mls/hr 07/04/20 11:45 07/10/20 03:11 Fentanyl Cadd IV 08/03/20 11:45 100 mls INF SHEN Administration Protocol Per Protocol Fentanyl Citrate 250 mls @ 0 mls/hr 07/04/20 11:45 Fentanyl Bolus IVPB 08/03/20 11:45 PRN PRN Breakthrough pain/agitation As Directed Doxycycline Hyclate 100 mg/ 100 mls @ 200 mls/hr 07/05/20 21:00 07/11/20 09:40 Sodium Chloride IVPB 100 mls Q12HR SHEN Administration Sodium Chloride 1,000 mls @ 100 mls/hr 07/06/20 11:30 07/11/20 12:36 Normal Saline 0.9% IV 1,000 mls .Q10H SHEN Administration Insulin Human NPH 30 unit 07/06/20 09:00 07/11/20 09:23 Nph, Human Insulin Isophane 300 Unit/3 Ml Vial SC 30 units BID SHEN Administration Insulin Human Regular 0 units 07/02/20 08:00 07/11/20 15:52 Insulin Regular 300 Units/3 Ml Vial SC 2 units .MODERATE SLIDING SC PRN Administration MODERATE SLIDING SCALE Protocol Lorazepam 2 mg 07/04/20 11:45 07/11/20 12:36 Lorazepam 2 Mg/Ml Vial SLOW IVP 08/03/20 11:45 2 mg Q1H PRN Administration Breakthrough agitation Magnesium Hydroxide 30 ml 07/08/20 09:00 07/11/20 09:21 Milk Of Magnesia 30 Ml Udcup PER TUBE 30 ml DAILY SHEN Administration Melatonin 9 mg 06/23/20 21:00 07/10/20 20:38 Melatonin 3 Mg Tab PO 9 mg HS SHEN Administration Morphine Sulfate 2 mg 07/04/20 11:45 Morphine 2 Mg/Ml Vial SLOW IVP 08/03/20 11:45 Q1H PRN Breakthrough Pain/Agitation Discontinue Previous 1 each 07/04/20 11:45 Narcotic Pain FS 08/03/20 11:45 Medications And .ONE SHEN Benzodiazepines Pantoprazole Sodium 40 mg 07/06/20 21:00 07/10/20 20:31 Pantoprazole 40 Mg Vial IVP 40 mg 2100 SHEN Administration Propofol 1,000 mg 07/04/20 11:45 07/11/20 15:43 Propofol 1,000 Mg/100 Ml Vial IV 08/03/20 11:45 1,000 mg INF PRN Administration TO ACHIEVE GOAL RASS Protocol Propofol 20 mg 07/04/20 11:45 Propofol Bolus 1,000 Mg/100 Ml Vial IV 08/03/20 11:45 Q5MIN PRN BREAKTHROUGH AGITATION Sodium Bicarbonate 650 mg 07/07/20 13:15 Sodium Bicarbonate Tab 325 Mg Tab PER TUBE .PER PROTOCOL PRN ENTERAL TUBE OCCLUSION Sodium Bicarbonate 650 mg 07/07/20 13:17 Sodium Bicarbonate Tab 325 Mg Tab PER TUBE PRN PRN TUBE OCCLUSION TX Sodium Chloride 10 ml 07/05/20 10:45 07/06/20 20:57 Sodium Chloride 0.9% (Pf) 10 Ml Vial FS 10 ml PRN PRN Administration RECONSTITUTION Terazosin HCl 5 mg 06/23/20 09:00 07/11/20 09:22 Terazosin Hcl 5 Mg Cap PO 5 mg DAILY SHEN Administration Vecuronium [place] 10 mg 07/05/20 10:06 07/10/20 02:05 Vecuronium 10 Mg Vial IVP 10 mg Q30MIN PRN Administration Agitation Zinc Sulfate 220 mg 06/21/20 09:00 07/11/20 09:22 Zinc Sulfate 220 Mg Cap PO 220 mg DAILY SHEN Administration Assessment and plan ARLEN on CKD stage IV Hyperkalemia Pneumonia due to COVID-19 Patient is non-oliguric, renal function continues to improve. Medications reviewed, patient is currently on doxycycline. Dose medications for EGFR. Discussed with HILTON
[2020-07-11] MEDS: Multivitamins, Adult 10 ML in Sodium Chloride 0.9% 500 ML IV SCH (15:00)
[2020-07-11] MEDS: Insulin Regular 300 UNITS/3 ML VIAL SC PRN (15:52)
[2020-07-11] MEDS: Fentanyl CADD 100 ML IV SCH (18:34)
[2020-07-11] MEDS: Melatonin 3 MG TAB PO SCH (20:06)
[2020-07-11] MEDS: Atorvastatin Calcium 10 MG TAB PO SCH (20:06)
[2020-07-11] MEDS: Pantoprazole 40 MG VIAL IVP SCH (20:06)
[2020-07-12] MEDS: Propofol 1,000 MG/100 ML VIAL IV PRN ×8 (00:10→21:25)
[2020-07-12 05:03] LABS: Anion Gap 10 mmol/L (10-20); BUN (Urea Nitrogen) 73 mg/dL (8.4-25.7); Calc. Creatinine Clearance 27 mL/min (70-130); Carbon Dioxide 26 mmol/L (23-31); Chloride 117 mmol/L (98-107); Glucose 61 mg/dL (80-115); Potassium 4.9 mmol/L (3.5-5.1); Sodium 148 mmol/L (136-145)
[2020-07-12] MEDS: Dextrose 50% Abboject 50 ML SYRINGE IVP PRN (05:11)
[2020-07-12 07:13] LABS: Hemoglobin 10.1 g/dL (14.0-18.0); Mean Corpuscular HGB CONC 32.6 g/dL (32.0-36.0); Mean Corpuscular Hemoglobin 31.4 pg (27.0-31.0); Mean Corpuscular Volume 96.5 fL (78.0-98.0); Mean Platelet Volume 9.3 fL (7.4-10.4); Platelet Count 238 thou/uL (130-400); RBC Distribution Width 13.4 % (11.5-14.5); Red Blood Cell (RBC) Count 3.21 mill/uL (4.70-6.10)
[2020-07-12] MEDS ORDERED: Fentanyl CADD 100 ML ONE ×2 (07:33→21:16)
[2020-07-12] MEDS: Terazosin HCl 5 MG CAP PO SCH (07:42)
[2020-07-12] MEDS: Aspirin Chewable 81 MG TAB PO SCH (07:43)
[2020-07-12] MEDS: Zinc Sulfate 220 MG CAP PO SCH (07:43)
[2020-07-12] MEDS: Milk Of Magnesia 30 ML UDCUP PER TUBE SCH (07:43)
[2020-07-12] MEDS: Dexamethasone 4 mg/ml Vial SLOW IVP SCH (07:43)
[2020-07-12] MEDS: Heparin 5,000 UNITS/ML VIAL SC SCH ×3 (07:43→20:20)
[2020-07-12] MEDS: Sodium Chloride 0.9% 1,000 ML IV SCH ×3 (07:44→20:12)
[2020-07-12] MEDS: NPH, Human Insulin Isophane 300 UNIT/3 ML VIAL SC SCH ×2 (08:17→20:21)
--- NOTE | 2020-07-12 08:30 | RAD ---
Portable frontal chest radiograph: 07/12/2020 COMPARISON: 07/11/2020 HISTORY: Pneumonia FINDINGS: There is an endotracheal tube and nasogastric tube in stable position. There is extensive i nterstitial and alveolar opacity throughout the right lung with a perihilar/bibasilar predominance as well as within the left lung base. IMPRESSION: No significant interval change.
[2020-07-12 08:43] LABS: Band 9 % (5-11); Eosinophils 1 % (0-10); Lymphocytes 6 % (21-51); MDiff Complete? YES; Monocytes 4 % (0-10); Neutrophil 80 % (42-75); Platelet Morphology Comment Appears Adequate; Polychromasia SLIGHT = 2-3 cells (100X) (0-2/hpf)
[2020-07-12] MEDS: Insulin Regular 300 UNITS/3 ML VIAL SC PRN ×3 (11:35→20:24)
[2020-07-12] MEDS: Multivitamins, Adult 10 ML in Sodium Chloride 0.9% 500 ML IV SCH (14:19)
--- NOTE | 2020-07-12 15:57 | PRG ---
DATE OF SERVICE: 07/12/2020 SUBJECTIVE: The patient seen and examined at bedside. Remains intubated. OBJECTIVE: GENERAL: An elderly male, intubated. VITAL SIGNS: Temperature 99.6, pulse 109, respiratory rate blood pressure 126/65. HEENT: Intubated. CV: S1, S2 heard. RESPIRATORY: Coarse breath sounds. GI: Abdomen is soft. MUSCULOSKELETAL: 1+ edema. NEUROLOGIC: Intubated. LABORATORY DATA: Potassium 4.9, BUN is 73, creatinine is 2.2. ASSESSMENT AND PLAN: 1. Acute kidney injury on chronic kidney disease stage 3, dialysis dependent, but making increased amount of urine and labs are stable. 2. Actually, creatinine is down to 2.2 from 2.5 and the peak was 3.2. It seems like having some renal recovery. Continue to avoid nephrotoxins. Monitor. Continue supportive care. 3. Hyperkalemia, better. 4. COVID-19 pneumonia. 5. Acute hypoxic respiratory failure. 6. Overall, labs are getting better. We will follow. Job ID: [id number]
--- NOTE | 2020-07-12 19:05 | PRG ---
DATE OF SERVICE: 07/12/2020 SUBJECTIVE: Evgeny Harvey remains mechanically ventilated. OBJECTIVE: VITAL SIGNS: Respiratory rates in the 20s, heart rate is 108, blood pressure 132/70,, oximetry is in the low 90s. Core temperature is 99. LUNGS: Remarkable for coarse equal breath sounds. HEART: Regular rhythm. ABDOMEN: Soft. EXTREMITIES: Without asymmetry or edema. LABORATORY DATA: White count 11, hemoglobin 10, platelets 238. Sodium 148, potassium 4.9, chloride 117, bicarb 26, BUN 73, creatinine 2.21. IMPRESSION: 1. COVID pneumonia with respiratory failure, but his chest x-ray shows no change. 2. Acute on chronic kidney disease. 3. Diabetes. 4. Family has elected to make him a do not resuscitate patient. Currently not weanable. Critical care time 30 min. Job ID: [id number] MTDD
[2020-07-12] MEDS: Pantoprazole 40 MG VIAL IVP SCH (20:20)
[2020-07-12] MEDS: Atorvastatin Calcium 10 MG TAB PO SCH (20:21)
[2020-07-12] MEDS: Melatonin 3 MG TAB PO SCH (20:21)
--- NOTE | 2020-07-12 20:56 | CON ---
DATE OF CONSULTATION: 07/12/2020 REASON FOR CONSULTATION: Respiratory failure with likely need for tracheostomy and PEG tube placement. HISTORY OF PRESENT ILLNESS: The patient is a 70-year-old obese white male (almost 300 pounds). He was admitted to the hospital on June 20 by his primary care physician, Dr. Thom Morrison. He had a diagnosis of coronavirus and severe respiratory insufficiency. He was trialed for a lengthy period of time with steroids and noninvasive ventilation. He also immediately failed this and was intubated around June 30. He remains intubated at this time on very high levels of PEEP with only 88% saturation on 60% FiO2. He has substantial bilateral pulmonary opacities consistent with COVID. PAST MEDICAL HISTORY: 1. Type 2 diabetes. 2. Dyslipidemia. 3. Morbid obesity. 4. Osteoarthritis. PAST SURGICAL HISTORY: 1. Shoulder surgery. 2. Urinary tract surgery. MEDICATIONS: At home include; 1. Simvastatin. 2. Aspirin. 3. Metformin. 4. MiraLAX. 5. Vitamin D. Current medications include; 1. Atorvastatin. 2. Clonidine. 3. Dexamethasone. 4. Doxycycline. 5. Heparin. 6. Pantoprazole. 7. Propofol. 8. Vecuronium. ALLERGIES: NO KNOWN DRUG ALLERGIES. PERSONAL AND SOCIAL HISTORY: He is and a former smoker. PHYSICAL EXAMINATION: VITAL SIGNS: He is afebrile. Pulse is 113, blood pressure is 126/65. LUNGS: Clear to auscultation anteriorly. CARDIAC: Regular rate and rhythm. ABDOMEN: Obese, but soft, nontender. There are no upper abdominal incisions. LABORATORY DATA: Electrolytes show elevated sodium and chloride. BUN is elevated at 73, creatinine is elevated at 2.2. CBC shows white blood cell count of 11, hemoglobin is 10, platelet count 238. Chest x-ray is reviewed and typical of coronavirus lung infiltrates. ASSESSMENT: The patient with coronavirus-associated respiratory failure. He has been ventilated now for 12 days. 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 Vizcarra, who tells me this time he is not stable for tracheostomy secondary to the high levels of PEEP necessary to ventilate him. We will continue to observe him for now and hopefully he will improve and stabilize to be able to proceed with surgery. I will be happy to proceed with tracheostomy and PEG tube placement since he is stable for such. Job ID: [id number]
[2020-07-12] MEDS: Fentanyl CADD 100 ML IV SCH (21:19)
[2020-07-13] MEDS: Propofol 1,000 MG/100 ML VIAL IV PRN ×5 (00:37→15:08)
[2020-07-13] MEDS: Lorazepam 2 MG/ML VIAL SLOW IVP PRN ×5 (03:14→19:27)
[2020-07-13 03:59] LABS: #Eosinphils 0.3 thou/uL (0.0-0.7); #Lymphocytes 0.6 thou/uL (1.20-3.40); #Monocytes 0.8 thou/uL (0.11-0.59); #Neutrophils 10.3 thou/uL (1.40-6.50); %Basophils 0.1 % (0.0-1.0); %Eosinophils 2.3 % (0.0-10.0); %Lymphocytes 4.8 % (21.0-51.0); %Neutrophils 85.7 % (42.0-75.0); Hemoglobin 10.2 g/dL (14.0-18.0); Mean Corpuscular HGB CONC 30.8 g/dL (32.0-36.0); Mean Corpuscular Hemoglobin 29.8 pg (27.0-31.0); Mean Corpuscular Volume 96.8 fL (78.0-98.0); Platelet Count 245 thou/uL (130-400); RBC Distribution Width 13.5 % (11.5-14.5); Red Blood Cell (RBC) Count 3.43 mill/uL (4.70-6.10)
[2020-07-13 04:20] LABS: Anion Gap 14 mmol/L (10-20); BUN (Urea Nitrogen) 69 mg/dL (8.4-25.7); Calc. Creatinine Clearance 72 mL/min (70-130); Calcium 9.1 mg/dL (7.8-10.44); Carbon Dioxide 22 mmol/L (23-31); Chloride 117 mmol/L (98-107); Glucose 185 mg/dL (80-115); Potassium 5.6 mmol/L (3.5-5.1); Sodium 147 mmol/L (136-145)
[2020-07-13] MEDS: Insulin Regular 300 UNITS/3 ML VIAL SC PRN ×3 (06:43→23:50)
--- NOTE | 2020-07-13 08:06 | RAD ---
XR Chest 1 View Portable HISTORY: Pneumonia, respiratory failure COMPARISON: Previous day FINDINGS: Endotracheal and nasogastric tubes remain in place. Extensive interstitial and alveolar opa cities in the right lung are again seen. There is been a mild interval worsening of opacities in the left lung. No pneumothoraces or large effusions are identified.
[2020-07-13] MEDS: Terazosin HCl 5 MG CAP PO SCH (08:34)
[2020-07-13] MEDS: Dexamethasone 4 mg/ml Vial SLOW IVP SCH (08:34)
[2020-07-13] MEDS: Aspirin Chewable 81 MG TAB PO SCH (08:34)
[2020-07-13] MEDS: Heparin 5,000 UNITS/ML VIAL SC SCH ×3 (08:34→19:27)
[2020-07-13] MEDS: Zinc Sulfate 220 MG CAP PO SCH (08:34)
[2020-07-13] MEDS: Milk Of Magnesia 30 ML UDCUP PER TUBE SCH (08:34)
[2020-07-13] MEDS: NPH, Human Insulin Isophane 300 UNIT/3 ML VIAL SC SCH ×3 (09:31→19:31)
--- NOTE | 2020-07-13 09:36 | PRG ---
DATE OF SERVICE: 07/13/2020 30 minutes critical time. SUBJECTIVE: The patient remains intubated on mechanical ventilation. OBJECTIVE: VITAL SIGNS: His temperature is 99.7, pulse 110, blood pressure 122/67. 24 intake 4834, output 3797. Current ventilator settings, bilevel rate 24, high pressure 32, low pressure 12, FiO2 65%. HEENT: Unremarkable. NECK: No JVD. CHEST: Diminished breath sounds. CARDIAC: S1, S2. Regular. ABDOMEN: Soft, nontender. EXTREMITIES: Trace edema throughout. IMAGING DATA: His chest x-ray shows diffuse bilateral infiltrates. LABORATORY DATA: White blood cell count 12, hematocrit 33.2, and platelet count 245. Sodium 147, potassium 5.6, chloride 117, CO2 of 22, BUN 69, creatinine 1.8, glucose 185. ASSESSMENT: 1. Coronavirus disease 2019 pneumonia. 2. Acute respiratory failure, requiring mechanical ventilation. 3. Acute renal failure. PLAN: I am going to try changed him over to conventional SIMV, so that he will be better equipped to go down, have his tracheostomy placed. His blood sugars seem to be coming under better control, so I will lower his NPH dose. Job ID: [id number]
[2020-07-13] MEDS ORDERED: Fentanyl CADD 100 ML ONE (10:53)
[2020-07-13] MEDS: Sodium Chloride 0.9% 1,000 ML IV SCH ×2 (12:09→23:34)
[2020-07-13 12:50] LABS: Anion Gap 11 mmol/L (10-20); BUN (Urea Nitrogen) 64 mg/dL (8.4-25.7); Calc. Creatinine Clearance 74 mL/min (70-130); Calcium 9.1 mg/dL (7.8-10.44); Carbon Dioxide 24 mmol/L (23-31); Chloride 117 mmol/L (98-107); Glucose 232 mg/dL (80-115); Potassium 5.9 mmol/L (3.5-5.1); Sodium 146 mmol/L (136-145)
[2020-07-13] MEDS: Multivitamins, Adult 10 ML in Sodium Chloride 0.9% 500 ML IV SCH (13:18)
[2020-07-13] MEDS ORDERED: LOKELMA 10 GM PACKET PO SCH (15:15)
--- NOTE | 2020-07-13 15:47 | PRG ---
DATE OF SERVICE: 07/13/2020 SUBJECTIVE: The patient was seen and examined in ICU, remains intubated. OBJECTIVE: GENERAL: This is an elderly male, who is intubated. VITAL SIGNS: Temperature 99.2, pulse 120, respirations 16, blood pressure 128/74. HEENT: Intubated. CVS: S1 and S2, heard. RESPIRATORY: Clear to auscultation. GI: Abdomen is soft. MUSCULOSKELETAL: 1+ edema. NEUROLOGICAL: Intubated. LABORATORY DATA: Hemoglobin is 10.2. Potassium 5.9, sodium 146, BUN is 64, creatinine is 1.8. ASSESSMENT AND PLAN: 1. Acute kidney injury, on chronic kidney disease stage 3. No indication for dialysis. He is making increased amount of urine, almost 3.7 L, but hyperkalemia is concerning. I talked with the nurse to adjust the tube feeds. We will add Lokelma also. 2. Hyperkalemia. We will add Lokelma. 3. COVID-19 pneumonia. 4. Acute hypoxic respiratory failure. 5. Edema. 6. Hypertension. We will add Lokelma, limit potassium, and we will follow. Job ID: [id number]
--- NOTE | 2020-07-13 16:24 | PRG ---
DATE OF SERVICE: 07/13/2020 Mr. Harvey remains in the intensive care unit, ventilated, sedated, and paralyzed. He has been cared for by Dr. Villavicencio today. Examination at bedside revealed no obvious changes in his physical examination. He is still hypoxic on 65% FiO2 (saturations currently 90%). He was on very high PEEP as well. I spoke with Dr. Villavicencio. He will look at making some ventilator changes to see if he is stable enough to proceed to the operating room for tracheostomy. If so, then we will plan on doing this within the next day or 2. Job ID: [id number]
[2020-07-13] MEDS: Pantoprazole 40 MG VIAL IVP SCH (19:28)
[2020-07-13] MEDS: Atorvastatin Calcium 10 MG TAB PO SCH (19:30)
[2020-07-13] MEDS: LOKELMA 10 GM PACKET PO SCH (19:30)
[2020-07-13] MEDS: Melatonin 3 MG TAB PO SCH (19:31)
[2020-07-13] MEDS: Acetaminophen 500 MG TAB PO PRN (19:31)
[2020-07-14] MEDS: Propofol 1,000 MG/100 ML VIAL IV PRN ×4 (00:03→21:25)
[2020-07-14 07:22] LABS: #Eosinphils 0.1 thou/uL (0.0-0.7); #Lymphocytes 0.8 thou/uL (1.20-3.40); #Monocytes 0.8 thou/uL (0.11-0.59); #Neutrophils 10.4 thou/uL (1.40-6.50); %Basophils 0.3 % (0.0-1.0); %Eosinophils 0.6 % (0.0-10.0); %Lymphocytes 6.5 % (21.0-51.0); %Monocytes 6.5 % (0.0-10.0); %Neutrophils 86.2 % (42.0-75.0); Anion Gap 12 mmol/L (10-20); BUN (Urea Nitrogen) 62 mg/dL (8.4-25.7); Calc. Creatinine Clearance 86 mL/min (70-130); Calcium 9.2 mg/dL (7.8-10.44); Carbon Dioxide 24 mmol/L (23-31); Chloride 121 mmol/L (98-107); Glucose 139 mg/dL (80-115); Hemoglobin 10.2 g/dL (14.0-18.0); Mean Corpuscular HGB CONC 30.5 g/dL (32.0-36.0); Mean Corpuscular Hemoglobin 29.8 pg (27.0-31.0); Mean Corpuscular Volume 97.6 fL (78.0-98.0); Mean Platelet Volume 9.4 fL (7.4-10.4); Platelet Count 231 thou/uL (130-400); Potassium 4.9 mmol/L (3.5-5.1); RBC Distribution Width 13.5 % (11.5-14.5); Red Blood Cell (RBC) Count 3.42 mill/uL (4.70-6.10); Sodium 152 mmol/L (136-145); White Blood Cell (WBC) Count 12.1 thou/uL (4.8-10.8)
[2020-07-14] MEDS: Milk Of Magnesia 30 ML UDCUP PER TUBE SCH (07:37)
[2020-07-14] MEDS: Heparin 5,000 UNITS/ML VIAL SC SCH ×3 (07:37→21:25)
[2020-07-14] MEDS: Dexamethasone 4 mg/ml Vial SLOW IVP SCH (07:37)
[2020-07-14] MEDS: Terazosin HCl 5 MG CAP PO SCH (07:37)
[2020-07-14] MEDS: Aspirin Chewable 81 MG TAB PO SCH (07:37)
[2020-07-14] MEDS: Zinc Sulfate 220 MG CAP PO SCH (07:37)
[2020-07-14] MEDS: LOKELMA 10 GM PACKET PO SCH ×3 (07:38→11:28)
--- NOTE | 2020-07-14 07:38 | RAD ---
Chest one view HISTORY: Pneumonia. Follow-up. COMPARISON: 07/13/2020. FINDINGS: Cardiac silhouette is magnified by projection. Pulmonary vasculature remains engorged. Mediastinum is midline. Lines and tubes unchanged in position. Ill-defined patchy, predominantly central areas of minimal infiltrate involving each lung are similar in appearance to the prior study. No evidence of pneumothorax. IMPRESSION : Bilateral infiltrates and other findings are stable.
[2020-07-14] MEDS: NPH, Human Insulin Isophane 300 UNIT/3 ML VIAL SC SCH ×2 (08:57→21:58)
[2020-07-14] MEDS: Sodium Chloride 0.45% 1,000 ML IV SCH (09:03)
--- NOTE | 2020-07-14 09:06 | PRG ---
DATE OF SERVICE: 07/14/2020 A 30 minutes of critical care time. SUBJECTIVE: Mr. Harvey remains intubated on mechanical ventilation. We have been able to get his O2 down to 57%, his PEEP at 12, his O2 saturations are running in the mid to low 90s. OBJECTIVE: VITAL SIGNS: His temperature is 99.4, pulse 98, and blood pressure 132/65. Total intake for 24 hours has been 2215 and output 2735. HEENT: Unremarkable. NECK: No JVD. LUNGS: Diminished breath sounds in the bases. CARDIAC: S1 and S2. Regular. ABDOMEN: Soft. EXTREMITIES: Edematous. LABORATORY DATA: Sodium 152, potassium 4.9, chloride 121, CO2 of 24, BUN 62, creatinine 1.5, and glucose 139. White count 12.1, hematocrit 33.4, and platelet count 231. ASSESSMENT: 1. COVID-19 pneumonia with slightly improved oxygenation. 2. Acute respiratory failure requiring mechanical ventilation. 3. Acute renal failure with some evidence of recovery. 4. Diabetes mellitus with adequate control of blood sugars on current regimen. PLAN: In my opinion, he is probably safe to undergo tracheostomy at any time. He is currently on normal saline, but he is developing hypernatremia. Therefore, I will switch him over to half-normal saline for a day or 2. Job ID: [id number]
[2020-07-14] MEDS: Lorazepam 2 MG/ML VIAL SLOW IVP PRN ×2 (09:59→14:30)
[2020-07-14] MEDS: Insulin Regular 300 UNITS/3 ML VIAL SC PRN ×2 (11:09→22:06)
[2020-07-14] MEDS ORDERED: Fentanyl CADD 100 ML ONE (11:48)
[2020-07-14] MEDS: Multivitamins, Adult 10 ML in Sodium Chloride 0.9% 500 ML IV SCH (14:28)
--- NOTE | 2020-07-14 14:54 | PRG ---
DATE OF SERVICE: 07/14/2020 SUBJECTIVE: The patient was seen and examined in ICU, remains intubated. OBJECTIVE: GENERAL: This is a well-built male, intubated. VITAL SIGNS: Temperature 99.3, pulse 103, respiratory rate 20, and blood pressure 124/64. HEENT: Intubated. CV: S1 and S2 heard. RESPIRATORY: Clear. GASTROINTESTINAL: Abdomen is soft. MUSCULOSKELETAL: 1+ edema. NEUROLOGICAL: Intubated. LABORATORY DATA: Potassium 4.9, sodium is 152, BUN is 62, and creatinine is 1.5. ASSESSMENT AND PLAN: 1. Acute kidney injury on chronic kidney disease, stage 3. Labs are actually much better. Creatinine down to 1.5 from a peak of 3.2. 2. Hyperkalemia is better. 3. Hypernatremia. Started on half NS. If not better, consider D5 water and increase free water supplementation if tolerated. 4. COVID-19 pneumonia. 5. Acute hypoxic respiratory failure. 6. Edema. 7. Hypertension. Monitor labs. No acute indication for dialysis. We will follow. Job ID: [id number] [facility]
[2020-07-14] MEDS: Atorvastatin Calcium 10 MG TAB PO SCH (21:25)
[2020-07-14] MEDS: Pantoprazole 40 MG GRANULES PACKET PER TUBE SCH (21:25)
[2020-07-14] MEDS: Melatonin 3 MG TAB PO SCH (21:26)
[2020-07-15] MEDS: Propofol 1,000 MG/100 ML VIAL IV PRN ×3 (02:48→21:03)
[2020-07-15] MEDS: Sodium Chloride 0.45% 1,000 ML IV SCH (02:49)
[2020-07-15 03:52] LABS: #Eosinphils 0.1 thou/uL (0.0-0.7); #Lymphocytes 0.7 thou/uL (1.20-3.40); #Monocytes 0.9 thou/uL (0.11-0.59); #Neutrophils 11.2 thou/uL (1.40-6.50); %Basophils 0.2 % (0.0-1.0); %Lymphocytes 5.4 % (21.0-51.0); %Monocytes 6.8 % (0.0-10.0); %Neutrophils 86.6 % (42.0-75.0); Hemoglobin 10.8 g/dL (14.0-18.0); Mean Corpuscular HGB CONC 30.9 g/dL (32.0-36.0); Mean Corpuscular Hemoglobin 29.9 pg (27.0-31.0); Mean Corpuscular Volume 96.8 fL (78.0-98.0); Mean Platelet Volume 8.9 fL (7.4-10.4); Platelet Count 232 thou/uL (130-400); RBC Distribution Width 13.7 % (11.5-14.5); Red Blood Cell (RBC) Count 3.59 mill/uL (4.70-6.10); White Blood Cell (WBC) Count 12.9 thou/uL (4.8-10.8)
[2020-07-15 04:16] LABS: Anion Gap 12 mmol/L (10-20); BUN (Urea Nitrogen) 58 mg/dL (8.4-25.7); Calc. Creatinine Clearance 103 mL/min (70-130); Calcium 9.5 mg/dL (7.8-10.44); Carbon Dioxide 23 mmol/L (23-31); Chloride 120 mmol/L (98-107); Glucose 194 mg/dL (80-115); Potassium 4.9 mmol/L (3.5-5.1); Sodium 150 mmol/L (136-145)
--- NOTE | 2020-07-15 07:42 | RAD ---
Portable frontal chest radiograph: 07/15/2020 COMPARISON: 07/14/2020 HISTORY: Pneumonia FINDINGS: There is extensive interstitial and alveolar opacity bilaterally with a perihilar/bibasilar predominance, right greater than left, not significantly changed. Stable endotracheal tube and nasogastric tube. IMPRESSION: No significant interval change.
--- NOTE | 2020-07-15 08:01 | PRG ---
DATE OF SERVICE: 07/15/2020 Mr. Harvey remains in the intensive care unit. He remains sedated on the ventilator. His ventilator settings were changed from bilevel a couple of days ago and he has been stable with that. He had slightly improved oxygenation. He is still hypoxic on elevated oxygen. He is felt to be stable to undergo tracheostomy per his manager scheduling. He is therefore scheduled for his surgery today. Yesterday, I had a long conversation with his and son explaining the rationale, the procedure, the risks and benefits of tracheostomy and PEG tube placement. He understands and agreed to proceed. He is scheduled for his tracheostomy later today. He has been hemodynamically stable overnight. Job ID: [id number]
[2020-07-15] MEDS: Dexamethasone 4 mg/ml Vial SLOW IVP SCH (08:48)
[2020-07-15] MEDS: Aspirin Chewable 81 MG TAB PO SCH (08:56)
[2020-07-15] MEDS: Terazosin HCl 5 MG CAP PO SCH (08:57)
[2020-07-15] MEDS: Heparin 5,000 UNITS/ML VIAL SC SCH ×3 (08:57→21:03)
[2020-07-15] MEDS: Milk Of Magnesia 30 ML UDCUP PER TUBE SCH (08:57)
[2020-07-15] MEDS: NPH, Human Insulin Isophane 300 UNIT/3 ML VIAL SC SCH ×2 (08:57→21:29)
[2020-07-15] MEDS: Zinc Sulfate 220 MG CAP PO SCH (08:57)
[2020-07-15] MEDS ORDERED: Fentanyl 100 MCG/2 ML VIAL ONE (09:29)
--- NOTE | 2020-07-15 09:29 | PRG ---
DATE OF SERVICE: 07/15/2020 30 minutes of critical care time. SUBJECTIVE: The patient remains intubated on mechanical ventilation, but he is supposed to down to the OR for trach this morning. OBJECTIVE: VITAL SIGNS: Temperature 99, pulse 95, blood pressure 127/63, O2 saturation 92% on SIMV, rate 24, tidal volume 450, PEEP 12, FiO2 50%. HEENT: Unremarkable. NECK: No JVD. LUNGS: Coarse breath sounds. CARDIOVASCULAR: S1, S2. Regular. ABDOMEN: Soft. EXTREMITIES: Edematous. DIAGNOSTIC STUDIES: His chest x-ray shows diffuse bilateral infiltrates. LABORATORY DATA: White blood cell count 12.9, hematocrit 34.8, and platelet count 232. Sodium 150, potassium 4.9, chloride 120, CO2 of 23, BUN 58, creatinine 1.3, glucose 194. ASSESSMENT: 1. Acute respiratory failure, requiring mechanical ventilation. 2. COVID-19 pneumonia. 3. Acute renal failure with evidence of recovery. 4. Diabetes mellitus. PLAN: 1. Trach and PEG today. I think that will help us greatly in terms of weaning him from mechanical ventilation. 2. He has had 7 days of doxycycline, so I will go ahead and stop that. Job ID: [id number]
[2020-07-15] MEDS ORDERED: CEFAZOLIN 2 GM in Premix Bag 1 BAG IVPB SCH (09:30)
[2020-07-15] MEDS ORDERED: XYLOCAINE 2%-EPI 1:100,000 20 ML VIAL ONE (09:36)
[2020-07-15] MEDS ORDERED: Bupivacaine 0.25% HCL 30 ML VIAL ONE (09:36)
[2020-07-15] MEDS ORDERED: PROPOFOL 200 MG/20 ML VIAL ONE (09:48)
[2020-07-15] MEDS ORDERED: Ondansetron PF 4 MG/2 ML Vial ONE (09:48)
[2020-07-15] MEDS ORDERED: Rocuronium Bromide 10 MG/ML (10ML VIAL) ONE (09:48)
[2020-07-15] MEDS ORDERED: Lidocaine 1% PF 5 ML VIAL ONE (09:48)
[2020-07-15] MEDS ORDERED: Sodium Chloride 0.9% 20 ML ONE (10:25)
[2020-07-15] MEDS ORDERED: Albuterol Sulfate HFA (OR ONLY) ONE (10:34)
[2020-07-15] MEDS: Dextrose 5% in Water 1,000 ML IV SCH (12:25)
[2020-07-15] MEDS: Multivitamins, Adult 10 ML in Sodium Chloride 0.9% 500 ML IV SCH (14:00)
[2020-07-15] MEDS ORDERED: Fentanyl CADD 100 ML ONE (14:15)
[2020-07-15] MEDS: Lorazepam 2 MG/ML VIAL SLOW IVP PRN (15:18)
--- NOTE | 2020-07-15 16:06 | RAD ---
PORTABLE CHEST: Date: 07/15/2020 COMPARISON: Earlier exam same date. HISTORY: Tracheostomy tube placement. FINDINGS: Endotracheal and NG tubes have been removed. Tracheostomy tube is now in place. There is a left subcl ayla line present. Catheter tip overlies the superior vena cava. No signs of pneumothorax. Dense int erstitial alveolar lung changes again noted. IMPRESSION: Placement of tracheostomy tube. Left subclavian line seen with catheter tip overlying the superior ve na cava. No signs of pneumothorax. POS: JULIA
[2020-07-15] MEDS: Insulin Regular 300 UNITS/3 ML VIAL SC PRN (16:36)
--- NOTE | 2020-07-15 18:05 | PRG ---
DATE OF SERVICE: 07/15/2020 SUBJECTIVE: The patient is seen in ICU, he remains intubated. Plan to have a trach today. OBJECTIVE: GENERAL: This is a well-built male, intubated. VITAL SIGNS: Temperature 99.0, pulse 94, respiratory rate 25, blood pressure 120/63. HEENT: Intubated. CV: S1 and S2 heard. RESPIRATORY: Clear. GI: Abdomen is soft. MUSCULOSKELETAL: 1+ edema. NEUROLOGIC: Intubated. LABORATORY DATA: Sodium 150, potassium 4.9, BUN is 58, creatinine is 1.3. ASSESSMENT AND PLAN: 1. Acute kidney injury on chronic kidney disease, stage 3, much better. Monitor urine output. 2. Hypernatremia. We will change it to D5W. 3. Hyperkalemia, better. 4. COVID-19 pneumonia. 5. Acute hypoxic respiratory failure. 6. Edema, controlled. 7. History of hypertension. Labs are stable. Continue free water supplements for hypernatremia, and we will continue to follow. Job ID: [id number]
[2020-07-15] MEDS: Atorvastatin Calcium 10 MG TAB PO SCH (21:03)
[2020-07-15] MEDS: Melatonin 3 MG TAB PO SCH (21:04)
[2020-07-15] MEDS: Pantoprazole 40 MG GRANULES PACKET PER TUBE SCH (21:04)
--- NOTE | 2020-07-15 22:22 | OP ---
DATE OF PROCEDURE: 07/15/2020 PREOPERATIVE DIAGNOSIS: COVID-associated respiratory failure. POSTOPERATIVE DIAGNOSIS: COVID-associated respiratory failure. OPERATION PERFORMED: Tracheostomy placement, percutaneous endoscopic gastrostomy tube placement, left subclavian 7-Nigerien triple-lumen central line placement. ANESTHESIA: General endotracheal. INDICATIONS: Patient is a 70-year-old obese white male. He was admitted to the hospital back on June 20. He has currently been intubated for 11 days. He is felt to require tracheostomy to assist in any potential weaning from the ventilator. He is expected to require ongoing enteral support and percutaneous endoscopic gastrostomy tube is requested for this purpose. Finally, he has had a left femoral central line for about 3 weeks now and new central line placement is requested. DESCRIPTION OF OPERATION: Informed consent was obtained from his . He was taken to the operating room, where general endotracheal anesthesia was maintained with the patient in supine position. He maintains some degree of hypoxia in spite of fairly high concentration of alcohol, as he has in the intensive care unit. Neck was prepped with ChloraPrep and draped in sterile fashion. Local anesthetic was infiltrated using a mixture of 0.25% Marcaine and 1% lidocaine with epinephrine. Transverse incision was created. Dissection carried through skin and subcutaneous tissue. Platysma was incised. He had huge anterior jugular veins that were dissected and divided and ligated with silk suture. The strap muscles were in the midline. Dissection was carried down onto the trachea. A small portion of the inferior aspect of the isthmus was incised with cautery to enhance exposure. The second tracheal ring was identified and 3-0 Prolene stay sutures were placed on either side of midline. FiO2 that he was being administered was decreased down to 30% prior to incising the trachea. A small window of the second tracheal ring was removed. The opening was dilated as a #8 Shiley tracheostomy tube was placed uneventfully and the balloon was insufflated. The inner cannula was placed and a Tiburcio adapter was used to connect with the ventilator circuit. The retractors were removed. Skin edges were closed with interrupted sutures of 3-0 nylon; 2 of which were secured to the flange of the tracheostomy tube. Appropriate tracheostomy dressings and ties were placed. I then turned my attention to central line placement. With the patient in Trendelenburg position, the right chest wall was prepped. It was draped in sterile fashion. I was able to access what I believe was the right subclavian vein several times and due to his size (he is quite obese), I had the needle almost tubbed in order to access this vein. I could never advance the guidewire within the needle, however. I attempted several times. I ended up hitting the subclavian artery a couple of times. I then decided to change my focus to the left chest. The left chest was also prepped with ChloraPrep and draped in sterile fashion. On the left side, on the first attempt, I was easily able to access the left subclavian vein, pass a guidewire. The skin was incised, tract was dilated, 7-Nigerien triple-lumen catheter was placed. It was secured at skin exit site with 3-0 silk suture and sterile occlusive dressing was applied. Each of the 3 lumens aspirated blood freely and was flushed with sterile saline. Attention was then turned to the abdomen. The gastroscope was passed uneventfully down the esophagus. The stomach was insufflated. The pylorus was inspected and retroflexion was performed without finding of abnormality. I was easily able to visualize anterior abdominal wall inversion from within the gastric lumen. Appropriate area of the anterior abdominal wall was prepped with ChloraPrep and locally anesthetized. A small stab incision was created. Angiocath was passed within the gastric lumen. A guidewire was passed through the Angiocath. This was grasped using a snare. It was then attached to the tapered end of the PEG tube and the complex was pulled through the oropharynx out through the anterior abdominal wall in usual fashion. The internal mushroom was pulled snug against the gastric wall. The external flange was placed along with antibiotic ointment and a split gauze dressing. Tube connections were placed as well. Dressing was applied. There were no complications. Blood loss was minimal on any portion of the procedure, and he was taken back to the Intensive Care Unit on the ventilator, but in stable condition. Job ID: [id number]
[2020-07-16] MEDS: Propofol 1,000 MG/100 ML VIAL IV PRN ×4 (00:10→23:47)
[2020-07-16] MEDS: Insulin Regular 300 UNITS/3 ML VIAL SC PRN ×5 (00:25→15:50)
[2020-07-16 03:47] LABS: #Eosinphils 0.1 thou/uL (0.0-0.7); #Lymphocytes 0.7 thou/uL (1.20-3.40); #Monocytes 0.8 thou/uL (0.11-0.59); #Neutrophils 13.4 thou/uL (1.40-6.50); %Basophils 0.1 % (0.0-1.0); %Eosinophils 0.6 % (0.0-10.0); %Lymphocytes 4.9 % (21.0-51.0); %Monocytes 5.5 % (0.0-10.0); %Neutrophils 88.8 % (42.0-75.0); Hemoglobin 10.8 g/dL (14.0-18.0); Mean Corpuscular HGB CONC 30.4 g/dL (32.0-36.0); Mean Corpuscular Hemoglobin 29.9 pg (27.0-31.0); Mean Corpuscular Volume 98.1 fL (78.0-98.0); Mean Platelet Volume 8.8 fL (7.4-10.4); Platelet Count 255 thou/uL (130-400); RBC Distribution Width 13.7 % (11.5-14.5); Red Blood Cell (RBC) Count 3.62 mill/uL (4.70-6.10); White Blood Cell (WBC) Count 15.1 thou/uL (4.8-10.8)
[2020-07-16 04:15] LABS: Anion Gap 11 mmol/L (10-20); BUN (Urea Nitrogen) 57 mg/dL (8.4-25.7); Calc. Creatinine Clearance 112 mL/min (70-130); Calcium 9.4 mg/dL (7.8-10.44); Carbon Dioxide 25 mmol/L (23-31); Chloride 120 mmol/L (98-107); Glucose 212 mg/dL (80-115); Potassium 4.6 mmol/L (3.5-5.1); Sodium 151 mmol/L (136-145)
--- NOTE | 2020-07-16 07:01 | PRG ---
DATE OF SERVICE: 07/16/2020 SUBJECTIVE: Mr. Harvey's postoperative day #1 from tracheostomy, PEG tube placement, left subclavian central line placement. He is resting comfortably on the ventilator currently. He has had no events overnight. He appears to be oxygenating a little bit better today than he was yesterday (oxygen saturation is currently 95% on 55% FiO2). He is tolerating his tube feeds. OBJECTIVE: On examination, each of the 3 operative sites are appear to be healing appropriately with no evidence of bleeding or any problems. His abdomen is soft and nontender with bowel sounds. ASSESSMENT: He is stable following his surgery yesterday. He will continue to be managed by Pulmonary/Critical Care Medicine. I would be happy to assist again at any point that I have made. Otherwise, I will see him as needed. Job ID: [id number]
[2020-07-16] MEDS: NPH, Human Insulin Isophane 300 UNIT/3 ML VIAL SC SCH ×2 (08:18→21:21)
[2020-07-16] MEDS: Milk Of Magnesia 30 ML UDCUP PER TUBE SCH (08:18)
[2020-07-16] MEDS: Heparin 5,000 UNITS/ML VIAL SC SCH ×3 (08:18→21:18)
[2020-07-16] MEDS: Zinc Sulfate 220 MG CAP PO SCH (08:19)
[2020-07-16] MEDS: Dexamethasone 4 mg/ml Vial SLOW IVP SCH (08:19)
[2020-07-16] MEDS: Terazosin HCl 5 MG CAP PO SCH (08:19)
[2020-07-16] MEDS: Aspirin Chewable 81 MG TAB PO SCH (08:19)
--- NOTE | 2020-07-16 09:03 | RAD ---
PORTABLE CHEST: Date; 07/16/2020 HISTORY: Pneumonia follow-up. COMPARISON: 07/15/2020. FINDINGS/IMPRESSION: Tracheostomy device is noted. Central line overlies the SVC. There are bilateral diffuse alveolar infiltrates prominent in a perihilar distribution but present th roughout both lungs. No significant interval change. POS: AGW
--- NOTE | 2020-07-16 09:08 | PRG ---
DATE OF SERVICE: 07/16/2020 SUBJECTIVE: The patient underwent tracheostomy yesterday. He is actually fairly stable on mechanical ventilation. OBJECTIVE: VITAL SIGNS: Temperature 98.4, pulse 96, blood pressure 130/84, O2 saturation 92%. His current ventilator settings, he is on SIMV rate 24, tidal volume 450, PEEP 12, and a FiO2 of 50%. He continues to be sedated on propofol, but we had plans to lighten that today. His intake has been 2677, output 2720. HEENT: Unchanged. NECK: Trach in good position. LUNGS: Diminished breath sounds bilaterally. CARDIAC: S1, S2. Regular. ABDOMEN: Soft. EXTREMITIES: Edematous. LABORATORY DATA: Sodium 151, potassium 4.6, chloride 120, CO2 of 25, BUN 57, creatinine 1.2, glucose 212. White blood cell count 15.1, hematocrit 35.5, and platelet count 255. His x-ray shows persistent bilateral infiltrates. ASSESSMENT: 1. COVID-19 pneumonia. 2. Status post acute renal failure, requiring several sessions of dialysis, but he has not been dialyzed in quite some time. 3. Encephalopathy. 4. Severe neuromuscular weakness. 5. Diabetes mellitus. 6. Free water deficit/hypernatremia. PLAN: 1. I am going to try him on colchicine, but I will have to give him half the normal dose because of his kidney issues. 2. We will go ahead and give him some free water with his tube feeds. 3. I have instructed the nurse to try to lessen the sedation so that we can begin more vigorous weaning. Job ID: [id number]
[2020-07-16] MEDS: Dextrose 5% in Water 1,000 ML IV SCH ×2 (09:14→11:48)
[2020-07-16] MEDS: Multivitamins, Adult 10 ML in Sodium Chloride 0.9% 500 ML IV SCH (13:53)
--- NOTE | 2020-07-16 15:46 | PRG ---
DATE OF SERVICE: 07/16/2020 SUBJECTIVE: The patient is seen and examined in ICU. He has had a trach yesterday. OBJECTIVE: GENERAL: This is an elderly male, seen in ICU. VITAL SIGNS: Temperature 98.8, pulse 90, respiratory rate 26, blood pressure 127/63. HEENT: Atraumatic, normocephalic. NECK: Trach present. CV: S1 and S2 heard. RESPIRATORY: Clear. GI: Abdomen is soft. MUSCULOSKELETAL: 1+ edema. NEUROLOGIC: Sedated. LABORATORY DATA: Sodium 151, potassium 4.6, BUN is 57, creatinine is 1.18. ASSESSMENT AND PLAN: 1. Acute kidney injury on chronic kidney disease, stage 3, seems to be stable. 2. Hypernatremia. Continue free water supplementation. 3. Hyperkalemia. 4. COVID-19 pneumonia. 5. Acute hypoxic respiratory failure. 6. Edema. 7. History of hypertension. Monitor labs. Continue free water. Job ID: [id number]
[2020-07-16] MEDS: Atorvastatin Calcium 10 MG TAB PO SCH (21:18)
[2020-07-16] MEDS: Melatonin 3 MG TAB PO SCH (21:19)
[2020-07-16] MEDS: Pantoprazole 40 MG GRANULES PACKET PER TUBE SCH (21:19)
[2020-07-17] MEDS: Dextrose 5% in Water 1,000 ML IV SCH ×4 (01:46→18:29)
[2020-07-17 04:08] LABS: #Eosinphils 0.1 thou/uL (0.0-0.7); #Lymphocytes 0.8 thou/uL (1.20-3.40); #Monocytes 0.6 thou/uL (0.11-0.59); #Neutrophils 14.3 thou/uL (1.40-6.50); %Basophils 0.1 % (0.0-1.0); %Eosinophils 0.5 % (0.0-10.0); %Lymphocytes 5.2 % (21.0-51.0); %Monocytes 3.6 % (0.0-10.0); %Neutrophils 90.6 % (42.0-75.0); Hemoglobin 10.1 g/dL (14.0-18.0); Mean Corpuscular Hemoglobin 29.6 pg (27.0-31.0); Mean Corpuscular Volume 98.9 fL (78.0-98.0); Platelet Count 226 thou/uL (130-400); RBC Distribution Width 13.7 % (11.5-14.5); White Blood Cell (WBC) Count 15.8 thou/uL (4.8-10.8)
[2020-07-17 04:23] LABS: Anion Gap 10 mmol/L (10-20); BUN (Urea Nitrogen) 49 mg/dL (8.4-25.7); Calc. Creatinine Clearance 117 mL/min (70-130); Calcium 8.9 mg/dL (7.8-10.44); Carbon Dioxide 28 mmol/L (23-31); Chloride 116 mmol/L (98-107); Glucose 230 mg/dL (80-115); Potassium 4.3 mmol/L (3.5-5.1); Sodium 150 mmol/L (136-145)
[2020-07-17] MEDS: Propofol 1,000 MG/100 ML VIAL IV PRN ×2 (06:10→18:12)
[2020-07-17] MEDS: Heparin 5,000 UNITS/ML VIAL SC SCH ×3 (08:25→21:00)
[2020-07-17] MEDS: Terazosin HCl 5 MG CAP PO SCH (08:26)
[2020-07-17] MEDS: Zinc Sulfate 220 MG CAP PO SCH (08:26)
[2020-07-17] MEDS: Aspirin Chewable 81 MG TAB PO SCH (08:26)
[2020-07-17] MEDS: Dexamethasone 4 mg/ml Vial SLOW IVP SCH (08:26)
[2020-07-17] MEDS: Milk Of Magnesia 30 ML UDCUP PER TUBE SCH (08:26)
[2020-07-17] MEDS: NPH, Human Insulin Isophane 300 UNIT/3 ML VIAL SC SCH ×2 (08:26→21:02)
--- NOTE | 2020-07-17 08:54 | RAD ---
CHEST 1 VIEW: Date: 07/17/2020 INDICATION: History of pneumonia. COMPARISON: Prior exam dated 07/16/2020. IMPRESSION: Left-sided subclavian central venous catheter and tracheostomy tube unchanged. Bilateral pneumonia is stable. No pneumothorax is evident. POS: BH
[2020-07-17] MEDS: Colchicine 0.6 MG TAB PER TUBE SCH (09:12)
--- NOTE | 2020-07-17 11:58 | PRG ---
DATE OF SERVICE: 07/17/2020 SUBJECTIVE: The patient was seen and examined at bedside. He is on trach and PEG. OBJECTIVE: GENERAL: Elderly male, in no apparent distress. VITAL SIGNS: Temperature 97.3, pulse 89, respirations 20, blood pressure 136/63. HEENT: Atraumatic and normocephalic. CV: S1 and S2 heard. RESPIRATORY: Clear. GASTROINTESTINAL: Abdomen is soft. MUSCULOSKELETAL: 1+ edema. NEUROLOGIC: Sedated. LABORATORY DATA: Sodium 150, potassium 4.3, BUN is 49, creatinine is 1.12. ASSESSMENT AND PLAN: 1. Acute kidney injury on chronic kidney disease, stage 3. It seems renal function is stable. 2. Hypernatremia. We will increase free water. 3. Hyperkalemia, better. 4. COVID-19 pneumonia. 5. Acute hypoxic respiratory failure. 6. Edema. 7. Hypertension. Labs are stable. We will monitor. Continue free water. Job ID: [id number]
[2020-07-17] MEDS: Insulin Regular 300 UNITS/3 ML VIAL SC PRN ×2 (12:01→16:39)
[2020-07-17] MEDS: Multivitamins, Adult 10 ML in Sodium Chloride 0.9% 500 ML IV SCH (14:34)
[2020-07-17] MEDS: Lorazepam 2 MG/ML VIAL SLOW IVP PRN (15:35)
--- NOTE | 2020-07-17 16:11 | PDOC.HOSPP ---
- Subjective Encounter Date: 07/17/20 Encounter Time: 16:10 Subjective: f/u for - Objective Vital Signs & Weight: Vital Signs (12 hours) Temp Pulse Resp BP Pulse Ox 07/17/20 15:05 88 125/62 07/17/20 14:00 24 H 07/17/20 12:00 98.7 F 24 H 07/17/20 11:01 85 115/57 L 07/17/20 10:00 24 H 07/17/20 08:00 24 H 07/17/20 07:44 88 133/65 07/17/20 07:41 97 07/17/20 07:00 97.3 F L 07/17/20 06:00 24 H Weight Admit Weight 290 lb 12.8 oz Weight 291 lb 10.745 oz Most Recent Monitor Data Heart Rate from ECG 89 NIBP 125/62 NIBP BP-Mean 83 Respiration from ECG 23 SpO2 97 I&O: 07/16/20 07/17/20 07/18/20 06:59 06:59 06:59 Intake Total 2677 5103 100 Output Total 2720 2560 995 Balance -43 2543 -895 Result Diagrams: 07/17/20 03:50 07/17/20 03:50 Additional Labs: Accuchecks 07/17/20 07/17/20 07/17/20 11:57 05:28 00:53 POC Glucose 254 H 183 H 193 H 07/16/20 20:10 POC Glucose 151 H Hospitalist ROS - Medication Medications: Active Medications Generic Name Dose Route Start Last Admin Trade Name Freq PRN Reason Stop Dose Admin Acetaminophen 1,000 mg 06/29/20 08:00 07/13/20 19:31 Acetaminophen 500 Mg Tab PO 1,000 mg QID PRN Administration PAIN (1-5) / TEMP >100 F Aspirin 81 mg 06/21/20 09:00 07/17/20 08:26 Aspirin Chewable 81 Mg Tab PO 81 mg DAILY SHEN Administration Atorvastatin Calcium 10 mg 06/20/20 21:00 07/16/20 21:18 Atorvastatin Calcium 10 Mg Tab PO 10 mg HS SHEN Administration Colchicine 0.6 mg 07/17/20 09:00 07/17/20 09:12 Colchicine 0.6 Mg Tab PER TUBE 0.6 mg DAILY SHEN Administration Dexamethasone 3 mg 07/06/20 09:00 07/17/20 08:26 Dexamethasone 4 Mg/Ml Vial SLOW IVP 3 mg DAILY SHEN Administration Dextrose/Water 25 gm 06/20/20 17:45 07/12/20 05:11 Dextrose 50% Abboject 50 Ml Syringe IVP 25 gm PRN PRN Administration HYPOGLYCEMIA PROTOCOL Heparin Sodium (Porcine) 5,000 units 07/07/20 09:00 07/17/20 14:31 Heparin 5,000 Units/Ml Vial SC 5,000 units TID SHEN Administration Multivitamins 10 ml/ Sodium 510 mls @ 85 mls/hr 07/03/20 14:00 07/17/20 14:34 Chloride IV 510 mls 1400 SHEN Administration Fentanyl 100 mls @ 0 mls/hr 07/04/20 11:45 07/12/20 21:19 Fentanyl Cadd IV 08/03/20 11:45 100 mls INF SHEN Administration Protocol Per Protocol Dextrose/Water 1,000 mls @ 125 mls/hr 07/17/20 10:40 07/17/20 11:49 D5w IV 1,000 mls .Q8H SHEN Administration Insulin Human Regular 0 units 07/02/20 08:00 07/17/20 12:01 Insulin Regular 300 Units/3 Ml Vial SC 4 units .MODERATE SLIDING SC PRN Administration MODERATE SLIDING SCALE Protocol Lorazepam 2 mg 07/04/20 11:45 07/17/20 15:35 Lorazepam 2 Mg/Ml Vial SLOW IVP 08/03/20 11:45 2 mg Q1H PRN Administration Breakthrough agitation Magnesium Hydroxide 30 ml 07/08/20 09:00 07/17/20 08:26 Milk Of Magnesia 30 Ml Udcup PER TUBE 30 ml DAILY SHEN Administration Melatonin 9 mg 06/23/20 21:00 07/16/20 21:19 Melatonin 3 Mg Tab PO Not Given HS SHEN Pantoprazole Sodium 40 mg 07/14/20 21:00 07/16/20 21:19 Pantoprazole 40 Mg Granules Packet PER TUBE 40 mg 2100 SHEN Administration Propofol 1,000 mg 07/04/20 11:45 07/17/20 06:10 Propofol 1,000 Mg/100 Ml Vial IV 08/03/20 11:45 1,000 mg INF PRN Administration TO ACHIEVE GOAL RASS Protocol Terazosin HCl 5 mg 06/23/20 09:00 07/17/20 08:26 Terazosin Hcl 5 Mg Cap PO 5 mg DAILY SHEN Administration Vecuronium [place] 10 mg 07/05/20 10:06 07/10/20 02:05 Vecuronium 10 Mg Vial IVP 10 mg Q30MIN PRN Administration Agitation Zinc Sulfate 220 mg 06/21/20 09:00 07/17/20 08:26 Zinc Sulfate 220 Mg Cap PO 220 mg DAILY SHEN Administration Hospitalist Exam Vitals: Vital Signs (12 hours) Temp Pulse Resp BP Pulse Ox 07/17/20 15:05 88 125/62 07/17/20 14:00 24 H 07/17/20 12:00 98.7 F 24 H 07/17/20 11:01 85 115/57 L 07/17/20 10:00 24 H 07/17/20 08:00 24 H 07/17/20 07:44 88 133/65 07/17/20 07:41 97 07/17/20 07:00 97.3 F L 07/17/20 06:00 24 H Weight Admit Weight 290 lb 12.8 oz Weight 291 lb 10.745 oz Most Recent Monitor Data Heart Rate from ECG 89 NIBP 125/62 NIBP BP-Mean 83 Respiration from ECG 23 SpO2 97
--- NOTE | 2020-07-17 17:14 | PRG ---
DATE OF SERVICE: 07/17/2020 SUBJECTIVE: Evgeny Harvey remains mechanically ventilated. OBJECTIVE: VITAL SIGNS: Heart rate is 88, blood pressure 125/62, respiratory rates in the 20s, FiO2 is at 50%. LUNGS: Remarkable for coarse equal breath sounds. HEART: Regular rate and rhythm. ABDOMEN: Soft. EXTREMITIES: Without edema. LABORATORY DATA: White count 15.8, hemoglobin 10.1, platelets 226. Sodium 150, potassium 4.3, chloride 116, bicarb 28, BUN 49, creatinine 1.12. Chest radiograph is unchanged. IMPRESSION: 1. COVID pneumonia with respiratory failure. 2. Acute renal failure, not requiring dialysis now. 3. Encephalopathy. 4. Critical illness myopathy. 5. Diabetes. PLAN: We will continue with supportive care. Job ID: [id number]
[2020-07-17] MEDS: Melatonin 3 MG TAB PO SCH (20:52)
[2020-07-17] MEDS: Pantoprazole 40 MG GRANULES PACKET PER TUBE SCH (21:01)
[2020-07-17] MEDS: Atorvastatin Calcium 10 MG TAB PO SCH (21:01)
[2020-07-18] MEDS: Dextrose 5% in Water 1,000 ML IV SCH ×3 (03:07→12:16)
[2020-07-18 03:51] LABS: #Eosinphils 0.1 thou/uL (0.0-0.7); #Lymphocytes 0.7 thou/uL (1.20-3.40); #Monocytes 0.7 thou/uL (0.11-0.59); #Neutrophils 16.6 thou/uL (1.40-6.50); %Basophils 0.1 % (0.0-1.0); %Eosinophils 0.5 % (0.0-10.0); %Lymphocytes 4.1 % (21.0-51.0); %Monocytes 3.6 % (0.0-10.0); %Neutrophils 91.6 % (42.0-75.0); Hemoglobin 9.8 g/dL (14.0-18.0); Mean Corpuscular HGB CONC 30.2 g/dL (32.0-36.0); Mean Corpuscular Hemoglobin 29.7 pg (27.0-31.0); Mean Corpuscular Volume 98.2 fL (78.0-98.0); Mean Platelet Volume 9.2 fL (7.4-10.4); Platelet Count 220 thou/uL (130-400); RBC Distribution Width 13.5 % (11.5-14.5); Red Blood Cell (RBC) Count 3.28 mill/uL (4.70-6.10); White Blood Cell (WBC) Count 18.1 thou/uL (4.8-10.8)
[2020-07-18 04:11] LABS: Anion Gap 9 mmol/L (10-20); BUN (Urea Nitrogen) 41 mg/dL (8.4-25.7); Calc. Creatinine Clearance 144 mL/min (70-130); Calcium 9.1 mg/dL (7.8-10.44); Carbon Dioxide 29 mmol/L (23-31); Chloride 111 mmol/L (98-107); Glucose 185 mg/dL (80-115); Sodium 145 mmol/L (136-145)
--- NOTE | 2020-07-18 08:10 | RAD ---
CHEST 1 VIEW: Date: 07/18/2020 INDICATION: History of pneumonia. COMPARISON: Prior exam dated 07/17/2020. IMPRESSION: Bilateral pneumonia is stable. Left-sided subclavian central venous catheter and tracheostomy tube ar e unchanged. No pneumothorax is evident. Costophrenic angle is excluded. POS: BH
[2020-07-18] MEDS: Terazosin HCl 5 MG CAP PO SCH (10:02)
[2020-07-18] MEDS: Aspirin Chewable 81 MG TAB PO SCH (10:02)
[2020-07-18] MEDS: Zinc Sulfate 220 MG CAP PO SCH (10:02)
[2020-07-18] MEDS: Dexamethasone 4 mg/ml Vial SLOW IVP SCH (10:03)
[2020-07-18] MEDS: Heparin 5,000 UNITS/ML VIAL SC SCH ×3 (10:03→21:36)
[2020-07-18] MEDS: Milk Of Magnesia 30 ML UDCUP PER TUBE SCH (10:03)
[2020-07-18] MEDS: Propofol 1,000 MG/100 ML VIAL IV PRN (10:04)
[2020-07-18] MEDS: NPH, Human Insulin Isophane 300 UNIT/3 ML VIAL SC SCH ×3 (10:53→21:38)
[2020-07-18] MEDS: Colchicine 0.6 MG TAB PER TUBE SCH (11:26)
--- NOTE | 2020-07-18 12:42 | PRG ---
DATE OF SERVICE: 07/18/2020 SUBJECTIVE: The patient was seen and examined at bedside. He is on trach. OBJECTIVE: GENERAL: This is an elderly male, in no apparent distress. VITAL SIGNS: Temperature 99.0, pulse 77, respiratory rate 24, and blood pressure 125/65. HEENT: Atraumatic, normocephalic. CV: S1 and S2 heard. RESPIRATORY: Clear. GI: Abdomen is soft. MUSCULOSKELETAL: 1+ edema. NEUROLOGIC: Not responding. LABORATORY DATA: Sodium 145, creatinine is 0.9. ASSESSMENT AND PLAN: 1. Acute kidney injury on chronic kidney disease, stage 3. Renal function is stable. 2. Hypernatremia, much better. Continue on free water. We will reduce free water to 50 mL an hour. Monitor sodium closely. 3. Hyperkalemia, better. 4. COVID-19. 5. Acute hypoxic respiratory failure. 6. Edema. 7. Hypertension. Labs are much better. I will sign off. Please call back with any questions. Currently, on D5 water at 50 mL/hour. Monitor labs closely and please call back with any questions. Job ID: [id number]
[2020-07-18] MEDS: Lorazepam 2 MG/ML VIAL SLOW IVP PRN (13:55)
[2020-07-18] MEDS: Multivitamins, Adult 10 ML in Sodium Chloride 0.9% 500 ML IV SCH (14:44)
--- NOTE | 2020-07-18 15:05 | PRG ---
DATE OF SERVICE: 07/18/2020 SUBJECTIVE: Mr. Harvey remains ventilated. OBJECTIVE: VITAL SIGNS: Respiratory rates in the 20s. FiO2 is 50. Blood pressure 123/58, heart rate is in the 90s. LUNGS: Remarkable for clear breath sounds. HEART: Regular rhythm. ABDOMEN: Soft. LABORATORY DATA: White count 18.1, hemoglobin 9.8, platelets 220. Sodium 145, potassium 4, chloride 111, bicarb 29, BUN 41, creatinine 0.9. IMPRESSION: 1. Respiratory failure secondary to COVID. 2. Encephalopathy. 3. Critical illness myopathy. 4. Diabetes. PLAN: Continue supportive care with eventual placement. Job ID: [id number]
[2020-07-18] MEDS ORDERED: Furosemide 40 MG/4 ML VIAL IVP SCH (15:16)
[2020-07-18] MEDS: Atorvastatin Calcium 10 MG TAB PO SCH (21:36)
[2020-07-18] MEDS: Pantoprazole 40 MG GRANULES PACKET PER TUBE SCH (21:37)
[2020-07-18] MEDS: Melatonin 3 MG TAB PO SCH (21:37)
[2020-07-18] MEDS: Insulin Regular 300 UNITS/3 ML VIAL SC PRN (23:04)
[2020-07-19] MEDS: Propofol 1,000 MG/100 ML VIAL IV PRN ×2 (00:32→14:46)
[2020-07-19 04:10] LABS: #Eosinphils 0.1 thou/uL (0.0-0.7); #Lymphocytes 0.8 thou/uL (1.20-3.40); #Monocytes 0.7 thou/uL (0.11-0.59); #Neutrophils 17.9 thou/uL (1.40-6.50); %Basophils 0.1 % (0.0-1.0); %Eosinophils 0.5 % (0.0-10.0); %Lymphocytes 3.9 % (21.0-51.0); %Monocytes 3.4 % (0.0-10.0); %Neutrophils 92.2 % (42.0-75.0); Hemoglobin 9.9 g/dL (14.0-18.0); Mean Corpuscular HGB CONC 31.3 g/dL (32.0-36.0); Mean Corpuscular Hemoglobin 30.2 pg (27.0-31.0); Mean Corpuscular Volume 96.6 fL (78.0-98.0); Mean Platelet Volume 9.4 fL (7.4-10.4); Platelet Count 229 thou/uL (130-400); RBC Distribution Width 13.5 % (11.5-14.5); Red Blood Cell (RBC) Count 3.27 mill/uL (4.70-6.10); White Blood Cell (WBC) Count 19.4 thou/uL (4.8-10.8)
[2020-07-19 04:28] LABS: Anion Gap 12 mmol/L (10-20); BUN (Urea Nitrogen) 43 mg/dL (8.4-25.7); Calc. Creatinine Clearance 0 mL/min (70-130); Calcium 8.8 mg/dL (7.8-10.44); Carbon Dioxide 31 mmol/L (23-31); Chloride 106 mmol/L (98-107); Glucose 189 mg/dL (80-115); Potassium 3.6 mmol/L (3.5-5.1); Sodium 145 mmol/L (136-145)
--- NOTE | 2020-07-19 08:24 | RAD ---
EXAM: Single view of the chest HISTORY: Pneumonia COMPARISON: 07/18/2020 FINDINGS: Single view of the chest shows an enlarged but stable cardiomediastinal silhouette. The tr acheostomy and central venous catheter are unchanged in position. Scattered stable multifocal infiltrates are seen in the lungs. Degenerative changes are seen in the spine. IMPRESSION: Multifocal infiltrates
--- NOTE | 2020-07-19 09:43 | PRG ---
DATE OF SERVICE: 07/19/2020 SUBJECTIVE: The patient remains on mechanical ventilation-bilevel with a FiO2 of about 45%. He is on propofol, fairly heavily sedated. OBJECTIVE: HEENT: Unchanged. NECK: Tracheostomy in good position. LUNGS: Coarse breath sounds. CARDIAC: S1 and S2. Regular. ABDOMEN: Soft. EXTREMITIES: Edematous. LABORATORY DATA: White blood cell count 19, hematocrit 31.6, and platelet count 229. Sodium 145, potassium 3.6, chloride 106, CO2 of 31, BUN 43, creatinine 0.9, glucose 108. X-ray looks somewhat improved. ASSESSMENT: 1. COVID-19 pneumonia. 2. Acute hypoxic respiratory failure requiring mechanical ventilation. 3. Status post renal failure, requiring dialysis. 4. Critical illness myopathy/neuropathy. 5. Diabetes mellitus. PLAN: This will be a prolonged wean. Right now, he is on bilevel ventilation because of high airway pressures. I believe that he is ready to go to an LTAC at any time to continue this weaning process. He continues on insulin, colchicine, and steroids. Prognosis remains very poor. Job ID: [id number]
[2020-07-19] MEDS: Terazosin HCl 5 MG CAP PO SCH (11:22)
[2020-07-19] MEDS: Dexamethasone 4 mg/ml Vial SLOW IVP SCH (11:23)
[2020-07-19] MEDS: Milk Of Magnesia 30 ML UDCUP PER TUBE SCH (11:23)
[2020-07-19] MEDS: Aspirin Chewable 81 MG TAB PO SCH (11:23)
[2020-07-19] MEDS: Heparin 5,000 UNITS/ML VIAL SC SCH ×3 (11:23→22:55)
[2020-07-19] MEDS: Colchicine 0.6 MG TAB PER TUBE SCH (11:23)
[2020-07-19] MEDS: Zinc Sulfate 220 MG CAP PO SCH (11:24)
[2020-07-19] MEDS: Dextrose 5% in Water 1,000 ML IV SCH (12:10)
[2020-07-19] MEDS: NPH, Human Insulin Isophane 300 UNIT/3 ML VIAL SC SCH (12:12)
[2020-07-19] MEDS: Lorazepam 2 MG/ML VIAL SLOW IVP PRN (12:23)
[2020-07-19] MEDS: Multivitamins, Adult 10 ML in Sodium Chloride 0.9% 500 ML IV SCH (14:46)
[2020-07-19] MEDS ORDERED: Furosemide 40 MG/4 ML VIAL SLOW IVP SCH (17:45)
[2020-07-19] MEDS: Albumin 25% 25 GM/100 ML BOT IVPB SCH (18:20)
[2020-07-19] MEDS: Pantoprazole 40 MG GRANULES PACKET PER TUBE SCH (21:57)
[2020-07-19] MEDS: Atorvastatin Calcium 10 MG TAB PO SCH (21:57)
[2020-07-19] MEDS: Melatonin 3 MG TAB PO SCH (21:57)
[2020-07-19] MEDS: Insulin Regular 300 UNITS/3 ML VIAL SC PRN (22:06)
[2020-07-20] MEDS: Albumin 25% 25 GM/100 ML BOT IVPB SCH ×4 (00:15→17:41)
[2020-07-20] MEDS: NPH, Human Insulin Isophane 300 UNIT/3 ML VIAL SC SCH ×3 (00:16→21:34)
[2020-07-20] MEDS: Propofol 1,000 MG/100 ML VIAL IV PRN ×2 (04:14→16:36)
[2020-07-20 04:52] LABS: #Eosinphils 0.1 thou/uL (0.0-0.7); #Lymphocytes 0.7 thou/uL (1.20-3.40); #Monocytes 0.5 thou/uL (0.11-0.59); #Neutrophils 15.1 thou/uL (1.40-6.50); %Basophils 0.1 % (0.0-1.0); %Eosinophils 0.5 % (0.0-10.0); %Lymphocytes 4.5 % (21.0-51.0); %Monocytes 3.1 % (0.0-10.0); %Neutrophils 91.8 % (42.0-75.0); Hemoglobin 9.2 g/dL (14.0-18.0); Mean Corpuscular HGB CONC 32.3 g/dL (32.0-36.0); Mean Corpuscular Hemoglobin 30.8 pg (27.0-31.0); Mean Corpuscular Volume 95.5 fL (78.0-98.0); Mean Platelet Volume 9.3 fL (7.4-10.4); Platelet Count 209 thou/uL (130-400); RBC Distribution Width 13.5 % (11.5-14.5); Red Blood Cell (RBC) Count 2.99 mill/uL (4.70-6.10); White Blood Cell (WBC) Count 16.5 thou/uL (4.8-10.8)
[2020-07-20 05:14] LABS: Anion Gap 12 mmol/L (10-20); BUN (Urea Nitrogen) 41 mg/dL (8.4-25.7); Calc. Creatinine Clearance 156 mL/min (70-130); Calcium 8.9 mg/dL (7.8-10.44); Carbon Dioxide 35 mmol/L (23-31); Chloride 102 mmol/L (98-107); Glucose 167 mg/dL (80-115); Potassium 3.4 mmol/L (3.5-5.1); Sodium 146 mmol/L (136-145)
--- NOTE | 2020-07-20 08:04 | RAD ---
RADIOGRAPH CHEST 1 VIEW: DATE: 07/20/2020 TIME: 4:05 AM HISTORY: 70-year-old male follow-up pneumonia COMPARISON: 07/19/2020 FINDINGS: Diffuse mixed interstitial and alveolar infiltrates, right worse than left. Tracheostomy tube and left subclavian central venous catheter. No pneumothorax. No interval change IMPRESSION: No interval change in bilateral pneumonia
[2020-07-20] MEDS ORDERED: Docusate 100 MG CAP PO SCH (09:00)
[2020-07-20] MEDS: Heparin 5,000 UNITS/ML VIAL SC SCH ×3 (09:15→21:36)
[2020-07-20] MEDS: Colchicine 0.6 MG TAB PER TUBE SCH (09:15)
[2020-07-20] MEDS: Terazosin HCl 5 MG CAP PO SCH (09:15)
[2020-07-20] MEDS: Milk Of Magnesia 30 ML UDCUP PER TUBE SCH (09:15)
[2020-07-20] MEDS: Aspirin Chewable 81 MG TAB PO SCH (09:15)
[2020-07-20] MEDS: Zinc Sulfate 220 MG CAP PO SCH (09:15)
[2020-07-20] MEDS: Dexamethasone 4 mg/ml Vial SLOW IVP SCH (09:16)
--- NOTE | 2020-07-20 09:24 | PRG ---
DATE OF SERVICE: 07/20/2020 SUBJECTIVE: Mr. Harvey remains on mechanical ventilation. He is very dyssynchronous with the ventilator. He is using accessory muscles. OBJECTIVE: VITAL SIGNS: Temperature 98.9, pulse 110, blood pressure 155/65, O2 saturation 99%. 24-hour intake 3009, output 2970. HEENT: Unchanged. NECK: Trach in good position. LUNGS: Coarse breath sounds. CARDIAC: S1, S2. Regular. ABDOMEN: Soft. EXTREMITIES: Edematous. LABORATORY DATA: White blood cell count 16, hematocrit 28.6, platelet count 209. Sodium 146, potassium 3.4, chloride 102, CO2 of 35, BUN 41, creatinine 0.8, glucose 167. Chest x-ray shows no change. ASSESSMENT: 1. COVID-19 pneumonia. 2. Acute hypoxic respiratory failure requiring mechanical ventilation and tracheostomy. 3. Severe neuromuscular weakness. 4. Mild hypernatremia. 5. Previous renal failure. PLAN: Did some minor ventilator adjustments including lowering his respiratory rate and changing his inspiratory time. He needs LTAC placement for rehabilitation. His prognosis remains quite poor. Job ID: [id number]
[2020-07-20] MEDS: Lorazepam 2 MG/ML VIAL SLOW IVP PRN (09:50)
[2020-07-20] MEDS: Docusate Sodium 100 MG/10 ML UDCUP PO SCH ×2 (09:55→21:33)
[2020-07-20] MEDS: Dextrose 5% in Water 1,000 ML IV SCH (12:11)
[2020-07-20] MEDS: Multivitamins, Adult 10 ML in Sodium Chloride 0.9% 500 ML IV SCH (13:01)
[2020-07-20] MEDS: Insulin Regular 300 UNITS/3 ML VIAL SC PRN ×2 (13:54→16:36)
[2020-07-20] MEDS: Pantoprazole 40 MG GRANULES PACKET PER TUBE SCH (21:34)
[2020-07-20] MEDS: Atorvastatin Calcium 10 MG TAB PO SCH (21:37)
[2020-07-21] MEDS: Albumin 25% 25 GM/100 ML BOT IVPB SCH ×4 (00:36→17:25)
[2020-07-21] MEDS: Melatonin 3 MG TAB PO SCH ×2 (01:05→20:23)
[2020-07-21] MEDS: NPH, Human Insulin Isophane 300 UNIT/3 ML VIAL SC SCH ×2 (01:06→21:53)
[2020-07-21 04:44] LABS: #Eosinphils 0.2 thou/uL (0.0-0.7); #Lymphocytes 0.6 thou/uL (1.20-3.40); #Monocytes 0.3 thou/uL (0.11-0.59); #Neutrophils 12.1 thou/uL (1.40-6.50); %Eosinophils 1.2 % (0.0-10.0); %Lymphocytes 4.8 % (21.0-51.0); %Monocytes 2.1 % (0.0-10.0); %Neutrophils 91.9 % (42.0-75.0); Hemoglobin 8.4 g/dL (14.0-18.0); Mean Corpuscular HGB CONC 31.2 g/dL (32.0-36.0); Mean Corpuscular Hemoglobin 30.4 pg (27.0-31.0); Mean Corpuscular Volume 97.5 fL (78.0-98.0); Mean Platelet Volume 9.7 fL (7.4-10.4); Platelet Count 197 thou/uL (130-400); RBC Distribution Width 14.2 % (11.5-14.5); Red Blood Cell (RBC) Count 2.76 mill/uL (4.70-6.10); White Blood Cell (WBC) Count 13.1 thou/uL (4.8-10.8)
[2020-07-21 05:03] LABS: Anion Gap 9 mmol/L (10-20); BUN (Urea Nitrogen) 38 mg/dL (8.4-25.7); Calc. Creatinine Clearance 0 mL/min (70-130); Calcium 9.3 mg/dL (7.8-10.44); Carbon Dioxide 37 mmol/L (23-31); Chloride 103 mmol/L (98-107); Glucose 159 mg/dL (80-115); Potassium 3.3 mmol/L (3.5-5.1); Sodium 146 mmol/L (136-145)
[2020-07-21] MEDS: Propofol 1,000 MG/100 ML VIAL IV PRN ×3 (05:47→20:55)
--- NOTE | 2020-07-21 08:48 | RAD ---
ONE VIEW CHEST: COMPARISON: 07/20/2020. HISTORY: Pneumonia followup. FINDINGS: Stable left-sided central venous catheter and tracheostomy. Stable multilobar interstitial and alveo lar opacities. IMPRESSION: Stable multilobar pneumonia. POS: PPP
[2020-07-21] MEDS: Colchicine 0.6 MG TAB PER TUBE SCH (08:53)
[2020-07-21] MEDS: Dexamethasone 4 mg/ml Vial SLOW IVP SCH (08:53)
[2020-07-21] MEDS: Aspirin Chewable 81 MG TAB PO SCH (08:53)
[2020-07-21] MEDS: Terazosin HCl 5 MG CAP PO SCH (08:54)
[2020-07-21] MEDS: Zinc Sulfate 220 MG CAP PO SCH (08:54)
[2020-07-21] MEDS: Docusate Sodium 100 MG/10 ML UDCUP PO SCH ×2 (08:54→20:23)
[2020-07-21] MEDS: Milk Of Magnesia 30 ML UDCUP PER TUBE SCH (08:54)
[2020-07-21] MEDS: Heparin 5,000 UNITS/ML VIAL SC SCH ×3 (08:54→20:22)
[2020-07-21] MEDS ORDERED: Potassium Chloride 20 MEQ TAB PER TUBE SCH (09:15)
--- NOTE | 2020-07-21 09:30 | PRG ---
DATE OF SERVICE: 07/21/2020 SUBJECTIVE: The patient remains on mechanical ventilation through a tracheostomy. There had been no acute changes in the situation overnight. OBJECTIVE: VITAL SIGNS: His temperature is 99.3, pulse 95, blood pressure 128/70, O2 saturation 97%. He is on 80% FiO2 on bilevel ventilation. Neurologically, he is sedated on propofol because he gets agitated. HEENT: Unremarkable. NECK: Trach in good position. LUNGS: Coarse breath sounds. CARDIAC: S1 and S2. Regular. ABDOMEN: Soft. EXTREMITIES: Edematous. LABORATORY DATA: Sodium 146, potassium 3.3, chloride 103, CO2 of 37, BUN 38, creatinine 0.8, glucose 159. White blood cell count 13, hematocrit 26.9, and platelet count 197. ASSESSMENT: 1. Pneumonia. 2. Acute hypoxic respiratory failure requiring mechanical ventilation. 3. Severe neuromuscular weakness. 4. Mild hypernatremia. 5. Hypokalemia. 6. Previous renal failure. PLAN: At this time, weaning appears to be a prolonged process. I would suggest LTAC placement. The family is hesitant to move forward with that. The patient will have his potassium replaced. His dialysis catheter was removed yesterday. We have tried a decrease of his FiO2, but I am not sure he will tolerate. Job ID: [id number]
[2020-07-21] MEDS: Insulin Regular 300 UNITS/3 ML VIAL SC PRN ×2 (11:57→17:01)
[2020-07-21] MEDS: Dextrose 5% in Water 1,000 ML IV SCH ×2 (11:57→17:52)
[2020-07-21] MEDS: Multivitamins, Adult 10 ML in Sodium Chloride 0.9% 500 ML IV SCH (14:12)
[2020-07-21] MEDS: Lorazepam 2 MG/ML VIAL SLOW IVP PRN (19:29)
[2020-07-21] MEDS: Morphine 2 MG/ML VIAL SLOW IVP PRN ×2 (20:03→20:11)
[2020-07-21] MEDS: Atorvastatin Calcium 10 MG TAB PO SCH (20:23)
[2020-07-21] MEDS: Pantoprazole 40 MG GRANULES PACKET PER TUBE SCH (20:33)
--- NOTE | 2020-07-21 21:05 | RAD ---
Portable frontal chest radiograph: 07/21/2020 COMPARISON: 07/21/2020 HISTORY: Respiratory distress FINDINGS: Stable tracheostomy tube and left subclavian vascular catheter. Heart and mediastinal conto urs are unchanged. Extensive interstitial and alveolar opacity noted throughout both lungs, right greater than left, not significantly changed. IMPRESSION: No significant interval change.
[2020-07-22] MEDS: NPH, Human Insulin Isophane 300 UNIT/3 ML VIAL SC SCH ×2 (01:48→20:26)
[2020-07-22] MEDS: Propofol 1,000 MG/100 ML VIAL IV PRN (03:19)
[2020-07-22 04:57] LABS: #Eosinphils 0.1 thou/uL (0.0-0.7); #Lymphocytes 0.7 thou/uL (1.20-3.40); #Monocytes 0.6 thou/uL (0.11-0.59); #Neutrophils 11.6 thou/uL (1.40-6.50); %Basophils 0.1 % (0.0-1.0); %Monocytes 4.9 % (0.0-10.0); Hemoglobin 8.5 g/dL (14.0-18.0); Mean Corpuscular HGB CONC 31.5 g/dL (32.0-36.0); Mean Corpuscular Hemoglobin 30.7 pg (27.0-31.0); Mean Corpuscular Volume 97.6 fL (78.0-98.0); Mean Platelet Volume 10.1 fL (7.4-10.4); Platelet Count 197 thou/uL (130-400); RBC Distribution Width 14.4 % (11.5-14.5); Red Blood Cell (RBC) Count 2.75 mill/uL (4.70-6.10); White Blood Cell (WBC) Count 13.1 thou/uL (4.8-10.8)
[2020-07-22 05:15] LABS: Anion Gap 11 mmol/L (10-20); BUN (Urea Nitrogen) 39 mg/dL (8.4-25.7); Calc. Creatinine Clearance 143 mL/min (70-130); Calcium 9.4 mg/dL (7.8-10.44); Carbon Dioxide 37 mmol/L (23-31); Chloride 101 mmol/L (98-107); Glucose 211 mg/dL (80-115); Potassium 3.8 mmol/L (3.5-5.1); Sodium 145 mmol/L (136-145)
[2020-07-22] MEDS: Insulin Regular 300 UNITS/3 ML VIAL SC PRN ×5 (06:56→20:26)
--- NOTE | 2020-07-22 08:26 | RAD ---
PORTABLE CHEST: INDICATION: Pneumonia followup. COMPARISON: 07/21/2020. FINDINGS: Tracheostomy device is again noted. Bilateral diffuse alveolar infiltrates throughout both lungs sug gesting ARDS-type picture. No significant interval change. POS: AGW
[2020-07-22] MEDS: Colchicine 0.6 MG TAB PER TUBE SCH (08:46)
[2020-07-22] MEDS: Aspirin Chewable 81 MG TAB PO SCH (08:46)
[2020-07-22] MEDS: Docusate Sodium 100 MG/10 ML UDCUP PO SCH ×2 (08:47→21:55)
[2020-07-22] MEDS: Milk Of Magnesia 30 ML UDCUP PER TUBE SCH (08:47)
[2020-07-22] MEDS: Terazosin HCl 5 MG CAP PO SCH (08:47)
[2020-07-22] MEDS: Dexamethasone 4 mg/ml Vial SLOW IVP SCH (08:47)
[2020-07-22] MEDS: Zinc Sulfate 220 MG CAP PO SCH (08:47)
[2020-07-22] MEDS: Heparin 5,000 UNITS/ML VIAL SC SCH ×3 (08:48→20:26)
[2020-07-22] MEDS: Multivits W-Minerals Liquid 5 ML UDCUP PER TUBE SCH (08:53)
[2020-07-22] MEDS ORDERED: Fentanyl CADD 100 ML ONE (09:28)
[2020-07-22] MEDS: Fentanyl CADD 100 ML IV SCH (09:31)
--- NOTE | 2020-07-22 09:32 | PRG ---
DATE OF SERVICE: 07/22/2020 SUBJECTIVE: The patient remains on mechanical ventilation through a trach for COVID-19 pneumonia. He is still requiring bilevel ventilation with FiO2 of about 75% to 80% at times. He is very tachypneic even on propofol. OBJECTIVE: VITAL SIGNS: Temperature 98.8, pulse 100, blood pressure 120/68. HEENT: Unchanged. NECK: Trach in good position. LUNGS: Coarse breath sounds. CARDIAC: S1 and S2. Slightly tachycardic. ABDOMEN: Obese, soft, nontender. EXTREMITIES: No edema. Profound muscle wasting. LABORATORY DATA: Sodium 145, potassium 3.8, chloride 101, CO2 of 37, BUN 39, creatinine 0.9, glucose 211. White blood cell count 13, hematocrit 26.9, and platelet count 197. ASSESSMENT: 1. Coronavirus disease 2019 pneumonia with persistent acute hypoxic respiratory failure requiring mechanical ventilation. 2. Failure to thrive. PLAN: 1. Changed to Versed drip. 2. Increase nutrition to compensate for the loss of calories from discontinuation of propofol. 3. All other parameter seems stable. Spoken with numerous times. Anticipate LTAC placement soon. Job ID: [id number]
[2020-07-22] MEDS: Dextrose 5% in Water 1,000 ML IV SCH (18:24)
[2020-07-22] MEDS: Pantoprazole 40 MG GRANULES PACKET PER TUBE SCH (20:25)
[2020-07-22] MEDS: Melatonin 3 MG TAB PO SCH (20:25)
[2020-07-22] MEDS: Atorvastatin Calcium 10 MG TAB PO SCH (20:25)
[2020-07-23 04:42] LABS: #Eosinphils 0.1 thou/uL (0.0-0.7); #Lymphocytes 0.6 thou/uL (1.20-3.40); #Monocytes 0.7 thou/uL (0.11-0.59); #Neutrophils 11.8 thou/uL (1.40-6.50); %Basophils 0.3 % (0.0-1.0); %Eosinophils 0.8 % (0.0-10.0); %Lymphocytes 4.6 % (21.0-51.0); %Monocytes 5.4 % (0.0-10.0); Hemoglobin 8.5 g/dL (14.0-18.0); Mean Corpuscular HGB CONC 30.6 g/dL (32.0-36.0); Mean Corpuscular Hemoglobin 30.1 pg (27.0-31.0); Mean Corpuscular Volume 98.5 fL (78.0-98.0); Mean Platelet Volume 9.9 fL (7.4-10.4); Platelet Count 201 thou/uL (130-400); RBC Distribution Width 14.6 % (11.5-14.5); White Blood Cell (WBC) Count 13.2 thou/uL (4.8-10.8)
[2020-07-23 05:04] LABS: BUN (Urea Nitrogen) 45 mg/dL (8.4-25.7); Calc. Creatinine Clearance 153 mL/min (70-130); Calcium 9.2 mg/dL (7.8-10.44); Glucose 175 mg/dL (80-115)
[2020-07-23 05:13] LABS: Anion Gap 10 mmol/L (10-20); Carbon Dioxide 39 mmol/L (23-31); Chloride 99 mmol/L (98-107); Sodium 144 mmol/L (136-145)
[2020-07-23] MEDS: Insulin Regular 300 UNITS/3 ML VIAL SC PRN ×5 (05:25→20:18)
--- NOTE | 2020-07-23 07:59 | PRG ---
DATE OF SERVICE: 07/23/2020 35 minutes critical time. SUBJECTIVE: The patient remains on mechanical ventilation through a tracheostomy. Unfortunately, he is still requiring high amounts of sedation with fentanyl and Versed. He is currently on bilevel ventilation. His sedimentation rate is 14, but he is breathing about 34 times a minute. His usual tidal volumes are around 400 mL, but spontaneous tidal volumes are 318, FiO2 of 70%. His high PEEP pressure is 36, low PEEP pressure is 10. OBJECTIVE: VITAL SIGNS: His temperature is 99.6, pulse 98, blood pressure 135/65, O2 saturation 97%. Total intake for 24 hours 2384, output 2450. HEENT: Oral mucous membranes are dry. NECK: No JVD. LUNGS: Coarse rhonchi bilaterally. CARDIOVASCULAR: S1 and S2. Regular. ABDOMEN: Soft, obese. PEG tube in place. EXTREMITIES: No clubbing, cyanosis. He has muscle wasting throughout. LABORATORY DATA: Blood sugars generally running in the high 100s to low 200s. Sodium 144, potassium 4, chloride 99, CO2 of 39, BUN 45, creatinine 0.8, glucose 175. White blood cell count 13.2, hematocrit 27.6, and platelet count 201. His x-ray continues to show bilateral infiltrates consistent with non-resolved COVID pneumonia. ASSESSMENT: 1. COVID pneumonia, now on hospital day #33. 2. Acute hypoxic respiratory failure requiring mechanical ventilation. Tracheostomy and feeding tube placement. 3. Generalized failure to thrive. 4. Increasing bicarbonate level indicative of worsening gas exchange, i.e. the patient's pCO2 is probably elevated, but up until the last few days or so we have been unable to check blood gases regularly due to a shortage of ABG cartridges. PLAN: 1. I do not think there is much hope for Mr. Harvey to survive this illness. His , however, is going to continue to push for continued measures. 2. Continue anticoagulation. 3. Continue colchicine. 4. I will go ahead and wean his Decadron dose down by a milligram. 5. Continue enteral tube feeds. 6. I will increase his NPH insulin because of continued hyperglycemia. Dr. Bui will be covering for us this weekend. Please call with questions. Job ID: [id number]
--- NOTE | 2020-07-23 08:52 | RAD ---
PORTABLE CHEST: Date: 07/23/2020 HISTORY: Pneumonia and CCU follow-up. On ventilator. COMPARISON: 07/22/2020. FINDINGS/IMPRESSION: Tracheostomy device remains in place. Diffuse bilateral interstitial and alveolar infiltrates are seen throughout both lungs. Findings appe ar more extensive on the right. There has been no significant interval change in the appearance of th e chest. POS: AGW
[2020-07-23] MEDS: Milk Of Magnesia 30 ML UDCUP PER TUBE SCH (09:20)
[2020-07-23] MEDS: Colchicine 0.6 MG TAB PER TUBE SCH (09:20)
[2020-07-23] MEDS: Aspirin Chewable 81 MG TAB PO SCH (09:20)
[2020-07-23] MEDS: Heparin 5,000 UNITS/ML VIAL SC SCH ×3 (09:21→20:10)
[2020-07-23] MEDS: Dexamethasone 4 mg/ml Vial SLOW IVP SCH (09:21)
[2020-07-23] MEDS: Docusate Sodium 100 MG/10 ML UDCUP PO SCH ×2 (09:22→20:11)
[2020-07-23] MEDS: Zinc Sulfate 220 MG CAP PO SCH (09:22)
[2020-07-23] MEDS: Multivits W-Minerals Liquid 5 ML UDCUP PER TUBE SCH (09:22)
[2020-07-23] MEDS: Terazosin HCl 5 MG CAP PO SCH (09:23)
[2020-07-23] MEDS: NPH, Human Insulin Isophane 300 UNIT/3 ML VIAL SC SCH ×2 (09:23→20:17)
[2020-07-23] MEDS: Dextrose 5% in Water 1,000 ML IV SCH (13:24)
[2020-07-23] MEDS: Acetaminophen 500 MG TAB PO PRN (16:22)
[2020-07-23] MEDS: Melatonin 3 MG TAB PO SCH (20:11)
[2020-07-23] MEDS: Pantoprazole 40 MG GRANULES PACKET PER TUBE SCH (20:11)
[2020-07-23] MEDS: Atorvastatin Calcium 10 MG TAB PO SCH (20:11)
[2020-07-24] MEDS: Insulin Regular 300 UNITS/3 ML VIAL SC PRN ×4 (01:45→12:01)
[2020-07-24 04:23] LABS: #Eosinphils 0.1 thou/uL (0.0-0.7); #Lymphocytes 0.7 thou/uL (1.20-3.40); #Monocytes 0.8 thou/uL (0.11-0.59); #Neutrophils 12.5 thou/uL (1.40-6.50); %Eosinophils 0.4 % (0.0-10.0); %Lymphocytes 4.9 % (21.0-51.0); %Monocytes 5.8 % (0.0-10.0); %Neutrophils 88.8 % (42.0-75.0); Hemoglobin 8.7 g/dL (14.0-18.0); Mean Corpuscular HGB CONC 30.2 g/dL (32.0-36.0); Mean Corpuscular Hemoglobin 30.1 pg (27.0-31.0); Mean Corpuscular Volume 99.6 fL (78.0-98.0); Mean Platelet Volume 9.7 fL (7.4-10.4); Platelet Count 208 thou/uL (130-400); White Blood Cell (WBC) Count 14.1 thou/uL (4.8-10.8)
[2020-07-24 04:43] LABS: BUN (Urea Nitrogen) 50 mg/dL (8.4-25.7); Calc. Creatinine Clearance 132 mL/min (70-130); Glucose 212 mg/dL (80-115)
[2020-07-24 04:52] LABS: Anion Gap 14 mmol/L (10-20); Carbon Dioxide 35 mmol/L (23-31); Chloride 98 mmol/L (98-107); Potassium 4.4 mmol/L (3.5-5.1); Sodium 143 mmol/L (136-145)
[2020-07-24] MEDS: Dextrose 5% in Water 1,000 ML IV SCH (08:58)
[2020-07-24] MEDS: Aspirin Chewable 81 MG TAB PO SCH (08:58)
[2020-07-24] MEDS: Zinc Sulfate 220 MG CAP PO SCH (08:58)
[2020-07-24] MEDS: Terazosin HCl 5 MG CAP PO SCH (08:58)
[2020-07-24] MEDS: Colchicine 0.6 MG TAB PER TUBE SCH (08:58)
[2020-07-24] MEDS: Multivits W-Minerals Liquid 5 ML UDCUP PER TUBE SCH (08:59)
[2020-07-24] MEDS: Docusate Sodium 100 MG/10 ML UDCUP PO SCH ×2 (08:59→20:48)
[2020-07-24] MEDS: Milk Of Magnesia 30 ML UDCUP PER TUBE SCH (08:59)
[2020-07-24] MEDS: Dexamethasone 4 mg/ml Vial SLOW IVP SCH (08:59)
[2020-07-24] MEDS: Heparin 5,000 UNITS/ML VIAL SC SCH ×3 (09:00→20:25)
[2020-07-24] MEDS: NPH, Human Insulin Isophane 300 UNIT/3 ML VIAL SC SCH ×2 (09:01→20:26)
[2020-07-24] MEDS ORDERED: Polyethylene Glycol 3350 17 GM Packet PER TUBE SCH (10:15)
--- NOTE | 2020-07-24 10:51 | RAD ---
SINGLE VIEW CHEST: Date: 07/24/2020 COMPARISON: 07/23/2020. HISTORY: Pneumonia. FINDINGS: Single view of the chest shows an enlarged but stable cardiomediastinal silhouette. The tracheostomy and central venous catheter are unchanged in position. There are stable scattered multilocal infiltra adrienne in the lungs. IMPRESSION: Stable multifocal pneumonia. POS: EAA
[2020-07-24] MEDS: Acetaminophen 500 MG TAB PO PRN (12:04)
--- NOTE | 2020-07-24 14:36 | PDOC.HOSPP ---
- Subjective Encounter Date: 07/24/20 Encounter Time: 14:34 Subjective: Mr. Harvey was seen today in follow-up of COVID pneumonia with respiratory failure. He is intubated, and non-responsive. - Objective Vital Signs & Weight: Vital Signs (12 hours) Temp Pulse Resp BP 07/24/20 12:00 100.9 F H 38 H 07/24/20 10:53 99 115/62 07/24/20 10:00 36 H 07/24/20 08:00 99.2 F 33 H 07/24/20 06:51 95 121/70 07/24/20 02:46 100 126/77 Weight Admit Weight 290 lb 12.8 oz Weight 290 lb 12.635 oz Most Recent Monitor Data Heart Rate from ECG 102 NIBP 99/51 NIBP BP-Mean 67 Respiration from ECG 34 SpO2 93 I&O: 07/23/20 07/24/20 07/25/20 06:59 06:59 06:59 Intake Total 2384.5 4223.5 600.5 Output Total 2450 2450 755 Balance -65.5 1773.5 -154.5 Result Diagrams: 07/24/20 03:40 07/24/20 03:40 Additional Labs: Accuchecks 07/24/20 07/24/20 07/23/20 11:57 08:02 20:14 POC Glucose 181 H 183 H 158 H 07/23/20 15:50 POC Glucose 206 H Hospitalist ROS - Medication Medications: Active Medications Generic Name Dose Route Start Last Admin Trade Name Freq PRN Reason Stop Dose Admin Acetaminophen 1,000 mg 06/29/20 08:00 07/24/20 12:04 Acetaminophen 500 Mg Tab PO 1,000 mg QID PRN Administration PAIN (1-5) / TEMP >100 F Aspirin 81 mg 06/21/20 09:00 07/24/20 08:58 Aspirin Chewable 81 Mg Tab PO 81 mg DAILY SHEN Administration Atorvastatin Calcium 10 mg 06/20/20 21:00 07/23/20 20:11 Atorvastatin Calcium 10 Mg Tab PO 10 mg HS SHEN Administration Colchicine 0.6 mg 07/17/20 09:00 07/24/20 08:58 Colchicine 0.6 Mg Tab PER TUBE 0.6 mg DAILY SHEN Administration Dexamethasone 2 mg 07/23/20 09:00 07/24/20 08:59 Dexamethasone 4 Mg/Ml Vial SLOW IVP 2 mg DAILY SHEN Administration Dextrose/Water 25 gm 06/20/20 17:45 07/12/20 05:11 Dextrose 50% Abboject 50 Ml Syringe IVP 25 gm PRN PRN Administration HYPOGLYCEMIA PROTOCOL Docusate Sodium 100 mg 07/20/20 09:00 07/24/20 08:59 Docusate Sodium 100 Mg/10 Ml Udcup PO 100 mg BID SHEN Administration Heparin Sodium (Porcine) 5,000 units 07/07/20 09:00 07/24/20 09:00 Heparin 5,000 Units/Ml Vial SC 5,000 units TID SHEN Administration Fentanyl 100 mls @ 0 mls/hr 07/04/20 11:45 07/22/20 09:31 Fentanyl Cadd IV 08/03/20 11:45 100 mls INF SHEN Administration Protocol Per Protocol Dextrose/Water 1,000 mls @ 50 mls/hr 07/18/20 11:06 07/24/20 08:58 D5w IV 1,000 mls .Q20H SHEN Administration Midazolam HCl 100 mls @ 0 mls/hr 07/22/20 09:15 07/24/20 12:19 Versed IVPB 100 mls INF SHEN Administration Protocol Titrate Insulin Human NPH 30 unit 07/23/20 09:00 07/24/20 09:01 Nph, Human Insulin Isophane 300 Unit/3 Ml Vial SC 30 unit BID SHEN Administration Insulin Human Regular 0 units 07/02/20 08:00 07/24/20 12:01 Insulin Regular 300 Units/3 Ml Vial SC 2 units .MODERATE SLIDING SC PRN Administration MODERATE SLIDING SCALE Protocol Iron/Minerals/Multivitamins 15 ml 07/22/20 09:00 07/24/20 08:59 Multivits W-Minerals Liquid 5 Ml Udcup PER TUBE 15 ml DAILY SHEN Administration Lorazepam 2 mg 07/04/20 11:45 07/21/20 19:29 Lorazepam 2 Mg/Ml Vial SLOW IVP 08/03/20 11:45 2 mg Q1H PRN Administration Breakthrough agitation Magnesium Hydroxide 30 ml 07/08/20 09:00 07/24/20 08:59 Milk Of Magnesia 30 Ml Udcup PER TUBE 30 ml DAILY SHEN Administration Melatonin 9 mg 06/23/20 21:00 02/12/21 20:11 Melatonin 3 Mg Tab PO 9 mg HS SHEN Administration Morphine Sulfate 2 mg 07/04/20 11:45 07/21/20 20:11 Morphine 2 Mg/Ml Vial SLOW IVP 08/03/20 11:45 2 mg Q1H PRN Administration Breakthrough Pain/Agitation Pantoprazole Sodium 40 mg 07/14/20 21:00 07/23/20 20:11 Pantoprazole 40 Mg Granules Packet PER TUBE 40 mg 2100 SHEN Administration Terazosin HCl 5 mg 06/23/20 09:00 07/24/20 08:58 Terazosin Hcl 5 Mg Cap PO 5 mg DAILY SHEN Administration Zinc Sulfate 220 mg 06/21/20 09:00 07/24/20 08:58 Zinc Sulfate 220 Mg Cap PO 220 mg DAILY SHEN Administration Hospitalist Exam Vitals: Vital Signs (12 hours) Temp Pulse Resp BP 07/24/20 12:00 100.9 F H 38 H 07/24/20 10:53 99 115/62 07/24/20 10:00 36 H 07/24/20 08:00 99.2 F 33 H 07/24/20 06:51 95 121/70 07/24/20 02:46 100 126/77 Weight Admit Weight 290 lb 12.8 oz Weight 290 lb 12.635 oz Most Recent Monitor Data Heart Rate from ECG 102 NIBP 99/51 NIBP BP-Mean 67 Respiration from ECG 34 SpO2 93 Eye: PERRL, anicteric sclera Heart: RRR, no murmur, no gallops, no rubs, normal peripheral pulses Respiratory: rales (at both bases) Gastrointestinal: soft, non-tender, non-distended, normal bowel sounds, no palpable masses, no hepatomegaly Extremities: no cyanosis (d.p. pulses are palpable, no lesions), 1+ LE edema Hosp A/P (1) Acute respiratory failure with hypoxemia Code(s): J96.01 - ACUTE RESPIRATORY FAILURE WITH HYPOXIA Status: Acute (2) Diabetes mellitus type 2 in nonobese Code(s): E11.9 - TYPE 2 DIABETES MELLITUS WITHOUT COMPLICATIONS Status: Chronic (3) Acute kidney injury Code(s): N17.9 - ACUTE KIDNEY FAILURE, UNSPECIFIED Status: Acute (4) Pneumonia due to COVID-19 virus Code(s): U07.1 - COVID-19; J12.82 - PNEUMONIA DUE TO CORONAVIRUS DISEASE 2019 Status: Acute - Plan * Acute respiratory failure with hypoxemia due to COVID pneumonia- he currently is requiring Bilevel Ventilatory support * Continue Decadron and DVT prophylaxis * DM- blood glucose is stable- continue the current insulin regimen, and SSI * ARLEN- resolved * Nutritional Support with Tube feeds * Patient has been hospitalized and requiring mechanical ventilation for a prolonged period. His prognosis is guarded
[2020-07-24] MEDS ORDERED: Furosemide 20 MG/2 ML VIAL SLOW IVP SCH (18:30)
--- NOTE | 2020-07-24 19:11 | PRG ---
DATE OF SERVICE: 07/24/2020 SUBJECTIVE: Mr. Harvey is a 70-year-old man, who was admitted on 06/20/2020 with acute COVID-19 pneumonia, which was complicated by acute renal and respiratory failures. He required temporary hemodialysis until his kidney function improved. Currently, he is on full mechanical ventilator support, requiring high PEEP. The patient is on fentanyl at 25 mcg/hour and midazolam at 2 mg/hour. He remains in deep coma. [place] Coma Scale is E1, M1, V1t. He is on no vasopressor or inotropic support. His urinary output remains adequate for his age. He is on tube feeds at goal and having bowel movements. OBJECTIVE: VITAL SIGNS: This morning on my visit includes blood pressure 115/61, pulse 99, respiratory rate 35 to 40, maximum temperature in last 24 hours is 100.9 degrees Fahrenheit, oxygen saturation is 93%, and he was on bilevel 36/10 this morning with FiO2 of 65%. HEENT: Pupils are equally round, reactive to light at 3 mm bilaterally. He has a corneal reflex. He has gag and cough reflexes present. He has no jugular venous distention noted. HEART: Reveals regular rate and rhythm. LUNGS: Reveals bilateral coarse rhonchi. The patient remains with tachypnea despite being on full mechanical ventilator support. EXTREMITIES: Reveal 2+ radial and pedal pulses bilaterally. MUSCULOSKELETAL: Reveals 1/5 muscle strength in bilateral upper and lower extremities. LABORATORY FINDINGS: Today include a CBC with 14,100 white blood cells, hemoglobin and hematocrit 8.7 and 28.9 respectively. Platelet count is 208,000. Metabolic profile: Sodium 143, potassium 4.4, chloride is 98, bicarb is 35, BUN is 50, creatinine is 1.0, glucose is 212. I have personally reviewed the chest x-ray obtained today, which at least reveals a mild cardiomegaly with bilateral pulmonary interstitial and alveolar infiltrates. There is no pneumothorax present. IMPRESSIONS: 1. Acute COVID-19 pneumonia. 2. Acute hypoxemic respiratory failure secondary to #1. 3. Resolved acute kidney injury. PLAN: Continue with full mechanical ventilator support. We will place the patient on pressure control ventilation and resume steep turning on the bed as the patient is not a good candidate for prone ventilation due to recent tracheostomy tube placement. We will continue to monitor his oxygen saturation and his work of breathing as endpoint of these ventilatory settings. We will ask Neurology to evaluate the patient and also order an EEG to rule out any seizure foci, which can account for this patient's neurological decline. Due to the severe respiratory failure with high peak airway pressures and the need for a high PEEP, the patient is not a candidate for transport to CT scan in order to evaluate his brain to rule out any acute intracranial process. We will decrease overall total fluid intake and monitor urinary output as endpoint of our resuscitation. Total critical care time is 35 minutes. Job ID: [id number]
[2020-07-24] MEDS ORDERED: Fentanyl CADD 100 ML ONE (19:19)
[2020-07-24] MEDS: Fentanyl CADD 100 ML IV SCH (19:23)
[2020-07-24] MEDS: Atorvastatin Calcium 10 MG TAB PO SCH (20:24)
[2020-07-24] MEDS: Melatonin 3 MG TAB PO SCH (20:25)
[2020-07-24] MEDS: Pantoprazole 40 MG GRANULES PACKET PER TUBE SCH (20:25)
[2020-07-25 04:39] LABS: #Eosinphils 0.1 thou/uL (0.0-0.7); #Lymphocytes 0.8 thou/uL (1.20-3.40); #Monocytes 0.9 thou/uL (0.11-0.59); #Neutrophils 12.6 thou/uL (1.40-6.50); %Basophils 0.1 % (0.0-1.0); %Eosinophils 0.7 % (0.0-10.0); %Lymphocytes 5.7 % (21.0-51.0); %Monocytes 5.9 % (0.0-10.0); %Neutrophils 87.6 % (42.0-75.0); Hemoglobin 8.5 g/dL (14.0-18.0); Mean Corpuscular HGB CONC 30.6 g/dL (32.0-36.0); Mean Corpuscular Hemoglobin 30.5 pg (27.0-31.0); Mean Corpuscular Volume 99.5 fL (78.0-98.0); Mean Platelet Volume 10.1 fL (7.4-10.4); Platelet Count 197 thou/uL (130-400); RBC Distribution Width 15.3 % (11.5-14.5); White Blood Cell (WBC) Count 14.4 thou/uL (4.8-10.8)
[2020-07-25 05:21] LABS: BUN (Urea Nitrogen) 49 mg/dL (8.4-25.7); Calc. Creatinine Clearance 159 mL/min (70-130); Calcium 8.9 mg/dL (7.8-10.44); Glucose 136 mg/dL (80-115); Magnesium 2.4 mg/dL (1.6-2.6); Phosphorus 1.8 mg/dL (2.3-4.7)
[2020-07-25 05:30] LABS: Anion Gap 14 mmol/L (10-20); Carbon Dioxide 39 mmol/L (23-31); Chloride 96 mmol/L (98-107); Potassium 4.3 mmol/L (3.5-5.1); Sodium 145 mmol/L (136-145)
[2020-07-25] MEDS ORDERED: Electrolyte Replacement Protocol FS PRN (06:30)
[2020-07-25] MEDS ORDERED: Potassium Phosphate 15 MMOL in Sodium Chloride 0.9% 100 ML IVPB SCH (06:30)
[2020-07-25] MEDS: Dextrose 5% in Water 1,000 ML IV SCH (07:35)
[2020-07-25] MEDS: Docusate Sodium 100 MG/10 ML UDCUP PO SCH ×2 (08:43→21:00)
[2020-07-25] MEDS: Colchicine 0.6 MG TAB PER TUBE SCH (08:43)
[2020-07-25] MEDS: Heparin 5,000 UNITS/ML VIAL SC SCH ×3 (08:43→21:00)
[2020-07-25] MEDS: Terazosin HCl 5 MG CAP PO SCH (08:43)
[2020-07-25] MEDS: Milk Of Magnesia 30 ML UDCUP PER TUBE SCH (08:43)
[2020-07-25] MEDS: Aspirin Chewable 81 MG TAB PO SCH (08:43)
[2020-07-25] MEDS: Polyethylene Glycol 3350 17 GM Packet PER TUBE SCH (08:43)
[2020-07-25] MEDS: Zinc Sulfate 220 MG CAP PO SCH (08:43)
[2020-07-25] MEDS: Dexamethasone 4 mg/ml Vial SLOW IVP SCH (08:44)
[2020-07-25] MEDS: NPH, Human Insulin Isophane 300 UNIT/3 ML VIAL SC SCH (08:48)
[2020-07-25] MEDS: Multivits W-Minerals Liquid 5 ML UDCUP PER TUBE SCH (08:53)
[2020-07-25] MEDS: Acetaminophen 500 MG TAB PO PRN (08:56)
--- NOTE | 2020-07-25 09:46 | PDOC.HOSPP ---
- Subjective Encounter Date: 07/25/20 Encounter Time: 09:44 Subjective: Mr. Harvey was seen today in follow-up of COVID pneumonia with respiratory failure. He is intubated on Bilevel ventilation. He is non-responsive. - Objective Vital Signs & Weight: Vital Signs (12 hours) Pulse 07/25/20 06:36 97 07/25/20 02:49 91 07/25/20 01:02 92 07/24/20 22:28 96 Weight Admit Weight 290 lb 12.8 oz Weight 290 lb 12.635 oz Most Recent Monitor Data Heart Rate from ECG 100 NIBP 143/72 NIBP BP-Mean 95 Respiration from ECG 33 SpO2 90 I&O: 07/24/20 07/25/20 07/26/20 06:59 06:59 06:59 Intake Total 4223.5 4095.5 Output Total 2450 3040 100 Balance 1773.5 1055.5 -100 Result Diagrams: 07/25/20 03:55 07/25/20 03:55 Additional Labs: Accuchecks 07/25/20 07/25/20 07/25/20 08:47 03:53 00:20 POC Glucose 118 H 134 H 138 H 07/24/20 07/24/20 07/24/20 20:21 16:30 11:57 POC Glucose 156 H 152 H 181 H Hospitalist ROS - Medication Medications: Active Medications Generic Name Dose Route Start Last Admin Trade Name Freq PRN Reason Stop Dose Admin Acetaminophen 1,000 mg 06/29/20 08:00 07/25/20 08:56 Acetaminophen 500 Mg Tab PO 1,000 mg QID PRN Administration PAIN (1-5) / TEMP >100 F Aspirin 81 mg 06/21/20 09:00 07/25/20 08:43 Aspirin Chewable 81 Mg Tab PO 81 mg DAILY SHEN Administration Atorvastatin Calcium 10 mg 06/20/20 21:00 07/24/20 20:24 Atorvastatin Calcium 10 Mg Tab PO 10 mg HS SHEN Administration Colchicine 0.6 mg 07/17/20 09:00 07/25/20 08:43 Colchicine 0.6 Mg Tab PER TUBE 0.6 mg DAILY SHEN Administration Dexamethasone 2 mg 07/23/20 09:00 07/25/20 08:44 Dexamethasone 4 Mg/Ml Vial SLOW IVP 2 mg DAILY SHEN Administration Dextrose/Water 25 gm 06/20/20 17:45 07/12/20 05:11 Dextrose 50% Abboject 50 Ml Syringe IVP 25 gm PRN PRN Administration HYPOGLYCEMIA PROTOCOL Docusate Sodium 100 mg 07/20/20 09:00 07/25/20 08:43 Docusate Sodium 100 Mg/10 Ml Udcup PO 100 mg BID SHEN Administration Heparin Sodium (Porcine) 5,000 units 07/07/20 09:00 07/25/20 08:43 Heparin 5,000 Units/Ml Vial SC 5,000 units TID SHEN Administration Fentanyl 100 mls @ 0 mls/hr 07/04/20 11:45 07/24/20 19:23 Fentanyl Cadd IV 08/03/20 11:45 100 mls INF SHEN Administration Protocol Per Protocol Midazolam HCl 100 mls @ 0 mls/hr 07/22/20 09:15 07/24/20 12:19 Versed IVPB 100 mls INF SHEN Administration Protocol Titrate Potassium Phosphate 15 mmol/ 105 mls @ 26.25 mls/hr 07/25/20 06:30 07/25/20 06:35 Sodium Chloride IVPB 07/25/20 10:29 105 mls NOW SHEN Administration Insulin Human NPH 30 unit 07/23/20 09:00 07/25/20 08:48 Nph, Human Insulin Isophane 300 Unit/3 Ml Vial SC 30 unit BID SHEN Administration Insulin Human Regular 0 units 07/02/20 08:00 07/24/20 12:01 Insulin Regular 300 Units/3 Ml Vial SC 2 units .MODERATE SLIDING SC PRN Administration MODERATE SLIDING SCALE Protocol Iron/Minerals/Multivitamins 15 ml 07/22/20 09:00 07/25/20 08:53 Multivits W-Minerals Liquid 5 Ml Udcup PER TUBE 15 ml DAILY SHEN Administration Lorazepam 2 mg 07/04/20 11:45 07/21/20 19:29 Lorazepam 2 Mg/Ml Vial SLOW IVP 08/03/20 11:45 2 mg Q1H PRN Administration Breakthrough agitation Magnesium Hydroxide 30 ml 07/08/20 09:00 07/25/20 08:43 Milk Of Magnesia 30 Ml Udcup PER TUBE 30 ml DAILY SHEN Administration Melatonin 9 mg 06/23/20 21:00 07/24/20 20:25 Melatonin 3 Mg Tab PO 9 mg HS SHEN Administration Morphine Sulfate 2 mg 07/04/20 11:45 07/21/20 20:11 Morphine 2 Mg/Ml Vial SLOW IVP 08/03/20 11:45 2 mg Q1H PRN Administration Breakthrough Pain/Agitation Pantoprazole Sodium 40 mg 07/14/20 21:00 07/24/20 20:25 Pantoprazole 40 Mg Granules Packet PER TUBE 40 mg 2100 SHEN Administration Polyethylene Glycol 30 gm 07/25/20 09:00 07/25/20 08:43 Polyethylene Glycol 3350 17 Gm Packet PER TUBE 30 gm DAILY SHEN Administration Sodium Chloride 10 ml 07/24/20 21:00 07/25/20 08:44 Flush - Normal Saline 10 Ml Syringe IVF 10 ml Q12HR SHEN Administration Terazosin HCl 5 mg 06/23/20 09:00 07/25/20 08:43 Terazosin Hcl 5 Mg Cap PO 5 mg DAILY SHEN Administration Zinc Sulfate 220 mg 06/21/20 09:00 07/25/20 08:43 Zinc Sulfate 220 Mg Cap PO 220 mg DAILY SHEN Administration Hospitalist Exam Vitals: Vital Signs (12 hours) Pulse 07/25/20 06:36 97 07/25/20 02:49 91 07/25/20 01:02 92 07/24/20 22:28 96 Weight Admit Weight 290 lb 12.8 oz Weight 290 lb 12.635 oz Most Recent Monitor Data Heart Rate from ECG 100 NIBP 143/72 NIBP BP-Mean 95 Respiration from ECG 33 SpO2 90 General Appearance: NAD, awake alert Eye: PERRL, anicteric sclera Heart: RRR, no murmur, no gallops, no rubs, normal peripheral pulses Respiratory: no wheezes, no ronchi, rales (at both bases) Gastrointestinal: soft, non-tender, non-distended, normal bowel sounds, no palpable masses, no hepatomegaly Extremities: no cyanosis (palpable d.p. pulses bilaterally no lesions), no edema Hosp A/P (1) Acute respiratory failure with hypoxemia Code(s): J96.01 - ACUTE RESPIRATORY FAILURE WITH HYPOXIA Status: Acute (2) Diabetes mellitus type 2 in nonobese Code(s): E11.9 - TYPE 2 DIABETES MELLITUS WITHOUT COMPLICATIONS Status: Chronic (3) Acute kidney injury Code(s): N17.9 - ACUTE KIDNEY FAILURE, UNSPECIFIED Status: Acute (4) Pneumonia due to COVID-19 virus Code(s): U07.1 - COVID-19; J12.82 - PNEUMONIA DUE TO CORONAVIRUS DISEASE 2019 Status: Acute - Plan * Acute respiratory failure with hypoxemia due to COVID pneumonia- he currently is requiring Bilevel Ventilatory support * Continue Decadron and DVT prophylaxis * DM- blood glucose is stable- continue the current insulin regimen, and SSI * Hypophosphatemia- replace * ARLEN- resolved * Nutritional Support with Tube feeds * EEG is being done ( due to the patient's lack of responsiveness ) * Patient has been hospitalized and requiring mechanical ventilation for a prolonged period. His prognosis is guarded
[2020-07-25] MEDS ORDERED: Furosemide 20 MG/2 ML VIAL SLOW IVP SCH (10:45)
[2020-07-25] MEDS ORDERED: Sodium Phosphate 15 MMOL in Sodium Chloride 0.9% 250 ML 250 ML IVPB SCH (10:45)
--- NOTE | 2020-07-25 11:24 | RAD ---
CHEST ONE VIEW: HISTORY: Follow up pneumonia. COMPARISON: 07/24/2020 FINDINGS/IMPRESSION: Stable life support tubes. Extensive bilateral pneumonia with some left costophrenic angle blunting. Overall stable examination. POS: RRE
--- NOTE | 2020-07-25 14:05 | CON ---
DATE OF CONSULTATION: 07/25/2020 IMPRESSION: Anoxic brain injury with a burst suppression pattern on EEG. This carries a hopeless prognosis. PLAN: Continue supportive measures until the family is willing to discontinue support. HISTORY OF PRESENT ILLNESS: Mr. Harvey is a 70-year-old man with a past history of diabetes. He presented nearly a little over a month ago with COVID symptoms. He subsequently developed progressive pulmonary failure and had to be intubated. He has also developed some renal failure. He has had persistent lethargy and not arousing to stimulation now for some time. A neurologic consultation was assessment. He had an EEG done this morning, which shows a burst suppression pattern. His lab work is otherwise showing some mild anemia with hematocrit of 27. D-dimers have been progressively elevated, the last one being 11. His blood gas shows an oxygen level of 47, a CO2 of 41, BUN of 44, and creatinine of 0.8. Blood glucoses have been in the mid 150s. Urinalysis shows some hematuria. PAST MEDICAL HISTORY: Diabetes. ALLERGIES: PER CHART. SOCIAL HISTORY: Unremarkable. FAMILY HISTORY: Unremarkable. REVIEW OF SYSTEMS: Not obtainable. PHYSICAL EXAMINATION: GENERAL: He is an overweight, middle-aged gentleman, on ventilatory support. VITAL SIGNS: Pulse 99, blood pressure 101/63, saturations 98%. HEENT: Pupils are equal in size, minimally reactive. His doll's head maneuver produces conjugate movement. He does have a corneal response. He has some gasping type movements of the mouth, slight cough. He had no peripheral pain response. No spontaneous movements were noted. Truncal pain did not elicit any posturing. SUMMARY: Clinical findings are that of severe anoxic brain injury. Burst suppression pattern carries a very poor prognosis for any type of functional recovery and chronic vegetative state is most likely. Job ID: [id number]
--- NOTE | 2020-07-25 14:45 | PRG ---
DATE OF SERVICE: 07/25/2020 SUBJECTIVE: Mr. Harvey is a 70-year-old man, admitted on 06/20/2020 with acute COVID-19 pneumonia. He is currently on full mechanical ventilator support for acute hypoxemic respiratory failure. He requires high PEEP. He remains on fentanyl at 25 mcg/hour as well as midazolam 2 mg/hour. He demonstrates [place] breathing pattern. He tolerates tube feeds at goal and is having bowel movements. His urinary output remains adequate for his age and weight. The patient is on no vasopressor or inotropic support. OBJECTIVE: VITAL SIGNS: Currently include blood pressure 111/63, pulse is 97, respiratory rate is 32, maximum temperature in last 24 hours 100.5 degrees Fahrenheit, oxygen saturation currently 96% on FiO2 of 60% on mechanical ventilator support. HEENT: Pupils are equal, round, reactive to light at 3 mm bilaterally. He has a positive cough and gag reflexes. [place] coma scale today is 3T. HEART: Reveals regular rate and rhythm. LUNGS: Reveal diffuse bilateral rhonchi. Breathing is tachypneic. ABDOMEN: Soft, nontender, and nondistended. EXTREMITIES: Reveal 2+ radial and pedal pulses bilaterally. No ankle edema is present. MUSCULOSKELETAL: Reveals 1/5 muscle strength in bilateral upper and lower extremities. LABORATORY FINDINGS: Include a CBC with 14,400 white blood cells, hemoglobin and hematocrit are 8.5 and 27.9 respectively. Platelet count is 297,000. Metabolic profile; sodium 145, potassium 4.3, chloride is 96, bicarb is 39, BUN is 49, creatinine is 0.83, glucose is 136, magnesium is 2.4, and phosphorus is 1.8. I have personally reviewed the chest x-ray obtained this morning and it shows persistent bilateral pulmonary interstitial and alveolar infiltrates. It has increasing perihilar markings. There is no cardiomegaly present. There is no pneumothorax present. There is a small left pleural effusion present. IMPRESSION: 1. Acute COVID-19 pneumonia. 2. Acute severe hypoxemic respiratory failure secondary to #1. 3. Acute hypophosphatemia. 4. [place] breathing pattern suspicious for acute brain injury. Specifics are undetermined at this time as we are unable to obtain a brain CT scan due to the patient's severe respiratory failure requiring high PEEP which would not be possible on a transport ventilator. PLAN: 1. Continue with full mechanical ventilator support. 2. Ask Neurology to evaluate the patient with an EEG to try to explain this patient's current breathing pattern. 3. Correct abnormal electrolytes. Above findings and plan was discussed with the patient's . I did inform her of this patient's grim prognosis and chance for meaningful recovery is quite low. She indicated understanding of the information provided to her in the presence of the patient's nurse. I did answer her questions. Total critical care time is 35 minutes. Job ID: [id number]
[2020-07-25] MEDS: Insulin Regular 300 UNITS/3 ML VIAL SC PRN (16:03)
[2020-07-25] MEDS: Melatonin 3 MG TAB PO SCH (21:00)
[2020-07-25] MEDS: Pantoprazole 40 MG GRANULES PACKET PER TUBE SCH (21:01)
[2020-07-25] MEDS: Atorvastatin Calcium 10 MG TAB PO SCH (21:01)
[2020-07-26] MEDS: NPH, Human Insulin Isophane 300 UNIT/3 ML VIAL SC SCH ×3 (00:29→22:30)
--- NOTE | 2020-07-26 11:20 | RAD ---
Portable frontal chest radiograph: 07/26/2020 COMPARISON: 07/25/2020 HISTORY: Pneumonia FINDINGS: Stable tracheostomy tube and right-sided vascular catheter. No pneumothorax is evident. No large volume pleural effusion. Extensive stable interstitial and alveolar opacity noted bilaterally. IMPRESSION: Stable appearance of the chest as detailed above.
--- NOTE | 2020-07-26 11:34 | CT ---
Head CT without contrast 07/26/2020: Comparison: None HISTORY: Pneumonia, possible stroke TECHNIQUE: Axial CT imaging at 2.5 mm intervals from vertex through skull base without contrast FINDINGS: There is complete opacification of the bilateral mastoid air cells and tympanic cavities. T here is mild mucosal thickening of bilateral sphenoid sinuses. There is no intracranial hemorrhage, midline shift, or mass effect. No ventricular enlargement is see n. No acute osseous abnormality is noted. IMPRESSION: No intracranial hemorrhage. If there is clinical concern for acute infarction, brain MRI is recommended. There is complete opacification of the tympanic cavities and mastoid air cells which could signify acute inflammatory/infectious change in the proper clinical setting.
--- NOTE | 2020-07-26 12:13 | PRG ---
DATE OF SERVICE: 07/26/2020 35 minutes critical care time. SUBJECTIVE: Mr. Harvey remains on mechanical ventilation through a tracheostomy. He has had no change in his clinical status over the weekend. OBJECTIVE: VITAL SIGNS: His temperature is 99.5, pulse 95, blood pressure 148/71, O2 saturation 98%, respiratory rate in the 30s. He is currently on bilevel inhalation rate 14, high pressure 28, low pressure 10, FiO2 of 70%. HEENT: Unchanged. NECK: No JVD. LUNGS: Inspiratory crackles bilaterally. CARDIOVASCULAR: S1 and S2. Regular. ABDOMEN: Soft and nontender. EXTREMITIES: Severe muscle wasting. LABORATORY DATA: No labs are back on this patient today. His x-ray is unchanged. ASSESSMENT: 1. COVID-19 pneumonia. 2. Acute hypoxic respiratory failure requiring mechanical ventilation. 3. Metabolic encephalopathy. PLAN: The patient remains in critical condition. It seems very unlikely that he is going to recover. He is a DNR, but the family is continuing to ask for supportive care. Of note, his EEG showed burst suppression pattern consistent with severe anoxic brain injury. Job ID: [id number]
--- NOTE | 2020-07-26 13:40 | PDOC.HOSPP ---
- Subjective Encounter Date: 07/26/20 Encounter Time: 13:38 Subjective: Mr. Harvey was seen today in follow-up of respiratory failure due to COVID pneumonia. He remains intubated, and he is not responsive. EEG results noted. - Objective Vital Signs & Weight: Weight Admit Weight 290 lb 12.8 oz Weight 290 lb 12.635 oz Most Recent Monitor Data Heart Rate from ECG 86 NIBP 141/68 NIBP BP-Mean 92 Respiration from ECG 34 SpO2 95 I&O: 07/25/20 07/26/20 07/27/20 06:59 06:59 06:59 Intake Total 4095.5 2469.5 Output Total 3040 1915 Balance 1055.5 554.5 Result Diagrams: 07/25/20 03:55 07/25/20 03:55 Additional Labs: Accuchecks 07/26/20 07/25/20 07/25/20 10:30 20:44 16:02 POC Glucose 141 H 127 H 168 H Hospitalist ROS - Medication Medications: Active Medications Generic Name Dose Route Start Last Admin Trade Name Freq PRN Reason Stop Dose Admin Acetaminophen 1,000 mg 06/29/20 08:00 07/25/20 08:56 Acetaminophen 500 Mg Tab PO 1,000 mg QID PRN Administration PAIN (1-5) / TEMP >100 F Aspirin 81 mg 06/21/20 09:00 07/25/20 08:43 Aspirin Chewable 81 Mg Tab PO 81 mg DAILY SHEN Administration Atorvastatin Calcium 10 mg 06/20/20 21:00 07/25/20 21:01 Atorvastatin Calcium 10 Mg Tab PO 10 mg HS SHEN Administration Colchicine 0.6 mg 07/17/20 09:00 07/25/20 08:43 Colchicine 0.6 Mg Tab PER TUBE 0.6 mg DAILY SHEN Administration Dexamethasone 2 mg 07/23/20 09:00 07/25/20 08:44 Dexamethasone 4 Mg/Ml Vial SLOW IVP 2 mg DAILY SHEN Administration Dextrose/Water 25 gm 06/20/20 17:45 07/12/20 05:11 Dextrose 50% Abboject 50 Ml Syringe IVP 25 gm PRN PRN Administration HYPOGLYCEMIA PROTOCOL Docusate Sodium 100 mg 07/20/20 09:00 07/25/20 21:00 Docusate Sodium 100 Mg/10 Ml Udcup PO 100 mg BID SHEN Administration Heparin Sodium (Porcine) 5,000 units 07/07/20 09:00 07/25/20 21:00 Heparin 5,000 Units/Ml Vial SC 5,000 units TID SHEN Administration Fentanyl 100 mls @ 0 mls/hr 07/04/20 11:45 07/24/20 19:23 Fentanyl Cadd IV 08/03/20 11:45 100 mls INF SHEN Administration Protocol Per Protocol Midazolam HCl 100 mls @ 0 mls/hr 07/22/20 09:15 07/24/20 12:19 Versed IVPB 100 mls INF SHEN Administration Protocol Titrate Insulin Human NPH 30 unit 07/23/20 09:00 07/26/20 00:29 Nph, Human Insulin Isophane 300 Unit/3 Ml Vial SC Not Given BID SHEN Insulin Human Regular 0 units 07/02/20 08:00 07/25/20 16:03 Insulin Regular 300 Units/3 Ml Vial SC 2 units .MODERATE SLIDING SC PRN Administration MODERATE SLIDING SCALE Protocol Iron/Minerals/Multivitamins 15 ml 07/22/20 09:00 07/25/20 08:53 Multivits W-Minerals Liquid 5 Ml Udcup PER TUBE 15 ml DAILY SHEN Administration Lorazepam 2 mg 07/04/20 11:45 07/21/20 19:29 Lorazepam 2 Mg/Ml Vial SLOW IVP 08/03/20 11:45 2 mg Q1H PRN Administration Breakthrough agitation Magnesium Hydroxide 30 ml 07/08/20 09:00 07/25/20 08:43 Milk Of Magnesia 30 Ml Udcup PER TUBE 30 ml DAILY SHEN Administration Melatonin 9 mg 06/23/20 21:00 07/25/20 21:00 Melatonin 3 Mg Tab PO 9 mg HS SHEN Administration Morphine Sulfate 2 mg 07/04/20 11:45 07/21/20 20:11 Morphine 2 Mg/Ml Vial SLOW IVP 08/03/20 11:45 2 mg Q1H PRN Administration Breakthrough Pain/Agitation Pantoprazole Sodium 40 mg 07/14/20 21:00 07/25/20 21:01 Pantoprazole 40 Mg Granules Packet PER TUBE 40 mg 2100 SHEN Administration Polyethylene Glycol 30 gm 07/25/20 09:00 07/25/20 08:43 Polyethylene Glycol 3350 17 Gm Packet PER TUBE 30 gm DAILY SHEN Administration Sodium Chloride 10 ml 07/24/20 21:00 07/25/20 21:01 Flush - Normal Saline 10 Ml Syringe IVF 10 ml Q12HR SHEN Administration Terazosin HCl 5 mg 06/23/20 09:00 07/25/20 08:43 Terazosin Hcl 5 Mg Cap PO 5 mg DAILY SHEN Administration Zinc Sulfate 220 mg 06/21/20 09:00 07/25/20 08:43 Zinc Sulfate 220 Mg Cap PO 220 mg DAILY SHEN Administration Hospitalist Exam Vitals: Weight Admit Weight 290 lb 12.8 oz Weight 290 lb 12.635 oz Most Recent Monitor Data Heart Rate from ECG 86 NIBP 141/68 NIBP BP-Mean 92 Respiration from ECG 34 SpO2 95 Eye: PERRL, anicteric sclera Heart: RRR, no murmur, no gallops, no rubs, normal peripheral pulses Respiratory: no wheezes, no ronchi, rales (at the bases) Gastrointestinal: soft, non-tender, non-distended, normal bowel sounds, no palpable masses, no hepatomegaly Extremities: no cyanosis (palpable d.p. pulses bilaterally), no edema Hosp A/P (1) Acute respiratory failure with hypoxemia Code(s): J96.01 - ACUTE RESPIRATORY FAILURE WITH HYPOXIA Status: Acute (2) Diabetes mellitus type 2 in nonobese Code(s): E11.9 - TYPE 2 DIABETES MELLITUS WITHOUT COMPLICATIONS Status: Chronic (3) Acute kidney injury Code(s): N17.9 - ACUTE KIDNEY FAILURE, UNSPECIFIED Status: Acute (4) Pneumonia due to COVID-19 virus Code(s): U07.1 - COVID-19; J12.82 - PNEUMONIA DUE TO CORONAVIRUS DISEASE 2019 Status: Acute - Plan * Acute respiratory failure with hypoxemia due to COVID pneumonia- he currently is requiring Bilevel Ventilatory support * Continue Decadron and DVT prophylaxis * EEG results noted. He has a Burst-suppression pattern, which indicates severe anoxic brain injury * DM- blood glucose is stable- continue the current insulin regimen, and SSI * Hypophosphatemia- replace * ARLEN- resolved * Nutritional Support with Tube feeds * Prognosis is guarded
[2020-07-26] MEDS: Aspirin Chewable 81 MG TAB PO SCH (14:38)
[2020-07-26] MEDS: Colchicine 0.6 MG TAB PER TUBE SCH (14:38)
[2020-07-26] MEDS: Dexamethasone 4 mg/ml Vial SLOW IVP SCH (14:38)
[2020-07-26] MEDS: Docusate Sodium 100 MG/10 ML UDCUP PO SCH ×2 (14:39→22:01)
[2020-07-26] MEDS: Heparin 5,000 UNITS/ML VIAL SC SCH ×2 (14:39→21:51)
[2020-07-26] MEDS: Milk Of Magnesia 30 ML UDCUP PER TUBE SCH (14:39)
[2020-07-26] MEDS: Multivits W-Minerals Liquid 5 ML UDCUP PER TUBE SCH (14:39)
[2020-07-26] MEDS: Polyethylene Glycol 3350 17 GM Packet PER TUBE SCH (14:40)
[2020-07-26] MEDS: Terazosin HCl 5 MG CAP PO SCH (14:40)
[2020-07-26] MEDS: Zinc Sulfate 220 MG CAP PO SCH (14:40)
[2020-07-26 14:46] LABS: BUN (Urea Nitrogen) 47 mg/dL (8.4-25.7); Calc. Creatinine Clearance 171 mL/min (70-130); Calcium 9.1 mg/dL (7.8-10.44); Chloride 94 mmol/L (98-107); Glucose 140 mg/dL (80-115); Potassium 4.1 mmol/L (3.5-5.1); Sodium 145 mmol/L (136-145)
[2020-07-26 14:50] LABS: Carbon Dioxide 41 mmol/L (23-31)
[2020-07-26 14:51] LABS: Anion Gap 14 mmol/L (10-20)
[2020-07-26] MEDS ORDERED: acetaZOLAMIDE Sodium 250 MG in Sodium Chloride 0.9% 50 ML IVPB SCH (18:30)
[2020-07-26 19:32] LABS: #Eosinphils 0.1 thou/uL (0.0-0.7); #Lymphocytes 0.7 thou/uL (1.20-3.40); #Monocytes 0.6 thou/uL (0.11-0.59); %Basophils 0.2 % (0.0-1.0); %Eosinophils 0.5 % (0.0-10.0); %Lymphocytes 5.3 % (21.0-51.0); %Monocytes 4.9 % (0.0-10.0); %Neutrophils 89.1 % (42.0-75.0); Hemoglobin 8.6 g/dL (14.0-18.0); Mean Corpuscular HGB CONC 30.3 g/dL (32.0-36.0); Mean Corpuscular Hemoglobin 30.4 pg (27.0-31.0); Mean Platelet Volume 10.7 fL (7.4-10.4); Platelet Count 188 thou/uL (130-400); RBC Distribution Width 15.4 % (11.5-14.5); Red Blood Cell (RBC) Count 2.82 mill/uL (4.70-6.10); White Blood Cell (WBC) Count 12.3 thou/uL (4.8-10.8)
[2020-07-26] MEDS: Melatonin 3 MG TAB PO SCH (21:52)
[2020-07-26] MEDS: Pantoprazole 40 MG GRANULES PACKET PER TUBE SCH (21:52)
[2020-07-26] MEDS: Atorvastatin Calcium 10 MG TAB PO SCH (22:20)
[2020-07-27 04:38] LABS: #Eosinphils 0.1 thou/uL (0.0-0.7); #Lymphocytes 0.6 thou/uL (1.20-3.40); #Monocytes 0.6 thou/uL (0.11-0.59); #Neutrophils 10.4 thou/uL (1.40-6.50); %Basophils 0.1 % (0.0-1.0); %Eosinophils 0.6 % (0.0-10.0); %Lymphocytes 5.2 % (21.0-51.0); %Monocytes 5.4 % (0.0-10.0); %Neutrophils 88.7 % (42.0-75.0); Hemoglobin 8.7 g/dL (14.0-18.0); Mean Corpuscular HGB CONC 30.7 g/dL (32.0-36.0); Mean Corpuscular Hemoglobin 30.4 pg (27.0-31.0); Mean Corpuscular Volume 99.1 fL (78.0-98.0); Mean Platelet Volume 10.2 fL (7.4-10.4); Platelet Count 191 thou/uL (130-400); RBC Distribution Width 15.6 % (11.5-14.5); Red Blood Cell (RBC) Count 2.86 mill/uL (4.70-6.10); White Blood Cell (WBC) Count 11.7 thou/uL (4.8-10.8)
[2020-07-27 04:57] LABS: BUN (Urea Nitrogen) 39 mg/dL (8.4-25.7); Calc. Creatinine Clearance 188 mL/min (70-130); Calcium 9.2 mg/dL (7.8-10.44); Glucose 122 mg/dL (80-115)
[2020-07-27 05:06] LABS: Anion Gap 15 mmol/L (10-20); Carbon Dioxide 39 mmol/L (23-31); Chloride 97 mmol/L (98-107); Sodium 147 mmol/L (136-145)
--- NOTE | 2020-07-27 08:05 | RAD ---
XR Chest 1 View Portable HISTORY: Follow-up Covid pneumonia COMPARISON: Prior day's exam. FINDINGS: Tracheostomy tube and left subclavian line are unchanged in position. Extensive interstitia l alveolar lung changes are stable. IMPRESSION: Stable exam.
[2020-07-27] MEDS: acetaZOLAMIDE Sodium 250 MG in Sodium Chloride 0.9% 50 ML IVPB SCH (08:33)
[2020-07-27] MEDS: Terazosin HCl 5 MG CAP PO SCH (08:34)
[2020-07-27] MEDS: Aspirin Chewable 81 MG TAB PO SCH (08:34)
[2020-07-27] MEDS: Zinc Sulfate 220 MG CAP PO SCH (08:34)
[2020-07-27] MEDS: Heparin 5,000 UNITS/ML VIAL SC SCH ×3 (08:34→20:05)
[2020-07-27] MEDS: Docusate Sodium 100 MG/10 ML UDCUP PO SCH ×2 (08:35→20:12)
[2020-07-27] MEDS: Colchicine 0.6 MG TAB PER TUBE SCH (08:35)
[2020-07-27] MEDS: Dexamethasone 4 mg/ml Vial SLOW IVP SCH (08:35)
[2020-07-27] MEDS: Polyethylene Glycol 3350 17 GM Packet PER TUBE SCH (08:35)
[2020-07-27] MEDS: Milk Of Magnesia 30 ML UDCUP PER TUBE SCH (08:35)
[2020-07-27 08:49] LABS: Actual Bicarbonate (HCO3a) 45.5 mEq/L (22-28); Base Excess (BEa) 17.9 mEq/L (-2.0 to +3.0); Calcium, Ionized (arterial) 1.22 mmol/L (1.12-1.30); Carboxyhemoglobin (COHb) 1.3 gm% (0.0-3.0); Hemoglobin (Hb) 9.6 g/dL (14.0-18.0); O2 Tension (PaO2), arterial 63.4 mmHg (> 80.0); Potassium - ABG Lab 4.23 mmol/L (3.70-5.30)
[2020-07-27 08:53] LABS: CO2 Tension 75.2 mmHg (35.0-45.0)
[2020-07-27 08:54] LABS: Puncture Site LBA
[2020-07-27] MEDS: Multivits W-Minerals Liquid 5 ML UDCUP PER TUBE SCH (09:06)
[2020-07-27] MEDS: NPH, Human Insulin Isophane 300 UNIT/3 ML VIAL SC SCH ×2 (09:06→21:19)
--- NOTE | 2020-07-27 10:27 | PRG ---
DATE OF SERVICE: 07/27/2020 SUBJECTIVE: The patient is about the same. He is on mechanical ventilation. He has been weaned down to 45% FiO2. OBJECTIVE: VITAL SIGNS: Temperature 99.8, pulse 96, blood pressure 140/70, O2 saturation 93%. HEENT: Unremarkable. NECK: Trach in good position. LUNGS: Coarse breath sounds. CARDIAC: S1 and S2. Regular. ABDOMEN: Soft. EXTREMITIES: No edema. IMAGING DATA: Chest x-ray shows some mild clearing of infiltrates. LABORATORY DATA: White blood cell count 11.7, hematocrit 20.4, and platelet count 191. PH 7.40, pCO2 of 75, PO2 of 63, on bilevel 28/10, FiO2 of 50%. Sodium 147, potassium 4, chloride 97, CO2 of 39, BUN 39, creatinine 0.7, glucose 122. ASSESSMENT: 1. COVID-19 pneumonia. 2. Acute respiratory failure requiring mechanical ventilation and tracheostomy. 3. Metabolic encephalopathy with negative head CT yesterday. PLAN: We will try to wean his Versed off. Ultimately, his lack of improvement in his mental status will probably be the determining factor in his recovery. He is developing a severe metabolic alkalosis and has been started on Diamox for that. I will speak with his today. Job ID: [id number]
[2020-07-27] MEDS: Insulin Regular 300 UNITS/3 ML VIAL SC PRN ×2 (13:03→17:09)
[2020-07-27] MEDS: Atorvastatin Calcium 10 MG TAB PO SCH (20:05)
[2020-07-27] MEDS: Pantoprazole 40 MG GRANULES PACKET PER TUBE SCH (20:05)
[2020-07-27] MEDS: Melatonin 3 MG TAB PO SCH (20:06)
[2020-07-28] MEDS: Acetaminophen 500 MG TAB PO PRN (01:09)
[2020-07-28 05:28] LABS: #Eosinphils 0.1 thou/uL (0.0-0.7); #Lymphocytes 0.7 thou/uL (1.20-3.40); #Monocytes 0.6 thou/uL (0.11-0.59); #Neutrophils 13.4 thou/uL (1.40-6.50); %Basophils 0.2 % (0.0-1.0); %Eosinophils 0.5 % (0.0-10.0); %Lymphocytes 4.4 % (21.0-51.0); %Monocytes 4.3 % (0.0-10.0); %Neutrophils 90.6 % (42.0-75.0); Hemoglobin 9.6 g/dL (14.0-18.0); Mean Corpuscular HGB CONC 31.7 g/dL (32.0-36.0); Mean Corpuscular Hemoglobin 31.3 pg (27.0-31.0); Mean Corpuscular Volume 98.8 fL (78.0-98.0); Mean Platelet Volume 10.6 fL (7.4-10.4); Platelet Count 193 thou/uL (130-400); RBC Distribution Width 15.9 % (11.5-14.5); Red Blood Cell (RBC) Count 3.05 mill/uL (4.70-6.10); White Blood Cell (WBC) Count 14.8 thou/uL (4.8-10.8)
[2020-07-28 05:33] LABS: BUN (Urea Nitrogen) 36 mg/dL (8.4-25.7); Calc. Creatinine Clearance 182 mL/min (70-130); Calcium 9.4 mg/dL (7.8-10.44); Glucose 83 mg/dL (80-115)
[2020-07-28 05:42] LABS: Anion Gap 15 mmol/L (10-20); Carbon Dioxide 33 mmol/L (23-31); Chloride 100 mmol/L (98-107); Potassium 4.1 mmol/L (3.5-5.1); Sodium 144 mmol/L (136-145)
[2020-07-28 08:19] LABS: Actual Bicarbonate (HCO3a) 35.8 mEq/L (22-28); Base Excess (BEa) 8.8 mEq/L (-2.0 to +3.0); Calcium, Ionized (arterial) 1.24 mmol/L (1.12-1.30); Carboxyhemoglobin (COHb) 1.1 gm% (0.0-3.0); Hemoglobin (Hb) 10.6 g/dL (14.0-18.0); pH, Arterial 7.37 (7.35-7.45)
[2020-07-28 08:23] LABS: ALV-art Gradient 180.725 mmHg (0-20); CO2 Tension 63.3 mmHg (35.0-45.0); Puncture Site RRA
--- NOTE | 2020-07-28 09:16 | RAD ---
CHEST 1 VIEW: HISTORY: Pneumonia. COMPARISON: Radiograph prior day. FINDINGS: Multifocal airspace opacities throughout the lungs. Left subclavian central venous catheter tip proj ects over the anterior SVC. Heart size is enlarged. Tracheostomy tube is in similar location. No a cute osseous abnormality. IMPRESSION: Similar exam of the chest. POS: HOME
[2020-07-28] MEDS: acetaZOLAMIDE Sodium 250 MG in Sodium Chloride 0.9% 50 ML IVPB SCH (09:18)
[2020-07-28] MEDS: Zinc Sulfate 220 MG CAP PO SCH (09:19)
[2020-07-28] MEDS: Terazosin HCl 5 MG CAP PO SCH (09:19)
[2020-07-28] MEDS: Docusate Sodium 100 MG/10 ML UDCUP PO SCH ×2 (09:19→21:53)
[2020-07-28] MEDS: Colchicine 0.6 MG TAB PER TUBE SCH (09:19)
[2020-07-28] MEDS: Milk Of Magnesia 30 ML UDCUP PER TUBE SCH (09:19)
[2020-07-28] MEDS: Aspirin Chewable 81 MG TAB PO SCH (09:19)
[2020-07-28] MEDS: Polyethylene Glycol 3350 17 GM Packet PER TUBE SCH (09:19)
[2020-07-28] MEDS: Dexamethasone 4 mg/ml Vial SLOW IVP SCH (09:19)
[2020-07-28] MEDS: Heparin 5,000 UNITS/ML VIAL SC SCH ×2 (09:20→15:27)
[2020-07-28] MEDS: Multivits W-Minerals Liquid 5 ML UDCUP PER TUBE SCH (09:37)
[2020-07-28] MEDS: NPH, Human Insulin Isophane 300 UNIT/3 ML VIAL SC SCH ×2 (09:37→21:56)
[2020-07-28] MEDS ORDERED: fentaNYL 50 mcg/hour Patch TD SCH (09:45)
--- NOTE | 2020-07-28 09:56 | PRG ---
DATE OF SERVICE: 07/28/2020 SUBJECTIVE: The patient continues on mechanical ventilation. He has had no real change in his status other than the sedation has been stopped and he is not waking up. OBJECTIVE: VITAL SIGNS: His temperature is 100.4 with a T-max of 101.5, pulse 103, blood pressure 135/80. HEENT: Unremarkable. NECK: No adenopathy or JVD. LUNGS: Coarse breath sounds bilaterally. CARDIAC: S1 and S2. Regular. ABDOMEN: Soft. EXTREMITIES: Edematous. IMAGING DATA: His x-ray shows diffuse bilateral infiltrates that are unchanged. LABORATORY DATA: White blood cell count 14.8, hematocrit 30.2, and platelet count 193. PH 7.37, pCO2 of 63, PO2 of 61 on bilevel 32/10, with a rate of 20, FiO2 45%. Sodium 144, potassium 4.1, chloride 100, CO2 of 33, BUN 36, creatinine 0.7, glucose 83. ASSESSMENT: 1. Coronavirus disease 2019 pneumonia. 2. Persistent acute hypoxic respiratory failure requiring mechanical ventilation, patient is now on hospital day #38. 3. Development of a fever. 4. Metabolic encephalopathy. PLAN: 1. Re-culture. 2. Would hold off on antibiotics unless culture showed positive results. 3. I will add a fentanyl patch and perhaps some scheduled Ativan to prevent withdrawal. Job ID: [id number]
[2020-07-28] MEDS ORDERED: Multivits W-Minerals Liquid 15 ML LIQ PER TUBE SCH (10:00)
[2020-07-28] MEDS: Lorazepam 1 MG TAB PER TUBE SCH ×2 (15:27→21:09)
[2020-07-28] MEDS ORDERED: Lidocaine 1% (PF) 30 ML VIAL SC SCH (15:30)
--- NOTE | 2020-07-28 15:52 | PDOC.EEG ---
Neurology EEG Report - Report Report: This EEG was performed using 24 channel [employer] video EEG machine with 24 disc electrodes. Digital analysis of the EEG was done for spike and seizure detection which revealed no abnormalities. Background: The posterior background rhythm is not observed. Hyperventilation: Not performed. Photic Stimulation: No significant response. Sleep: No stage change is observed. EEG Diagnosis: Generalized irregular theta intermixed with runs of delta activity. Absence of posterior background rhythm. Clinical Interpretation: This EEG is consistent with moderate to severe generalized nonspecific cerebral dysfunction. No electrographic seizures captured during the recording.
[2020-07-28] MEDS: Insulin Regular 300 UNITS/3 ML VIAL SC PRN (17:17)
--- NOTE | 2020-07-28 17:29 | PRG ---
DATE OF SERVICE: 07/28/2020 Mr. Harvey remains in the Intensive Care Unit on the ventilator. I am told he is receiving no sedation, but he has a very little evidence of spontaneous neurologic activity. He is not interactive at all. I had placed his tracheostomy and PEG tube on July 15. He is therefore 13 days out from that procedure. At some point, one of the sutures was removed from the lateral aspect of the left side of his tracheostomy incision. It was noted today that the skin is gapping open somewhat at that location and re-evaluation was requested. I decided to partially close this area with a Prolene suture to help with the healing of this wound. Procedure: The area was prepped with alcohol and anesthetized with 1% lidocaine. I placed a single interrupted suture of 2-0 Prolene loosely to allow partial approximation of the tissue in this area. I left it somewhat open so that drainage could still occur if it needs to. There were no bleeding or complications with this. I would recommend the suture be left in place for about 2 weeks. Job ID: [id number]
[2020-07-28] MEDS: Melatonin 3 MG TAB PO SCH (21:09)
[2020-07-28 21:33] LABS: Hemoglobin 8.8 g/dL (14.0-18.0)
[2020-07-28] MEDS: Atorvastatin Calcium 10 MG TAB PO SCH (21:53)
[2020-07-28] MEDS: Pantoprazole 40 MG GRANULES PACKET PER TUBE SCH (23:08)
[2020-07-29 04:43] LABS: #Lymphocytes 0.6 thou/uL (1.20-3.40); #Monocytes 0.8 thou/uL (0.11-0.59); #Neutrophils 14.1 thou/uL (1.40-6.50); %Basophils 0.1 % (0.0-1.0); %Eosinophils 0.2 % (0.0-10.0); %Lymphocytes 3.7 % (21.0-51.0); %Monocytes 4.8 % (0.0-10.0); %Neutrophils 91.1 % (42.0-75.0); Hemoglobin 8.6 g/dL (14.0-18.0); Mean Corpuscular HGB CONC 30.2 g/dL (32.0-36.0); Mean Corpuscular Hemoglobin 29.3 pg (27.0-31.0); Mean Platelet Volume 10.6 fL (7.4-10.4); Platelet Count 192 thou/uL (130-400); RBC Distribution Width 15.8 % (11.5-14.5); Red Blood Cell (RBC) Count 2.93 mill/uL (4.70-6.10); White Blood Cell (WBC) Count 15.5 thou/uL (4.8-10.8)
[2020-07-29 04:45] LABS: BUN (Urea Nitrogen) 43 mg/dL (8.4-25.7); Calc. Creatinine Clearance 166 mL/min (70-130); Calcium 9.2 mg/dL (7.8-10.44); Glucose 123 mg/dL (80-115)
[2020-07-29 05:03] LABS: Chloride 101 mmol/L (98-107); Potassium 4.1 mmol/L (3.5-5.1); Sodium 144 mmol/L (136-145)
[2020-07-29 05:05] LABS: Anion Gap 10 mmol/L (10-20); Carbon Dioxide 37 mmol/L (23-31)
[2020-07-29 07:26] VITALS: TEMP 99.6
[2020-07-29] MEDS: acetaZOLAMIDE Sodium 250 MG in Sodium Chloride 0.9% 50 ML IVPB SCH (08:35)
[2020-07-29] MEDS: Polyethylene Glycol 3350 17 GM Packet PER TUBE SCH (08:35)
[2020-07-29] MEDS: Docusate Sodium 100 MG/10 ML UDCUP PO SCH (08:35)
[2020-07-29] MEDS: Milk Of Magnesia 30 ML UDCUP PER TUBE SCH (08:35)
[2020-07-29] MEDS: Zinc Sulfate 220 MG CAP PO SCH (08:36)
[2020-07-29] MEDS: Colchicine 0.6 MG TAB PER TUBE SCH (08:36)
[2020-07-29] MEDS: Terazosin HCl 5 MG CAP PO SCH (08:36)
[2020-07-29] MEDS: Dexamethasone 4 mg/ml Vial SLOW IVP SCH (08:36)
[2020-07-29] MEDS: Aspirin Chewable 81 MG TAB PO SCH (08:36)
[2020-07-29] MEDS: Lorazepam 1 MG TAB PER TUBE SCH (08:36)
[2020-07-29] MEDS: NPH, Human Insulin Isophane 300 UNIT/3 ML VIAL SC SCH (08:58)
[2020-07-29] MEDS ORDERED: Modafinil 100 MG TAB PO SCH (09:00)
[2020-07-29] MEDS ORDERED: NPH, Human Insulin Isophane 300 UNIT/3 ML VIAL SC SCH (09:00)
[2020-07-29] MEDS ORDERED: Multivits W-Minerals Liquid 15 ML LIQ PER TUBE SCH (09:00)
--- NOTE | 2020-07-29 09:03 | RAD ---
PORTABLE CHEST: DATE: 07/29/2020. PROVIDED CLINICAL HISTORY: Pneumonia. FINDINGS: Comparison 07/28/2020. Significant interval change with respect to the prior examination is not appar ent. IMPRESSION: As above. POS: ARABELLA
--- NOTE | 2020-07-29 09:51 | PRG ---
DATE OF SERVICE: 07/29/2020 SUBJECTIVE: Mr. Harvey continues to have some problems with his tracheostomy site. He bled from the site last time and Dr. Quesada had to see him and address that. OBJECTIVE: VITAL SIGNS: His temperature is 99.6, but his T-max was 101.5; pulse 105; blood pressure 121/105. HEENT: Unremarkable. NECK: Trach site has some Surgicel in place. LUNGS: Coarse breath sounds. CARDIAC: S1 and S2. Regular. ABDOMEN: Soft. EXTREMITIES: Edematous throughout. LABORATORY DATA: White blood cell count 15.5, hematocrit 28.4, and platelet count 192. Sodium 144, potassium 4.1, chloride 101, CO2 of 37, BUN 43, creatinine 0.7, glucose 123. Chest x-ray looks about the same. Cultures obtained over the last couple of days show no positive results. ASSESSMENT: 1. Coronavirus disease 2019 pneumonia. 2. Acute respiratory failure requiring mechanical ventilation and tracheostomy placement. 3. Fever. 4. Protein-calorie malnutrition. PLAN: 1. Continue to hold off on antibiotics until we have some positive culture results. I am going to stop his acetazolamide. 2. Going to stop the steroids and reduce the insulin dose as his blood sugars will likely get better off the steroids. Job ID: [id number]
--- NOTE | 2020-07-29 10:16 | PRG ---
DATE OF SERVICE: 07/28/2020 I was called at about 7:30 to 7:45 about Mr. Harvey on 07/28/2020, informed me that he was bleeding significantly from around his tracheostomy. About 3 to 4 hours previously, I had placed a single interrupted suture in the lateral aspect to correct a small skin gap. I had infiltrated local anesthetic in and around the area of the suture. He had not bled at all during the procedure, had not bled for about 3 hours after I finished. Nursing staff told me that he had began bleeding significantly and there was blood all over his upper gown and they could not seem to control it and asked my evaluation. Upon presentation, he was hemodynamically stable with a heart rate of about 100. Respiratory rate was stable at about 40. When I examined the wound, there was clearly some bleeding from around the tracheostomy tube. It was presumed that it was bleeding from somewhere within the tracheostomy wound. I suctioned the blood and confirmed that there was still ongoing bleeding from within the wound. After suctioning the blood, I obtained four sheets of Surgicel Nu-Knit. I tucked two of them on each side of the tracheostomy tube to form pressure, an internal pressure dressing to tamponade where the oozing would have been and then I held pressure on both sides of the wound for about 5 minutes. When I finished this, I observed the wound for at least 10 minutes to ensure complete hemostasis. I replaced the tracheostomy dressing with 3 separate split gauze dressings underneath the tracheostomy flange and secured the flange snugly with the tracheostomy tie to again exert some pressure on the area. The patient was on heparin receiving 5000 units t.i.d. I asked that this be held for the time being to ensure complete hemostasis. If bleeding did not resolve with these conservative measures, then I would potentially need to return him to the operating room, open his tracheostomy wound to allow visualization of potential bleeding site to obtain hemostasis. It would be preferable to obtain hemostasis in this fashion. The Nu-Knit that I tucked inside is absorbable and we will dissolve with time. I will continue to follow this. Job ID: [id number]
[2020-07-29 11:30] VITALS: BP 120/67
[2020-07-29 11:36] VITALS: BMI 38.3
== END 2020-07-29 11:39 | disposition expired | DRG 4 ==
LOC: ERS 11:43 → T4-B 17:05 → IMCU/EMU 06-21 03:20
PROVIDERS: ADMIT Specialist; ATTEND Internal Medicine
PROC: XW033E5 Introduction of Remdesivir Anti-infective into Peripheral Vein, Percutaneous Approach, New Technology Group 5 (ICD-10-PCS; 2020-06-20)
PROC: 8E0ZXY6 Isolation (ICD-10-PCS; 2020-06-20)
PROC: XW13325 Transfusion of Convalescent Plasma (Nonautologous) into Peripheral Vein, Percutaneous Approach, New Technology Group 5 (ICD-10-PCS; 2020-06-21)
PROC: 5A09557 Assistance with Respiratory Ventilation, Greater than 96 Consecutive Hours, Continuous Positive Airway Pressure (ICD-10-PCS; 2020-06-23)
PROC: 5A1955Z Respiratory Ventilation, Greater than 96 Consecutive Hours (ICD-10-PCS; 2020-07-05)
PROC: 0BH17EZ Insertion of Endotracheal Airway into Trachea, Via Natural or Artificial Opening (ICD-10-PCS; 2020-07-05)
PROC: 06HY33Z Insertion of Infusion Device into Lower Vein, Percutaneous Approach (ICD-10-PCS; 2020-07-06)
PROC: 0B110F4 Bypass Trachea to Cutaneous with Tracheostomy Device, Open Approach (ICD-10-PCS; principal; 2020-07-15)
PROC: 0DH63UZ Insertion of Feeding Device into Stomach, Percutaneous Approach (ICD-10-PCS; 2020-07-15)
PROC: 02HV33Z Insertion of Infusion Device into Superior Vena Cava, Percutaneous Approach (ICD-10-PCS; 2020-07-15)
PROC: 3E0G76Z Introduction of Nutritional Substance into Upper GI, Via Natural or Artificial Opening (ICD-10-PCS; 2020-07-15)
PROC: 0HQ4XZZ Repair Neck Skin, External Approach (ICD-10-PCS; 2020-07-28)
DX: A41.9 Sepsis, unspecified organism (principal); U07.1 COVID-19; J12.82 Pneumonia due to coronavirus disease 2019; J96.01 Acute respiratory failure with hypoxia; G93.41 Metabolic encephalopathy; N17.9 Acute kidney failure, unspecified; E87.2 Acidosis; N18.4 Chronic kidney disease, stage 4 (severe); E87.0 Hyperosmolality and hypernatremia; G72.81 Critical illness myopathy; G93.1 Anoxic brain damage, not elsewhere classified; Z66 Do not resuscitate; R65.20 Severe sepsis without septic shock; E66.01 Morbid (severe) obesity due to excess calories; M75.100 Unspecified rotator cuff tear or rupture of unspecified shoulder, not specified as traumatic; E78.5 Hyperlipidemia, unspecified; E11.22 Type 2 diabetes mellitus with diabetic chronic kidney disease; D64.9 Anemia, unspecified; I12.9 Hypertensive chronic kidney disease with stage 1 through stage 4 chronic kidney disease, or unspecified chronic kidney disease; M19.90 Unspecified osteoarthritis, unspecified site; E83.39 Other disorders of phosphorus metabolism; E87.5 Hyperkalemia; R50.9 Fever, unspecified; Z87.891 Personal history of nicotine dependence; Z79.82 Long term (current) use of aspirin; Z79.84 Long term (current) use of oral hypoglycemic drugs; Z68.38 Body mass index [BMI] 38.0-38.9, adult
CPT/HCPCS: 0240U; 36415; 36416; 36430; 36600; 70450; 71045; 76000; 76770; 80048; 80053; 80061; 81001; 81003; 81015; 82805; 83605; 83735; 83880; 84100; 84484; 85014; 85018; 85025; 85379; 86704; 86706; 86803; 86850; 86900; 86901; 87040; 87070; 87086; 87205; 87340; 90935; 93005; 93306; 94002; 94003; 94660; 95816; 95819; 95957; 96365; 96366; 96367; 96375; C1751; C9113; G0257; J0456; J0690; J0696; J1100; J1120; J1642; J1644; J1815; J1940; J2060; J2270; J2405; J2704; J2930; J3010; J3490; J7030; J7050; J7070; P9017; P9047; S0020